=== PATIENT | female | born 2000 | race Caucasian/White ===

== ENCOUNTER 2025-05-14 18:24 | Emergency (ER) | payer OTHER, SELFPAY ==
--- OUTSIDE RECORDS SUMMARY | 2025-05-08 07:02 | XMS_ITS | Encounter Summary ---
Author Organization [facility] Address [address] [place] [address] Care Team Providers Care Registrar [employer] Name Role Phone Unavailable Primary Care Provider Unavailabl e Reason for Visit * Auth/Cert (Routine) Specialty Diagnoses / Procedures Referred By Contcecilia t Referred To Contact Obstetrics Codie Cali MD [address] [place] [phone] Phone: tel: fax: [facility] Labor and Delivery [address] [place] [address] Phone: tel: fax: Referral ID Status Reason Start Date Expiration Date Visits Re quested Visits Authorized [id number] 1 1 Encounter Details Date Type Department Care Team (Latest Contact Info) Description 05/08/2025 7:02 AM DIVISION SERGEANT - 05/10/2025 12:16 PM DIVISION SERGEANT Hospital Encounter [facility] [address] [place] [phone] Lulu Denton MD [address] [place] [address] [place] [phone] Codie Cali MD [address] [place] [phone] Breech Discharge Disposition: Home or Self Care Social History Tobacco Use Types Packs/Day Years Used Date Smoking Tobacco: Never Smokeless Tobacco: Never Alcohol Use Standard Drinks/Week Comments Not Currently 0 (1 standard drink = 0.6 oz pur e alcohol) Food Insecurity Answer Date Recorded Do you find you are eating l ess than you should because you can t pay for food? No 05/08/2025 Transportation Needs Answer Date Record ed Have you gone without health care because you didn t have a way to get there? Or worry about transportation for future doctor visits, apple picking supervisor medication, etc.? No 2024 Housing Stability Answer Date Recorded Do you worry you won t have a steady place to sleep or struggle to pay rent or mortgage? No 05/08/2025 Utility Needs Answer Date Recorded Do you have difficulty payin g for utility costs (electric, water or gas bills)? No 05/08/2025 Medication Needs Answer Date Recorded Have you skipped taking medi cation due to cost or worry you can t afford new medications? No 05/08/2025 Feeling Safe Answer Date Recorded Are you in a relationship wi th someone who hurts you emotionally and/or physically? No 04/22/2025 Food Insecurity Answer Date Recorded Patient needs follow up regardin 04/22/2025 Transportation Needs Answer Date Record ed Patient needs follow up regardin 04/22/2025 Utility Needs Answer Date Recorded Patient needs follow up regardin 04/22/2025 Comments No Sex and Gender Information Value Date Recorded Sex Assigned at Not on file Legal Sex Female 10:22 AM CDT Gender Identity Not on file Sexual Orientation Not on file documented as of this encounter Last Filed Vital Signs Vital Sign Reading Time Taken Comments Blood Pressure 131/78 05/10/2025 9:00 AM DIVISION SERGEANT Pulse 79 05/10/2025 9:00 AM DIVISION SERGEANT Temperature 36.6 C (97.9 F) 05/10/2025 9:00 AM DIVISION SERGEANT Respiratory Rate 16 05/10/2025 9:00 AM DIVISION SERGEANT Oxygen Saturation 98% 05/10/2025 9:00 AM DIVISION SERGEANT Inhaled Oxygen Concentration - - Weight 139.5 kg (307 lb 9.6 oz) 05/09/2025 4:15 AM DIVISION SERGEANT Height 182.9 cm (6') 05/08/2025 1:14 PM DIVISION SERGEANT Body Mass Index 41.72 05/08/2025 1:14 PM DIVISION SERGEANT documented in this encounter Functional Status * Morrison-Suicide Severity Rating Scale (Past Month) Question Answer Date of Assessment Author 1. Have you wished you were or wished you could go to sleep and not wake up? No 05/10/2025 8:25 AM DIVISION SERGEANT Delmis Aguilera R N 2. Have you actually had any thoughts of killing yourself? No 05/10/2025 8:25 AM Shahbaz Meyer RN 6. Have you ever done anythi ng, started to do anything, or prepared to do anything to end your life? No 05/10/2025 8:25 AM Delmis Meyer R N Is this encounter related to suicidal behavior/attempt? No 05/10/2025 4:06 AM Gaurav Hanks GN Reported By Patient 05/10/2025 4:06 AM Aristides Hanks GN * Chest Pain Assessment Question Answer Date of Assessment Author Description: Quality soreness 05/10/2025 8:55 AM Delmis Huynh RN Location: Orientation Bilateral:;lower 05/10/2025 8:55 AM Dlemis Meyer RN Location incision 05/10/2025 8:55 AM Delmis Meyer RN Pain Rating: Number 0-10 (rest) 3 05/10/2025 8:55 AM Delmis Meyer R N Response to Interventions content/relaxe d;verb alized relief 05/10/2025 8:55 AM Delmis Meyer RN * Micheal Risk Assessment Question Answer Date of Assessment Author Sensory Perception (response to environment) 4 05/10/2025 8:25 AM Delmis Meyer R N Moisture (degree skin expose d to moisture) 4 05/10/2025 8:25 AM Delmis Meyer R N Activity (ability to walk) 3 05/10/2025 8:2 5 AM Delmis Meyer RN Mobility (amount/control of body movement) 4 05/10/2025 8:25 AM Delmis Meyer R N Nutrition (quality of food intake) 4 2024 8:25 AM DIVISION SERGEANT Rohm, Delmis N, RN Friction and Shear 3 05/10/2025 8:25 AM Delmis Meeyr RN Micheal Score 22 05/10/2025 8:25 AM Delmis Meyer RN * Coping Question Answer Date of Assessment Author Involvement in Care: Significant Other at bedside;attentive to patient 05/10/2025 8:25 AM Delmis Meyer RN Observed Emotional State no concerns;calm 05/10/2025 4 :06 AM DIVISION SERGEANT Aristides Lao GN * Nipples Question Answer Date of Assessment Author Nipples (WDL) WDL except 05/10/2025 8:25 AM Delmis Meyer RN Nipples tender 05/10/2025 8:25 AM Delmis Meyer RN * Breasts Question Answer Date of Assessment Author Breasts (WDL) WDL 05/10/2025 8:25 AM Delmis Meyer RN * Perineum Question Answer Date of Assessment Author Perineum (WD) Not assessed 05/10/2025 8:25 AM Delmis Crabtree RN * Episiotomy Laceration Question Answer Date of Assessment Author Episiotomy Laceration (WDL) Not applicable 05/10/2025 8:25 AM Delmis Meyer RN * Uterus Question Answer Date of Assessment Author Uterus (WDL) WDL 05/10/2025 8:25 AM Delmis Meyer RN * Activity Question Answer Date of Assessment Author Present Activity in bed 05/10/2025 8:25 AM DIVISION SERGEANT Delmis Valentino RN * Modified Oziel Score Question Answer Date of Assessment Author Activity 2 05/08/2025 10:10 AM Maritza Trevino RN Respiration 2 05/08/2025 10:10 AM Maritza Trevino RN Circulation 2 05/08/2025 10:10 AM Maritza Trevino RN Consciousness 2 05/08/2025 10:10 AM Maritza Umanzor RN O2 Saturation 2 05/08/2025 10:10 AM Maritza Umanzor RN Dressing 2 05/08/2025 10:10 AM Mairtza Trevino RN Pain 2 05/08/2025 10:10 AM Maritza Trevino RN Ambulation 2 05/08/2025 10:10 AM Maritza Trevino RN Fasting/Feeding 2 05/08/2025 10:10 AM Maritza Pierre RN Urine Output 2 05/08/2025 10:10 AM Maritza Trevino RN Score 20 05/08/2025 10:10 AM Maritza Trevino RN * HEENT Assessments Question Answer Date of Assessment Author Ear ([facility]) [facility] 05/09/2025 9:17 PM DIVISION SERGEANT Aristides Lao GN Eye ([facility]) WD 05/09/2025 9:17 PM DIVISION SERGEANT Aristides Lao GN Vision Change: Left vision change denied 05/10/2025 8: 25 AM Delmis Meyer RN Vision Change: Right vision change denied 05/10/2025 8 :25 AM Delmis Meyer RN Head/Face ([facility]) [facility] 05/08/2025 9:09 PM DIVISION SERGEANT Aristides Francois GN Mouth ([facility]) [facility] 05/09/2025 9:17 PM DIVISION SERGEANT Aristides Lao GN * Safety Question Answer Date of Assessment Author Armband, In Place/Activated Identification;Securit y;Blood bank ID band 05/10/2025 8:25 AM Delmis Meyer RN Safety Checks Safety check completed 8:25 AM Delmis Meyer RN Activity Assist Needed Screening Independent 05/10/2025 8:25 AM Delmis Meyer RN Assistive Devices Screening None 05/10/2025 8:25 AM Delmis Meyer RN Nurse's Review of Fall Risk qShift Agree w/fall risk 05/10/2025 8:25 AM Delmis Meyer RN Add'l Individualized High Fall Risk Interventions None needed 05/10/2025 8:25 AM Delmis Meyer RN * Peripheral Neurovascular Question Answer Date of Assessment Author Peripheral Neurovascular ([facility]) [facility] except 05/08/2025 7:15 AM Maritza Trevino RN * Genitourinary Question Answer Date of Assessment Author Genitourinary ([facility]) [facility] 05/08/2025 12:10 PM Maritza Briggs RN * Skin Question Answer Date of Assessment Author Color/Characteristics pink 05/10/2025 8:25 AM Delmis Meyer RN Temperature warm 05/10/2025 8:25 AM Delmis Meyer RN Positioning independent 05/10/2025 8:25 AM Delmis Meyer RN Integrity other (comment) 05/10/2025 8:25 AM Delmis Mcnamara RN Skin (WDL) WDL except 05/10/2025 8:25 AM Delmis Meyer RN * Skin Interventions Question Answer Date of Assessment Author Hygiene Care perineal area cleans ed;other (see comments) 05/10/2025 8:25 AM Delmis Meyer RN * Pain Assessment Question Answer Date of Assessment Author Description: Frequency intermittent 8:55 AM Delmis Meyer RN Pain Management Interventions single medication modality 05/10/2025 8:25 AM Delmis Meyer RN Pain Assessment Pain Assessment/Numb er Scale (0-10) 05/10/2025 8:55 AM Delmis Meyer RN * Diabetes Risk Score (Usual Care) Answer Date of Assessment Author 19.95 05/10/2025 11:41 AM DIVISION SERGEANT QBatch, User * Diabetes Risk Score (DPP Lifestyle Modification) Answer Date of Assessment Author 8.38 05/10/2025 11:41 AM DIVISION SERGEANT QBatch, User * Diabetes Risk Score (Metformin) Answer Date of Assessment Author 17.3 05/10/2025 11:41 AM DIVISION SERGEANT QBatch, User * SIRS Score Answer Date of Assessment Author 0 05/10/2025 12:21 PM DIVISION SERGEANT QBatch, User * Void Output Question Answer Date of Assessment Author Urine Color light red 05/09/2025 2:30 AM DIVISION SERGEANT Aristides Lao GN Urine Characteristics clear 05/09/2025 2:30 AM DIVISION SERGEANT Aristides Lao GN Incontinence Containment Product Urine collection device 05/09/2025 2:30 AM Aristides Hanks GN Unmeasured Void Moderate amount urine 05/10/2025 9:00 AM DIVISION SERGEANT Pulber Marcy, BLOOD TESTER FOWL * Activity & Exercise Question Answer Date of Assessment Author Intake (%) 100% 05/09/2025 12:00 PM Delmis Meyer RN Food/Meal Outside meal/brought from home 05/09/2025 12:00 PM Delmis Meyer RN * Hygiene & Comfort Question Answer Date of Assessment Author Comfort BP;O 05/08/2025 12:00 PM Maritza Trevino RN * Antiembolism Devices Question Answer Date of Assessment Author Sequential Compression Device (SCDs) Removed/off 05/09/2025 3:45 PM Delmis Meyer R N Antiembolism Stocking Order to discontinue 05/10/2025 4:06 AM Aristides Hanks GN * Musculoskeletal Question Answer Date of Assessment Author Musculoskeletal (WDL) WDL 05/10/2025 8:25 AM Delmis Meyer RN * Pre-eclampsia Signs and Symptoms Question Answer Date of Assessment Author Preeclampsia Signs and Symptoms Swelling 8:25 AM Delmis Meyer RN * Edema Question Answer Date of Assessment Author Edema 1+ 05/10/2025 8:25 AM Delmis Meyer RN * Patient's Plans Question Answer Date of Assessment Author Plan for Pain Management Other (comment) 05/08/2025 7: 52 AM Maritza Trevino RN * RETIRED Cardiovascular Question Answer Date of Assessment Author Cardiac (WDL) WD 05/08/2025 10:10 AM Maritza Umanzor RN * Respiratory Question Answer Date of Assessment Author Respiratory (WDL) WD 05/10/2025 8:25 AM Delmis Meyer RN * Peripheral Neurovascular Question Answer Date of Assessment Author Capillary Refill equal to/less than 3 secs 05/10/2025 8:25 AM Delmis Meyer RN Calf Tenderness calf tenderness not present 05/10/2025 8:25 AM Delmis Meyer RN Peripheral Neurovascular (WD) WD except 05/10/2025 8:25 AM Delmis Meyer RN * Deep Tendon Reflexes Question Answer Date of Assessment Author Clonus None 05/10/2025 8:25 AM Delmis Meyer RN * Cognitive/Perceptual/Neuro Question Answer Date of Assessment Author Orientation oriented to;person;place;time;situation 05/10/2025 4:06 AM Aristides Hanks GN * Gastrointestinal Question Answer Date of Assessment Author Last Bowel Movement (mm/dd/yyyy) [id number] 05/10/2025 8:25 AM Delmis Meyer R N Bowel Sounds: All Quadrants hypoactive 05/09/2025 7: 50 AM Delmis Meyer RN Signs/Symptoms passing flatus 05/10/2025 8:25 AM Delmis Calderon RN Gastrointestinal ([facility]) WD 05/10/2025 8:25 AM Delmis Meyer RN * Genitourinary Question Answer Date of Assessment Author Voiding Characteristics urinary device present 05/08/2025 9:09 PM Aristides Hanks GN Genitourinary ([facility]) WD 05/10/2025 8:25 AM CS T Delmis Aguilera RN * Cardiovascular Question Answer Date of Assessment Author Cardiac ([facility]) WD 05/10/2025 8:25 AM Delmis Meyer RN * Lochia 1-3 Days Question Answer Date of Assessment Author Lochia 1-3 Days ([facility]) WD 05/10/2025 8:25 AM Delmis Meyer RN Odor similar to menstrual flow 05/10/2025 8:25 AM Delmis Meyer RN Amount scant (less than 2.5 cm on pad/hr) 05/10/2025 8:25 AM Delmis Meyer RN * Suicide Risk and Interventions Answer Date of Assessment Author No Risk 05/10/2025 8:25 AM Jenny Meyer RN * Suspected Infection Answer Date of Assessment Author 0 05/10/2025 12:21 PM DIVISION SERGEANT QBatch, User * Organ Dysfunction Score Answer Date of Assessment Author 0 05/10/2025 12:21 PM DIVISION SERGEANT QBatch, User * Sepsis Score Answer Date of Assessment Author 0 05/10/2025 12:21 PM DIVISION SERGEANT QBatch, User * Severe Sepsis Score Answer Date of Assessment Author 0 05/10/2025 12:21 PM DIVISION SERGEANT QBatch, User * Septic Shock Score Answer Date of Assessment Author 0 05/10/2025 12:21 PM DIVISION SERGEANT QBatch, User * Sepsis Review Score Answer Date of Assessment Author 0 05/10/2025 12:21 PM DIVISION SERGEANT QBatch, User * Septic Shock Criteria Answer Date of Assessment Author 0 05/10/2025 12:21 PM DIVISION SERGEANT QBatch, User * OB VTE Risk Assessment Question Answer Date of Assessment Author Have you been hospitalized m ore than 3 days in the last month? 0 05/08/2025 7:49 AM Maritza Trevino RN History of clotting/bleeding disorder? Patient denies 05/08/2025 7:49 AM Maritza Trevino RN OB VTE Score 1 05/08/2025 7:49 AM Maritza Trevino RN BMI (auto calculated) 41.76 05/08/2025 7:49 AM Maritza Trevino RN OB VTE Score Indicates Low Risk 05/08/2025 7:49 AM Maritza Trevino RN * Severe Pneumonia Score Answer Date of Assessment Author 3 05/10/2025 12:00 PM DIVISION SERGEANT QBatch, User * Two Person Skin Check Question Answer Date of Assessment Author Is Redness Present? No 05/08/2025 1:15 PM CS Janette Araujo RN Cyber Software Engineer 1 B Willy JOHNSON 05/08/2025 1:15 PM Janette Grady RN Cyber Software Engineer 2 Cynthia Airas RN 05/08/2025 1:15 PM Janette Ortega, RN * Petra Emanuel Fall Risk on Admission Question Answer Date of Assessment Author Last Known Fall 0 05/08/2025 7:53 AM Maritza Cunningham RN Mobility 0 05/08/2025 7:53 AM Maritza Trevino RN Medications 0 05/08/2025 7:53 AM Maritza Trevino RN Mental Status/LOC/Awareness 0 05/08/2025 7: 53 AM Maritza Trevino RN Toileting Needs 0 05/08/2025 7:53 AM Maritza Cunningham RN Volume/Electrolyte Status 0 05/08/2025 7:53 AM Maritza Trevino RN Communication/Sensory 0 05/08/2025 7:53 AM Maritza Trevino RN Behavior 0 05/08/2025 7:53 AM Maritza Trevino RN Fall Risk Score on Admission (read only) 1 05/08/2025 7:53 AM Maritza Trevino RN Patient's Fall Risk on Admis feliberto (read only) Low 05/08/2025 7:53 AM Maritza Trevino RN * Current Predicted Fall Risk Designation (read only) Answer Date of Assessment Author Low 05/10/2025 7:50 AM DIVISION SERGEANT Backgroun d, Cognitive Computing * PPH Risk Category Admission Question Answer Date of Assessment Author Prior or Prio r Uterine Incision No 05/08/2025 7:51 AM Maritza Trevino RN Number of Previous Births 1 05/08/2025 7:51 AM Maritza Trevino RN Multiple Births No 05/08/2025 7:51 AM Maritza Cunningham RN Known Bleeding Disorder or Coagulopathy No 1 07/09/2024 7:51 AM Maritza Trevino RN Known Intrauterine Demise No 7:51 AM Maritza Trevino RN Large Uterine Fibroids No 05/08/2025 7:51 AM Maritza Trevino RN Intraamniotic Infection No 05/08/2025 7:51 A M Maritza Trevino RN Polyhydramnios No 05/08/2025 7:51 AM Maritza Umanzor RN Suspected Pre-Eclampsia or H ELLP Syndrome No 05/08/2025 7:51 AM Maritza Trevino RN Active Bleeding More Than Bloody Show No 1 07/09/2024 7:51 AM Maritza Trevino RN Suspected Abruption No 05/08/2025 7:51 AM CS T Maritza Olivera RN Suspected Placenta Accreta or Percreta No 7:51 AM Maritza Trevino RN Placenta Previa or Low Lying Placenta No 7:51 AM Maritza Trevino RN Does patient have any history of PPH? No 7:51 AM Maritza Trevino RN * PPH Risk Category: Post Question Answer Date of Assessment Author Did the patient experience a uterine rupture? No 05/08/2025 10:10 AM Maritza Trevino RN Is the patient actively blee ding enough to soak >1 pad/hr or passing large clot (>= 6 cm)? No 05/08/2025 10:10 AM Maritza Trevino R N Did the patient have a retai francheska placenta or difficult placental abstraction? No 05/08/2025 10:10 AM Maritza Trevino RN Significant genital trauma? No 05/08/2025 10 :10 AM Maritza Trevino RN * Adult Acuity Scoring Question Answer Date of Assessment Author Current Predicted Fall Risk (auto calculated) 0.79 05/10/2025 7:50 AM DIVISION SERGEANT Yousif Cogni tive Computing Sofa Score(auto calculated) 4 05/10/2025 12 :02 PM DIVISION SERGEANT QBatch, User Readmission Risk Score 5 05/10/2025 12:31 P M Janette Leiva RN [id number] Score (Used for patients with atrial fibrillation) 1 05/10/2025 12:31 PM Patricia Leiva RN HAS-BLED Score (Used for patients with atrial fibrillation) 1 05/10/2025 12:31 PM Patricia Leiva RN * Score Answer Date of Assessment Author 10 05/08/2025 10:10 AM Araseli Trevino RN * Care Question Answer Date of Assessment Author Patellar Reflex: Left +1 05/08/2025 7:44 AM Maritza Trevino RN Patellar Reflex: Right +1 05/08/2025 7:44 AM Maritza Trevino RN * Micheal Risk Assessment Question Answer Date of Assessment Author Activity (ability to walk) 3 05/10/2025 8:2 5 AM Delmis Meyer RN Mobility (amount/control of body movement) 4 05/10/2025 8:25 AM Delmis Meyer R N * Activity Question Answer Date of Assessment Author Present Activity in bed 05/10/2025 8:25 AM Delmis Calderon RN * Modified Oziel Score Question Answer Date of Assessment Author Activity 2 05/08/2025 10:10 AM Maritza Trevino RN Respiration 2 05/08/2025 10:10 AM Maritza Trevino RN Circulation 2 05/08/2025 10:10 AM Maritza Trevino RN Consciousness 2 05/08/2025 10:10 AM Maritza Umanzor RN O2 Saturation 2 05/08/2025 10:10 AM Maritza Umanzor RN Dressing 2 05/08/2025 10:10 AM Maritza Trevino RN Pain 2 05/08/2025 10:10 AM Maritza Trevino RN Ambulation 2 05/08/2025 10:10 AM Maritza Trevino RN Fasting/Feeding 2 05/08/2025 10:10 AM Maritza Pierre RN Urine Output 2 05/08/2025 10:10 AM Maritza Trevino RN Score 20 05/08/2025 10:10 AM Maritza Trevino RN * Safety Question Answer Date of Assessment Author [place], In Place/Activated Identification;Securit y;Blood bank ID band 05/10/2025 8:25 AM eDlmis Meyer RN Safety Checks Safety check completed 8:25 AM Delmis Meyer RN Activity Assist Needed Screening Independent 05/10/2025 8:25 AM Delmis Meyer RN Assistive Devices Screening None 05/10/2025 8:25 AM Delmis Meyer RN Nurse's Review of Fall Risk qShift Agree w/fall risk 05/10/2025 8:25 AM Delmis Meyer RN Add'l Individualized High Fall Risk Interventions None needed 05/10/2025 8:25 AM Delmis Meyer RN * Skin Question Answer Date of Assessment Author Positioning independent 05/10/2025 8:25 AM Delmis Meyer RN * Skin Interventions Question Answer Date of Assessment Author Hygiene Care perineal area cleans ed;other (see comments) 05/10/2025 8:25 AM Delmis Meyer RN * Activity & Exercise Question Answer Date of Assessment Author Intake (%) 100% 05/09/2025 12:00 PM Delmis Meyer RN Food/Meal Outside meal/brought from home 05/09/2025 12:00 PM Delmis Meyer RN * Hygiene & Comfort Question Answer Date of Assessment Author Comfort BP;O 05/08/2025 12:00 PM Maritza Trevino RN * Antiembolism Devices Question Answer Date of Assessment Author Sequential Compression Device (SCDs) Removed/off 05/09/2025 3:45 PM DIVISION SERGEANT Delmis Aguilera R N Antiembolism Stocking Order to discontinue 05/10/2025 4:06 AM Aristides Hanks GN * Musculoskeletal Question Answer Date of Assessment Author Musculoskeletal (WDL) WDL 05/10/2025 8:25 AM Delmis Meyer RN * Cognitive/Perceptual/Neuro Question Answer Date of Assessment Author Orientation oriented to;person;place;time;situation 05/10/2025 4:06 AM Aristides Hanks GN * Petra Emanuel Fall Risk on Admission Question Answer Date of Assessment Author Last Known Fall 0 05/08/2025 7:53 AM Maritza Cunningham RN Mobility 0 05/08/2025 7:53 AM Maritza Trevino RN Medications 0 05/08/2025 7:53 AM Maritza Trevino RN Mental Status/LOC/Awareness 0 05/08/2025 7: 53 AM Maritza Trevino RN Toileting Needs 0 05/08/2025 7:53 AM Maritza Cunningham RN Volume/Electrolyte Status 0 05/08/2025 7:53 AM Maritza Trevino RN Communication/Sensory 0 05/08/2025 7:53 AM Maritza Trevino RN Behavior 0 05/08/2025 7:53 AM Maritza Trevino RN Fall Risk Score on Admission (read only) 1 05/08/2025 7:53 AM Maritza Trevino RN Patient's Fall Risk on Admis feliberto (read only) Low 05/08/2025 7:53 AM Maritza Trevino RN * Current Predicted Fall Risk Designation (read only) Answer Date of Assessment Author Low 05/10/2025 7:50 AM DIVISION SERGEANT Backgroun d, Cognitive Computing * Adult Acuity Scoring Question Answer Date of Assessment Author Current Predicted Fall Risk (auto calculated) 0.79 05/10/2025 7:50 AM DIVISION SERGEANT Background, Cogni tive Computing documented as of this encounter Mental Status * Morrison-Suicide Severity Rating Scale (Past Month) Question Answer Entry Date Author 1. Have you wished you were or wished you could go to sleep and not wake up? No 05/10/2025 8:25 AM Delmis Meyer R N 2. Have you actually had any thoughts of killing yourself? No 05/10/2025 8:25 AM Shahbaz Meyer RN 6. Have you ever done anythi ng, started to do anything, or prepared to do anything to end your life? No 05/10/2025 8:25 AM Delmis Meyer R N Is this encounter related to suicidal behavior/attempt? No 05/10/2025 4:06 AM Gaurav Hanks GN Reported By Patient 05/10/2025 4:06 AM Aristides Hanks GN * Coping Question Answer Entry Date Author Observed Emotional State no concerns;calm 05/10/2025 4 :06 AM Aristides Hanks GN * Safety Question Answer Entry Date Author Bri, In Place/Activated Identification;Securit y;Blood bank ID band 05/10/2025 8:25 AM Delmis Meyer RN * Peripheral Neurovascular Question Answer Entry Date Author Peripheral Neurovascular (WDL) WDL except 05/08/2025 7:15 AM Maritza Trevino RN * Deep Tendon Reflexes Question Answer Entry Date Author Clonus None 05/10/2025 8:25 AM Delmis Meyer RN * Cognitive/Perceptual/Neuro Question Answer Entry Date Author Cognitive/Perceptual/Neur o (WDL) WDL 05/10/2025 8:25 AM Delmis Meyer RN Orientation oriented to;person;place;time;s ituation 05/10/2025 4:06 AM Aristides Hanks GN * Spiritual and Cultural Question Answer Entry Date Author Are there any spiritual or c ultural concerns with this ? NI 05/10/2025 8:25 AM Shahbaz Meyer RN * Total Answer Entry Date Author 0 05/10/2025 8:25 AM Jenny Meyer RN * Suicide Risk and Interventions Answer Entry Date Author No Risk 05/10/2025 8:25 AM Jenny Meyer RN * SEAN Response Question Answer Entry Date Author SEAN Response Activated No 05/10/2025 4:06 A M DIVISION SERGEANT Aristides Lao, GN * Violence Assessment Tool Risk Indicators Question Answer Entry Date Author Violence Assessment Tool Total Score 0 05/10/2025 4:06 AM DIVISION SERGEANT Aristides Lao GN Assessment Type Reassessment 05/10/2025 4:06 AM DIVISION SERGEANT Aristides Francois N, GN History of Violence 0 05/10/2025 4:06 AM CS Aristides Carpenter N, GN Confused 0 05/10/2025 4:06 AM DIVISION SERGEANT Aristides Lao N, GN Irritable 0 05/10/2025 4:06 AM DIVISION SERGEANT Niecy Laoy N, GN Boisterous 0 05/10/2025 4:06 AM DIVISION SERGEANT Aristides Lao N, GN Verbal Threats 0 05/10/2025 4:06 AM DIVISION SERGEANT Bryan toAristides, GN Physical Threats 0 05/10/2025 4:06 AM DIVISION SERGEANT Aristides Alexander, GN Attacking Objects 0 05/10/2025 4:06 AM DIVISION SERGEANT Niecy Laoy N, GN Agitated/Impulsive 0 05/10/2025 4:06 AM DIVISION SERGEANT Niecy Laoy N, GN Paranoid/Suspicious 0 05/10/2025 4:06 AM CS Aristides Carpenter, GN Substance Intoxication/Withdrawal 0 05/10/2025 4:06 AM DIVISION SERGEANT Niecy Laoy N, GN Socially Inappropriate/Disruptive Behavior 0 05/10/2025 4:06 AM DIVISION SERGEANT Aristides Lao GN Body Language 0 05/10/2025 4:06 AM DIVISION SERGEANT Aristides Howell N, GN * Violence Risk Question Answer Entry Date Author Are you concerned about the patient's violence risk? No 05/10/2025 4:06 AM DIVISION SERGEANT Niecy Lao y N GN * [place] Depression Scale Concern Calculation Answer Entry Date Author 2 05/08/2025 3:50 PM DIVISION SERGEANT Jenny Aguilera N, RN * Violence Assessment Tool Total Score Answer Entry Date Author 0 05/10/2025 4:06 AM DIVISION SERGEANT Melissa Lao GN * [place] Depression Scale: In the Past 7 Days Question Answer Entry Date Author I have been able to laugh an d see the funny side of things. 0 05/08/2025 3:50 PM DIVISION SERGEANT Dario Aguilera i, RN I have looked forward with e njoyment to things. 0 05/08/2025 3:50 PM DIVISION SERGEANT Delmis Aguilera, R N I have blamed myself unneces sarily when things went wrong. 1 05/08/2025 3:50 PM DIVISION SERGEANT Delmis Aguilera RN I have been anxious or worri ed for no good reason. 1 05/08/2025 3:50 PM DIVISION SERGEANT Delmis Aguilera, R N I have felt scared or panick y for no good reason. 1 05/08/2025 3:50 PM DIVISION SERGEANT Delmis Aguilera, Jayla N Things have been getting on top of me. 1 05/08/2025 3:50 PM DIVISION SERGEANT Delmis Aguilera, R N I have been so unhappy that I have had difficulty sleeping. 0 05/08/2025 3:50 PM DIVISION SERGEANT Delmsi Aguilera RN I have felt sad or miserable. 1 05/08/2025 3:50 PM DIVISION SERGEANT Delmis Aguilera RN I have been so unhappy that I have been crying. 1 05/08/2025 3:50 PM DIVISION SERGEANT Delmis Aguilera, R N The thought of harming mysel f has occurred to me. 0 05/08/2025 3:50 PM DIVISION SERGEANT Delmis Aguilera, R N [place] Depressi on Scale Total 6 05/08/2025 3:50 PM DIVISION SERGEANT Delmis Aguilera, R N * Care Question Answer Entry Date Author Patellar Reflex: Left +1 05/08/2025 7:44 AM Maritza Trevino RN Patellar Reflex: Right +1 05/08/2025 7:44 AM Maritza Trevino RN documented in this encounter Discharge Instructions * Discharge Instructions* Delmis Aguilera RN - 05/10/2025 10:20 AM DIVISION SERGEANT Discharge Instructions for Patients RHOGAM: Candidate for Rhogam? No EMOTIONS: It is not unusual to experience a letdown or have depressed feelings even though you are extremely happy and relieved after childbirth. If you or your family have concerns about your emotions notify your physician. Contact 911 if you have thoughts of harming yourself or your baby. HYPERTENSION/PRECLAMPSIA: If not treated , hypertension may cause seizures Symptoms of hypertension/pre-eclampsia include Headache which is unrelieved by a dose of Tylenol or Ibuprofen Visual changes such as blurry or double vision or seeing spots/flashing lights Upper abdominal pain Chest pain or shortness of breath Blood Pressure equal to or greater than 140 systolic (top number) OR equal to or greater than 90 diastolic (bottom number) If you have any of these symptoms, call your doctor???s office for instructions. ACTIVITY: Rest frequently while baby is napping. Increase your activity each day as tolerated. It may take 6 to 8 weeks to return to pre- activity levels. Avoid straining; no lifting greater than 10 lbs for 1-2 weeks. Be cautious when going up and down stairs. You may shower. No douching, tampons or intercourse until you return for your check up. No driving for 2 weeks from date of discharge. Do not drive while taking narcotic pain medications. SECTION: Remove the Mepilex dressing from your incision on day 7 to 10 ( 05/18/25 per Isabell HICKEY ) unless directed otherwise by your provider. After you shower, pat the section incision dry with a clean towel. Look at the -section incision daily; notify your physician if there is an increase in redness or drainage. Do not sit in tub of water until given permission by your physician. For ease of movement, after a , hold a pillow firmly against the incision or wear your binder when changing position or wear your abdominal binder. Keep hands off the incision to help prevent infection. Good hand hygiene helps prevent the spread of infectious disease. DIET: Eat a balanced diet, do not try to lose weight by cutting calories immediately after delivery. Drink 6-8 glasses of fluid daily. Continue your vitamins, especially if you are . : Refer to [facility] outpatient department, your OB/assistant therapy aide/criminal court judge's office for questions about . FORMULA FEEDING: Avoid breast stimulation, such as direct shower spray to chest Do not pump your breasts as this may cause milk production and possible engorgement. Wear a good support bra day & night until the fullness goes away. If breasts are painful and engorged, using cold compresses for 15 - 20 minutes at a time to the breasts and/or under the arms may provide relief. ABDOMINAL CRAMPS: Many women experience after- pains, caused by the uterus shrinking down to its pre- size. These cramps may increase when . Discuss pain medication with your doctor. VAGINAL DISCHARGE: The first week the vaginal drainage will be red - red brown in color. If you experience bleeding that saturates one maxi-pad in an hour, or you pass golf ball size clots or larger, notify your physician. After the first few days vaginal drainage will decrease and become watery and turn brown/pinkish brown. By 3-4 weeks the discharge will turn yellowish-white. Do not douche or use tampons. HEMORRHOIDS: Hemorrhoids may appear during or at delivery. They will slowly disappear. Use sitz baths and/or topical medication for relief of discomfort. To avoid constipation drink of plenty fluids andeat foods high in fiber daily. May continue to take stool softeners as directed by your physician. EPIDURAL/SPINAL ANESTHESIA: You may be sore or bruised where your epidural or spinal was placed. Notify your physician if you experience headache that worsens when you sit or stand, numbness or weakness of your legs or if you have difficulty emptying your bladder. SEXUAL INTERCOURSE: You may resume intercourse after approximately 6 weeks. Talk with your physician about control as it is possible to become again before your period returns even if you are . CALL THE DOCTOR IF YOU EXPERIENCE: Persistent Headache unrelieved by medication Visual changes such as blurry vision, spots or flashing lights Upper abdominal pain, chest pain or shortness of breath If you have been instructed to take your blood pressure at home, call and report Blood Pressure readings equal to or greater than 140 systolic (top number) OR equal to or greater than 90 diastolic (bottom number) A temperature above 100.4 F. Increased redness, drainage or pain from the Section incision New pain or pain not controlled by prescribed medication Heavy vaginal bleeding or are passing golf ball size clots Light headedness Chest pain or shortness of breath Swelling, redness, and/or tenderness in legs Difficulty urinating or increased frequency or burning with urination Notify your physician if you have persistent breast swelling, with tenderness accompanied by redness Ask your doctor before taking any medications that he/she did not prescribe for you. Acetaminophen (APAP, Tylenol) is found in many combination pain medications. Acetaminophen can be harmful to your liver. Do not exceed 3000mg/day. SMOKING CESSATION: If you smoke/vape you are advised to quit. Ask your doctor for advice if you need assistance to stop smoking. [facility] has a stop smoking program that you might find helpful; call [phone]. Second-hand smoke is not healthy for you or the baby so do not allow smoking in your house or car. Education: [x] POST magnet given [x] Instructed patient to add the AIM Pre-eclampsia symptoms QR code to their phone [x] Received Your Guide to and Care Discharging RN : Delmis Aguilera RN SION SERGEANT * Attachments The following attachments cannot be sent through Care Everywhere. * Section: Post op (Lao) * After Your : The First 12 Weeks: Video (Lao) documented in this encounter Medications at Time of Discharge oxyCODONE (ROXICODONE) 5 mg tabletIndications :S/P section Take 1 Tablet (5 mg) by mouth every 4 hours as needed for Pain. Max Daily Amount: 30 mg 20 Tablet 05/10/2025 11:59 AM DIVISION SERGEANT 05/10/2025 05/14/2025 ibuprofen (MOTRIN) 800 mg tablet Take 1 Tablet (800 mg) by mouth every 8 hours as needed for Pain, Mild. 30 Tablet 1 05/10/2025 VIT-IRON FUM-FOLIC AC ORAL Take by mouth daily. documented as of this encounter Progress Notes * Amber Lee MD - 05/09/2025 8:07 AM CST Section Postoperative Progress Note Subjective: Day 1: s/p Delivery The patient feels well. Pain is well controlled with current medications. The patient is ambulatingwell. The patient is currently . The patient is tolerating a normal diet. Flatus has been passed. Lochia is normal. Objective: BP 110/65 Pulse 73 Temp 97.6 ??F (36.4 ??C) (Temporal) Resp 18 Ht 6' (1.829 m) Wt (!) 139.5 kg (307 lb 9.6 oz) SpO2 97% Yes BMI 41.72 kg/m?? General: alert, in no distress Breast Exam deferred at this time Bowel Sounds: active Uterine Fundus: normal size, well involuted, firm, non-tender Incision: healing well, no significant drainage, no dehiscence, no significant erythema DVT Evaluation: No evidence of DVT seen on physical exam. Lab Results Component Value Date ABOGROUP O 05/08/2025 Lab Results Component Value Date WBC 10.5 05/09/2025 HGB 10.9 (L) 05/09/2025 HCT 32.8 (L) 05/09/2025 PLT 163 05/09/2025 MCV 89.9 05/09/2025 Lab Results Component Value Date RUBELLAIGG Immune 09/23/2024 Assessment: Status post section. Doing well postoperatively. Active Problems: Obesity (BMI 35.0-39.9 without comorbidity) Breech Plan: Continue current postoperative care. Discharge home moday; D/C instructions discussed. F/U in 6 weeks. Oral pain meds Amber Lee MD SION SERGEANT * Delmis Aguilera RN - 05/08/2025 12:31 PM CST [facility] C SECTION REPORT-MOTHER Bri Emanuel 25 y.o. 05/08/2025 1:15 PM Provider: Luiza Martinez Cnm Delivery Provider: LULU DENTON /Para: Gestational Age: 39w6d Date of Delivery: 05/08/2025 Time of Delivery: 9:35 AM Type of Delivery: , Low Transverse Principal Indication: Malpresentation Secondary Indication: Primary or Repeat : primary Labor Complications: Anesthesia: Spinal *For Additional Medication given by Anesthesia go to Procedure tab in the MAR Duramorph given: yes Terbutaline given during labor: no Diagnosis of Chorioamnionitis: no Post Delivery Antibiotics: no Maternal labs: Lab Results Component Value Date/Time ABOGROUP O 05/08/2025 08:16 AM RHTYPE Positive 05/08/2025 08:16 AM RUBELLAIGG Immune 09/23/2024 12:00 AM HIV1X2 nonreactive 09/23/2024 12:00 AM Lab Results Component Value Date SYPHABTOT Non-reactive 05/08/2025 Lab Results Component Value Date/Time HEPBSAG negative 09/23/2024 12:00 AM Drug Screen: No results found for: AMPHETAMINEQ , BARBITQLUR , BENZDIAQLUR , CANNABQLUR , OPIATEQUA , COCAINEQUAL , PHENCYCLID Current Labs: Lab Results Component Value Date WBC 10.2 05/08/2025 HGB 13.2 05/08/2025 HCT 39.5 05/08/2025 PLT 170 05/08/2025 MCV 88.8 05/08/2025 Medical History: No past medical history on file. Patient Active Problem List Diagnosis Code Obesity (BMI 35.0-39.9 without comorbidity) E66.9 Breech presentation O32.1XX0 care, subsequent in third trimester Z34.83 Breech O32.1XX0 Social History: Social History Tobacco Use Smoking Status Never Smokeless Tobacco Never Social History Substance and Sexual Activity Drug Use Never Social History Substance and Sexual Activity Alcohol Use Not Currently Social Concerns: No Hotline Call Made: No Hotline Note Applied: N/A IV:Yes EBL: No blood loss documented. QBL: QBL: Quantitative Blood Loss (mL) CALCULATED, READ ONLY: 86 mL (05/08/25 1250) Running Total QBL: Running Total QBL (mL) CALCULATED, READ ONLY: 877.8 (05/08/25 1250) Vitals: BP 126/65 Temp 97 ??F (36.1 ??C) (Tympanic) Resp 12 Ht 6' 0.01 (1.829 m) Wt (!) 139.7 kg (308 lb) SpO2 98% Unknown BMI 41.76 kg/m?? Uterus Uterus (WDL): WDL (05/08/25 1250) Fundal Height: 1 finger breadth below umbilicus (05/08/25 1250) Uterus Position: midline (05/08/25 1250) Uterus Consistency: firm w/o massage (05/08/25 1250) Lochia 1-3 Days Lochia 1-3 Days (WDL): WDL except (05/08/25 1250) Color: rubra (05/08/25 1250) Amount: clots present;moderate (less than 15 cm on pad/hr) (05/08/25 1250) Void: Romo catheter dependent to gravity Plan to Breastmilk feed? (Asked prior to first feed): Yes (05/08/25 0752) Data Validate disassociated Yes Any Validated Severe range pressures during this admission: no Mother Facility worksheet complete Yes Additional Information: Increased bleeding with clots near end of recovery, pads weighed 421.8. Dr Denton notified, IM methergine given as ordered RN Giving Report: Maritza Olivera RN RN Recieving Report: Delmis JOHNSON (Note: date, time, and some lab results defaults from Nursing documentation; if incomplete when note opened, this information will not be available.) SION SERGEANT SION SERGEANT * Harris Linares RN - 04/22/2025 8:07 AM CST Pt here for external cephalic version. Unsuccessful. Pt tolerated well. NST reactive and reviewed by Dr. Cali. Pt denies UC. Discharge teaching and fkc sheet provided. Verbalized understanding. Amb off unit. No s/s of distress noted. Pt denied w/c escort. SION SERGEANT documented in this encounter H&P Notes * Lulu Denton MD - 05/08/2025 8:49 AM CST OB History and Physical Bri Emanuel [id number] 05/08/2025 8:50 AM Primary OB Provider: [facility] HPI: Bri Emanuel is a 25 y.o. female at 39w6d weeks gestation who is being admitted for , for malpresentation - breech. The patient denies contractions. She denies vaginal bleeding. She denies rupture of membranes. movement is present. Partner Matt is at bedside. OB History: OB History Para Term AB Living 2 1 1 0 0 1 SAB IAB Ectopic Multiple Live Births 0 0 0 0 0 # Outcome Date GA Lbr Timbo/2nd Weight Sex Type Anes PTL Lv 2 Current 1 Term Vag-Spont EPI Current Medications: Medications Prior to Admission Medication Sig Dispense Refill Last Dose/Taking VIT-IRON FUM-FOLIC AC ORAL Take by mouth daily. 05/07/2025 Morning Allergies: No Known Allergies History: Past Medical/Surgical/Social History as well as allergies & medications are reviewed in the electronic record. Please see elecronic record for details. Review of Systems: General: negative for unexpected weight change, fever, chills Psychological: negative for anxiety and depressive symptoms Breast: negative for breast lumps or pain Respiratory: negative for cough, shortness of breath, wheezing Cardiovascular: negative for chest pain or dyspnea on exertion Gastrointestinal: negative for reflux, abdominal pain, change in bowel habits, or black or bloody stool Genitourinary: negative for dysuria, trouble voiding or hematuria Obstetrical: no uterine tenderness Musculoskeletal : negative for back pain, neck pain, joint pain or swelling Neurological: negative for TIA or stroke symptoms Dermatological: negative for skin rashes or unusual skin lesions Physical Exam: BP 112/61 (Patient Position (BP): Sitting) Temp 97.1 ??F (36.2 ??C) (Tympanic) Resp 18 Ht 6' 0.01 (1.829 m) Wt (!) 139.7 kg (308 lb) SpO2 98% No BMI 41.76 kg/m?? General appearance: alert, in no distress Lungs: clear to auscultation bilaterally, normal respiratory effort Heart: normal rate, regular rhythm, normal S1, S2, no murmurs, rubs, clicks or gallops Abdomen: soft, gravid, no masses, no fundal tenderness Extremities: extremities normal, atraumatic, no cyanosis or edema, intact distal pulses, moves all extremities equally, no edema, redness or tenderness in the calves or thighs, normal strength, normal tone EFW: 8 pounds, 0 ounces Presentation: breech- head to maternal left upper quadrant. Cervix: not examined Membrane rupture: None Assessment: Baseline: 140 bpm Variability: moderate Accelerations: present Decelerations: Absent [place]: infrequent Interpretation: Category 1 Lab Review: No results found for: [facility] ABO GROUP Date Value Ref Range Status 05/08/2025 O Final ABSTRACTED RUBELLA IGG Date Value Ref Range Status 09/23/2024 Immune Final No results found for: [id number] Problem List: Active Problems: * No active hospital problems. * [id number] weeks gestation. Patient Active Problem List Diagnosis Code Obesity (BMI 35.0-39.9 without comorbidity) E66.9 Breech presentation O32.1XX0 care, subsequent in third trimester Z34.83 Breech O32.1XX0 Plan: Breech presentation confirmed by US today. Patient desires to proceed with a Primary section. R/B/A's of a section was d/w the patient which included but is not limited to the risks ofanesthesia, bleeding, infection, damage to any surrounding organs, possible embolic phenomena etc. Lulu Denton MD 05/08/2025 8:50 AM SION SERGEANT documented in this encounter Procedure Notes * Harris Linares RN - 04/22/2025 8:04 AM CSTProcedure(s): NONSTRESS TEST Antepartum Heart Rate Tracing Bri Barcenas Adelfo : 2000 DOS: 04/22/25 Indication: External version attempt Gestational Age: 37w4d Interpreting physician: Dr. Codie Cali Total EFM Time: Greater than 20 minutes NEHA RN at bedside, patient evaluated Harris Linares, ELIZABETH Physician Interpretation: Non-Stress Test Gestational Age: 37w4d Baseline: Variability: Accelerations: Decelerations: TOCO: Interpretation: Recommendation(s): Comments: SION SERGEANT documented in this encounter OR Notes * Operative Report - Lulu Denton MD - 05/08/2025 9:56 AM CST Operative Report: Section Bri Emanuel [id number] 05/08/2025 9:57 AM Pre-operative Diagnosis: 1. 39w6d IUP 2. malpresentation - Breech Post -operative Diagnosis: same as pre-operative diagnosis Indications: see pre-op diagnosis above, H&P, and most recent progress note(s) Procedure: primary Low Transverse Section Surgeon: Lulu Denton MD Anesthesia: Spinal/Anesthesiologist: Kimberly Polk MD [employer]ANCIAL INSTITUTION VICE PRESIDENT: Mar Bautista CRNA Operative Findings: Viable female delivered without complication. Gestational Age: 39w6d Date of Delivery: 05/08/2025 Time of Delivery: 9:35 AM [place] Sex: Female Delivery Type: Refer to Delivery Summary. Delayed Cord Clamping: Yes (Refer to Delivery Summary) [place] Weight: 3160 g (6 lb 15.5 oz) 1 Minute: 9 5 Minutes: 9 Maternal Findings: The uterine outline, tubes and ovaries appeared normal. Blood Loss: QBL: Quantitative Blood Loss (mL) CALCULATED, READ ONLY: 370 mL (05/08/25 0954) Running Total QBL: Running Total QBL (mL) CALCULATED, READ ONLY: 370 (05/08/25 0954) Drains: Romo catheter Specimens: Cord blood sample was obtained. The placenta is not sent to pathology. No results found for: [facility] Complications: None Disposition: to postop care on labor and delivery in stable condition Delivery Summary: Review the Delivery Report for details. Procedure Details: The patient is counseled on the proposed procedure and gives informed consent. The site of surgery was properly noted. The patient was taken to the Operating Room, identified as Bri Emanuel and the procedure verified as Delivery. A Time Out was held and the above information confirmed. The patient received antibiotic prophylaxis in the form of Ancef prior tothe skin incision. After informed consent, placement of Romo, SCDs, and appropriate anesthesia as listed above, the patient was prepped and draped in usual fashion. A Pfannenstiel incision was made and carried down through the subcutaneous tissue to the fascia. Fascial incision was made and extended transversely. The fascia was from the underlying rectus tissue superiorly and inferiorly. The rectus muscles were and the peritoneum was identified and entered. The peritoneal incision was extended longitudinally with careful visualization of the bladder. A low transverse uterine incision was made. The baby was delivered in a cami breech presentation through the hysterotomy using usual [place] maneuvers. The cord was clamped and cut 30 seconds after . The baby was then handed off to the awaiting NICU team. Samples for cord blood were obtained for evaluation. Cord ph samples were not collected. The placenta was removed intact and appeared normal. The uterine outline, tubes and ovaries appeared normal. The uterine incision was closed with running unlocked sutures of 0 Vicryl in 2 layer(s). The abdomen is cleared of clots and debris. The uterine incision was reexamined and hemostasis was observed. The fascia was then reapproximated with running sutures of 0 Vicryl. The adipose tissue was irrigated and hemostasis was confirmed. The subcutaneous tissue was approximated with 3-0 gut. The skin was approximated with 4-0 Biosyn subcuticular and Mepilex dressing is applied. Instrument, sponge, and needle counts were correct times two per nursing. The patient tolerated theprocedure well and is prepared for transfer to recovery in stable condition. Lulu Denton MD 9:57 AM 05/08/2025 SION SERGEANT documented in this encounter Miscellaneous Notes * Care Plan - Delmis Aguilera RN - 05/10/2025 12:22 PM CST Discharge instructions reviewed with patient with written copy provided. Patient verbalized understanding and all questions answered. Patient was escorted out via wheelchair by hospital staff to private car at 1216. Shift Summary Pain at the incision site decreased after pain medication was given, and patient verbalized relief. Wound assessment showed intact, dry dressing on the lower abdomen, and skin was generally within defined limits except for minimal edema. Discharge teaching was completed and patient expressed understanding, with readiness for discharge confirmed. Gastrointestinal function was supported with activity, fluid, and fiber intake, and passing flatus was noted. Overall, patient remained comfortable and engaged in self-care, with no acute concerns during the shift. Verbalizes/displays acceptable comfort level or baseline comfort level: Pain at the incision site decreased from 4 to 3 after administration of a single pain medication, and patient verbalized reliefand appeared content/relaxed. Infection Risk/Actual: Infection prevention, control, or resolution by discharge: No fever was present and the wound dressing on the lower abdomen remained intact and dry throughout the shift. Identify discharge needs upon admission and through discharge: Discharge teaching was completed andpatient verbalized understanding; patient is ready for discharge as soon as possible. Maintain skin integrity and/or promote wound healing by discharge: Skin and wound assessments were within defined limits except for minimal pedal and pretibial edema, and the lower abdominal wound dressing remained intact and dry. Achieve optimal gastrointestinal function by discharge or maintain baseline function: Passing flatus was noted and bowel function was addressed with activity, fluid, and fiber intake promoted. SION SERGEANT * Care Plan - Aristides Lao GN - 05/10/2025 5:27 AM CST Shift Summary Pain rating decreased after medication administration, with lower abdominal soreness improving during the shift. No falls or injuries occurred, and safety checks were completed at regular intervals. CS incision dressing remained dry and intact, and minimal edema persisted without change. Lochia and perineum assessments were consistently within defined limits, with no complications documented. Overall, comfort improved and no preventable complications or injuries were documented during the shift. Verbalizes/displays acceptable comfort level or baseline comfort level: Lower abdominal soreness was present but pain rating decreased from 3 to 2 after single medication modality intervention duringthe shift. Safety/Fall: Absence of fall, injury, harm during hospitalization: No falls, injuries, or harm occurred; safety checks were consistently completed and fall risk was reviewed and agreed upon throughout the shift. Maintain skin integrity and/or promote wound healing by discharge: CS incision dressing remained dry and intact with no drainage, and minimal pedal and pretibial edema persisted without change duringthe shift. Remain free of preventable injury/complications and achieve optimal health throughout , process and period: Lochia and perineum assessments remained within defined limits, and no complications were documented during the shift. SION SERGEANT * Care Plan - Delmis Aguilera RN - 05/09/2025 4:30 PM CST Shift Summary Acetaminophen and enoxaparin were administered in the morning, with pain relief noted after acetaminophen. Pain remained mild to moderate and intermittent, with comfort maintained after interventions. Lower abdominal wound dressing stayed dry and intact, and wound status was documented as WDL. Edema in the lower extremities remained mild and unchanged, and no calf tenderness was present. Overall, comfort was maintained, wound integrity preserved, and no preventable complications or injuries occurred during the shift. Verbalizes/displays acceptable comfort level or baseline comfort level: Pain in the bilateral lowerarea remained mild to moderate throughout the shift, with intermittent soreness and pain ratings fluctuating between 2 and 3; acetaminophen was administered and verbalized relief was noted after inter vention. Infection Risk/Actual: Infection prevention, control, or resolution by discharge: Temperature remained stable and within normal limits, and the lower abdominal wound dressing stayed dry and intact throughout the shift. Maintain skin integrity and/or promote wound healing by discharge: Lower abdominal wound dressing remained dry and intact, and wound documentation indicated WDL status at both assessments. Remain free of preventable injury/complications and achieve optimal health throughout , process and period: No calf tenderness was present, edema remained mild and unchanged, and safety checks were completed with no fall risk interventions needed. Achieve optimal peripheral neurovascular function by discharge or maintain baseline function: Peripheral neurovascular assessments were WDL except for mild pedal and pretibial edema, which did not worsen during the shift; capillary refill times remained equal to or less than 3 seconds. SION SERGEANT * Note - Amber Ferraro LPN - 05/09/2025 4:29 PM CST This note was copied from a baby's chart. Assessment Referral: [] Self [] Physician [x] Inpatient [] Other SUBJECTIVE- Mother states this is her second baby and she desires to provide breastmilk. Mother states is going good. She states has been receiving supplements. Mother says infant is feeding frequently, no difficulties waking. States nipples are tender with initial latch; denies redness, cracking, or bleeding. Reports breasts feel more full. Mother with health hx significant for headed towards PCOS and delivery. Mother aware ofthe potential risk factor for 'delayed lactogenesis' and/or 'low milk supply' due to her health hx,although staff cannot predict 'if or to what extent' supply may be impacted. Mother denies having any home medications, other than a PNV. Mother denies use of marijuana or illicit street drugs. Mother reports having a personal breast pump for home use. Mother aware of the use, care, and assembly of this pump. Assessed mother for proper flange sizing and found 18 mm to be most appropriate atthis time. OBJECTIVE/ASSESSMENT- Infant with -4% weight loss. Upon entering room, observed to mother's right breast in cradle hold. Mother latched in cross cradle hold. After a couple of attempts, with wide gape and flanged lips, demonstrates sustained and coordinated suckling. Mother denies pain with latch. See assessment flow sheet. Encouraged mother to continue to feed frequently, recommending every 2-3 hours, following infant feeding cues and waking as needed. See feeding plan below. Education completed on normal lactogenesis and feeding patterns/behaviors. Mother verbalized understanding. Discussed breast/nipple care. Discussed engorgement relief interventions and breastmilk storage guidelines, referencing the 'Post and [place] Care'. Mother given a [employer] for , milk storage guidelines information, and Community Resources reference sheet. Educated mother to CDC's recommendations regarding breast pump cleaning and sterilization. Verbal support given and all mother's questions answered. FEEDING PLAN- Mother states understanding of plan: -Instruct to breast feed no less than q2-3h, following infant feeding cues and waking as necessary. -Encouraged mother to pump breasts for 10-20 minutes after any feeding that does not wake for feeding, does not feed well at breast, and/or receives a supplement. And to pump PRN throughout engorgement, to ensure that both breasts soften following each feeding. -Encouraged mother to add in a few extra pumping sessions per day based on her health history. -Offer any EBM obtained to PRN. Supplement further, if medically necessary. -Cleanse pump accessory pieces in warm, soapy water after each use. Recommend sanitizing of pump pieces per CDC recommendations. -To monitor for appropriate wet and dirty diapers. -F/U with criminal court judge, as instructed. -Call my zone phone today with any further questions/ needs (contact number written on dry/erase board in mother's room). -Mother given the [facility] reference sheet, the '[employer] Nutrients for ', and she states that she will call the [facility] with any needs, followingher discharge to home. Infant: Jam Emanuel born 05/08/2027 9:35 AM weighed , 39w6d gestational age at was . her current weight is: Last documented weight: Weight: 3039 g (6 lb 11.2 oz) (05/09/25 0406) and is a change of -4% since . Attending provider: Phill Moss * Patient Active Problem List Diagnosis Code Term delivered by section, current hospitalization Z38.01 vitamin K deficiency P53 Refusal of treatment by parents ( erythromycin eye oint and vit K) Z53.8 Breech presentation O32.1XX0 Mother Maternal Medical History: No past medical history on file. Patient Active Problem List Diagnosis Code Obesity (BMI 35.0-39.9 without comorbidity) E66.9 Breech presentation O32.1XX0 care, subsequent in third trimester Z34.83 Breech O32.1XX0 Maternal Social History: Social History Tobacco Use Smoking Status Never Smokeless Tobacco Never Social History Substance and Sexual Activity Drug Use Never Social History Substance and Sexual Activity Alcohol Use Not Currently Feeding Information: Feeding Method: (05/09/25 1550) Labs: No results found for: BILIDIRECT , BILIINDIRECT , BILITOTAL , BILINEO No results found for: GLUCPOC , [id number] , FLUABPOC , FLUAPOC , FLUBPOC , HCGURPOC , STREPTAPOC , RAPIDSTREP , RHEUMFACTOR 'S ASSESSMENT: Sucking: sustained, coordinated Tongue: CHASIDY Jaundice: see lab values Blood Sugars Obtained: see lab values Urine Output: see /Peds I/O Flowsheet 7-10% weight loss: no Sleepy/refusing to Breast Feed: no Pacifier Use: yes and Instructed on AAP recommendations to discourage pacifier use for the first 2-4 weeks, until is well established. Twins: no Supplement Device: Bottle Supplement Order: parent preference MOTHER'S ASSESSMENT: Breast Surgery: none Description of Incision/ Scar: none Breast/Chest Trauma: none Nipples: everted Assistance: education and support provided, latch-on verified, infant suck/swallowverified, encouraged milk expression/pumping Mother's Care and Comfort: Nipple Care: Lanolin per mother PRN Breast Pump Flange Size: 18 mm Total time spent with patient: 21 minutes Amber Ferraro LPN, IBCLC Registered [employer] Operator SION SERGEANT * Care Plan - Aristides Lao LUCRECIA Lu - 05/09/2025 4:41 AM CST Bri is progressing as expected. Vital signs, fundus, and lochia within normal limits. Patient was able to void after the removal of the romo. Pain controlled with home medications. Patient has been up all night due to wanting to cluster feed and being fussy. All questions answered to patients satisfaction. Shift Summary Romo catheter was removed after 500 mL output, and patient transitioned to independent voiding with initial light red urine that later cleared. Acetaminophen was given for increased lower abdominal pain, and pain remained mild to moderate throughout the shift. support and maternal care interventions were provided, including counselingand encouragement of maternal rest and nutrition. No falls, injuries, or preventable complications were documented, and safety checks were completed with no alarms present. Patient remained stable with no abnormal findings for CS incision or perineum, and wound dressing remained dry and intact throughout the shift. Infection Risk/Actual: Infection prevention, control, or resolution by discharge: No abnormal findings were documented for the CS incision or perineum, and dressing remained dry and intact throughoutthe shift; no changes in temperature or other infection-related observations were noted. Safety/Fall: Absence of fall, injury, harm during hospitalization: No falls or injuries occurred, and safety checks were completed with no alarms present; patient remained independent with activity and no confusion or agitation was observed. Remain free of preventable injury/complications and achieve optimal health throughout , process and period: Romo catheter was removed and patient transitioned to independent voiding with light red urine and mucous threads initially, which later cleared; support and maternal care interventions were provided, and no preventable complications were documented. SION SERGEANT * Care Plan - Delmis Aguilera RN - 05/08/2025 5:48 PM CST Shift Summary Pain in the abdomen region decreased after multiple medication interventions, with patient verbalizing relief and comfort. Prophylactic antibiotics and wound care were provided, with no abnormal findings in wound or urine assessments and temperature remaining low-normal. No falls or injuries occurred, and safety checks were completed throughout the shift with fall riskreassessed and no additional interventions needed. Skin integrity was maintained with dry, intact dressings and minimal, unchanged pedal and pretibialedema. Maternal and well-being were monitored, care provided, and vital signs and labs remained within acceptable ranges for most of the shift. Infection Risk/Actual: Infection prevention, control, or resolution by discharge: No abnormal findings in wound assessments or urine characteristics, and ceFAZolin was administered as a prophylactic antibiotic; temperature remained within a low-normal range and no signs of UTI were identified. Safety/Fall: Absence of fall, injury, harm during hospitalization: No falls occurred and safety checks were completed throughout the shift; fall risk was reassessed and agreed upon, with no additional interventions needed. Remain free of preventable injury/complications and achieve optimal health throughout , process and period: Maternal and well-being were monitored, hydration and nutrition promoted, and interventions such as breast care and perineal hygiene were provided; vital signs and lab results remained within acceptable ranges for the majority of the shift. SION SERGEANT documented in this encounter Plan of Treatment Upcoming Encounters Date Type Department Care Team (Late st Contact Info) Description 05/18/2025 1:20 PM DIVISION SERGEANT Office Visit [facility] [address] [place] [address] Siena Nair, M [address] [place] [address] 05/25/2025 5:00 PM DIVISION SERGEANT Telephone Check Up [facility] [address] [place] [address] Katy Richey GROCERY CLERK CHECKING-CNM [address] [place] [id number] 06/18/2025 3:20 PM DIVISION SERGEANT Office Visit [facility] [address] [place] [address] Luiza Martinez, CNM [address] [place] [address] documented as of this encounter Procedures Procedure Name Priority Date/Time Associated Diagnosis Comments CBC WITH DIFFERENTIAL Routine 05/09/2025 5:44 AM DIVISION SERGEANT CA DELIVERY ONLY 05/08/2025 9:00 AM DIVISION SERGEANT HOSP, Primary, Breech, EDC 05/09/25, VERIFICATION BLOOD GROUP Stat 05/08/2025 8:16 AM DIVISION SERGEANT EXTRA TUBE (GREEN) Routine 05/08/2025 8: 02 AM DIVISION SERGEANT EXTRA TUBE Routine 05/08/2025 8:02 AM DIVISION SERGEANT BASIC METABOLIC PANEL Routine 05/08/2025 8:02 AM DIVISION SERGEANT SYPHILIS SEROLOGY W/REFLEX Routine 05/08/2025 7:58 AM DIVISION SERGEANT CBC WITHOUT DIFFERENTIAL Routine 05/08/2025 7:58 AM DIVISION SERGEANT TYPE AND SCREEN Routine 05/08/2025 7:58 AM DIVISION SERGEANT EXTRA TUBE Routine 05/08/2025 7:18 AM DIVISION SERGEANT EXTRA TUBE (URINE CONTAINER) Routine 05/08/2025 7:18 AM DIVISION SERGEANT EXTRA TUBE (URINE CONTAINER) Routine 05/08/2025 7:18 AM DIVISION SERGEANT documented in this encounter Results * (ABNORMAL) CBC WITH DIFFERENTIAL (05/09/2025 5:44 AM DIVISION SERGEANT) [facility] WBC 10.5 4.5 - 11.0 K/uL 05/09/2025 6:17 AM [facility] RBC 3.65(L) 4.20 - 5.40 M/uL 05/09/2025 6:17 AM [facility] HEMOGLOBIN 10.9(L) 12.0 - 16.0 g/dL 05/09/2025 6:17 AM [facility] HEMATOCRIT 32.8(L) 36.0 - 46.0 % 05/09/2025 6:17 AM [facility] MCV 89.9 84.0 - 103.0 fL 05/09/2025 6:17 AM [facility] MCH 29.9 27.0 - 34.0 pg 05/09/2025 6:17 AM [facility] MCHC 33.2 30.0 - 35.0 g/dL 05/09/2025 6:17 AM [facility] PLATELETS 163 140 - 440 K/uL 05/09/2025 6:17 AM [facility] MPV 11.3 8.9 - 12.8 fL 05/09/2025 6:17 AM [facility] RDW 13.3 11.0 - 14.5 % 05/09/2025 6:17 AM [facility] RDW-STDEV 43.7 37.0 - 54.0 fL 05/09/2025 6:17 AM [facility] NEUTROPHILS 77(H) 42 - 75 % 05/09/2025 6:17 AM [facility] LYMPHOCYTES 13(L) 24 - 44 % 05/09/2025 6:17 AM [facility] MONOCYTES 8 2 - 10 % 05/09/2025 6:17 AM [facility] EOSINOPHILS 1 0 - 7 % 05/09/2025 6:17 AM [facility] BASOPHILS 1 0 - 1 % 05/09/2025 6:17 AM [facility] IMMATURE GRANULOCYTES 1 0 - 2 % 05/09/2025 6:17 AM [facility] NEUTROPHIL ABSOLUTE 8.06(H) 2.00 - 8.00 K/uL 05/09/2025 6:17 AM [facility] LYMPHOCYTE ABSOLUTE 1.38 1.20 - 4.00 K/uL 05/09/2025 6:17 AM [facility] MONOCYTE ABSOLUTE 0.88(H) 0.10 - 0.60 K/uL 05/09/2025 6:17 AM [facility] EOSINOPHIL ABSOLUTE 0.09 0.00 - 0.70 K/uL 05/09/2025 6:17 AM [facility] BASOPHILS ABSOLUTE 0.05 0.00 - 0.20 K/uL 05/09/2025 6:17 AM [facility] IMMATURE GRANULOCYTES ABSOLUTE 0.05 0.00 - 0.10 K/uL 05/09/2025 6:17 AM [facility] SMEAR REVIEWED: NA - Not Applicable 05/09/2025 6:17 AM [facility] Blood Venipuncture / Unknown 05/09/2025 5:44 AM DIVISION SERGEANT 05/09/2025 6:10 AM [facility] us Lulu Denton MD HEMATOLOGY ORDERABLES Final R esult [facility] CLIA # [id number] [address] [place] [id number] * VERIFICATION BLOOD GROUP (05/08/2025 8:16 AM DIVISION SERGEANT) ABO GROUP O 05/08/2025 8:36 AM [facility] RH (D) TYPE Positive 05/08/2025 8:36 AM [facility] Blood Venipuncture / Unknown 05/08/2025 8:16 AM DIVISION SERGEANT 05/08/2025 8:19 AM DIVISION SERGEANT Lulu Denton MD BLOOD BANK ORDERABLES Final R esult [facility] CLIA#[id number] [address] [place] [address], [place] [phone] * (ABNORMAL) BASIC METABOLIC PANEL (05/08/2025 8:02 AM DIVISION SERGEANT) SODIUM 140 136 - 145 mmol/L 05/08/2025 2:07 PM [facility] POTASSIUM 3.8 3.5 - 5.1 mmol/L 05/08/2025 2:07 PM [facility] CHLORIDE 105 98 - 107 mmol/L 05/08/2025 2:07 PM [facility] CO2 17(L) 22 - 29 mmol/L 05/08/2025 2:07 PM [facility] CALCIUM 9.0 8.6 - 10.0 mg/dL 05/08/2025 2:07 PM [facility] BUN 7 6 - 20 mg/dL 05/08/2025 2:07 PM [facility] CREATININE 0.55 0.51 - 0.95 mg/dL 05/08/2025 2:07 PM [facility] GLUCOSE 92 74 - 99 mg/dL 05/08/2025 2:07 PM [facility] GFR >60 >=60 mL/min/1.7 3 sq meter 05/08/2025 2:07 PM [facility] Comment:eGFR calculated with 2020 CKD-EPI equation. Vegetarian diet, extremely high or low muscle mass, and may affect results. Cystatin C with Glomerular Filtration Rate is a suitable alternative for these patients. ANION GAP 18 9 - 20 mmol/L 05/08/2025 2:07 PM [facility] Blood Venipuncture / Unknown 05/08/2025 8:02 AM DIVISION SERGEANT 05/08/2025 8:07 AM DIVISION SERGEANT us Codie Cali MD CHEMISTRY ORDERABLES Fi nal Result Performing Organization Address [facility]/ZIP Co de Phone Number [facility] CLIA # [id number] [address] [place] [address] * EXTRA TUBE (GREEN) (05/08/2025 8:02 AM DIVISION SERGEANT) Blood Venipuncture / Unknown 05/08/2025 8:02 AM DIVISION SERGEANT 05/08/2025 8:07 AM DIVISION SERGEANT us Lulu Denton MD CHEMISTRY ORDERABLES Final Re sult Performing Organization Address [facility] Co de Phone Number [facility] CLIA # [id number] [address] [place] [address] * SYPHILIS SEROLOGY W/REFLEX (05/08/2025 7:58 AM DIVISION SERGEANT) Pathologist [facility] SYPHILIS ANTIBODY TOTAL Non-reacti ve Non-react paras 05/08/2025 10:06 AM DIVISION SERGEANT [facility] Blood BLOOD SPECIMEN / Unknown Venipuncture / Unknown 05/08/2025 7:58 AM DIVISION SERGEANT 05/08/2025 8:07 AM DIVISION SERGEANT us Lulu Denton MD CHEMISTRY ORDERABLES Final Re sult Performing Organization Address [facility]/ZIP Co de Phone Number [facility] CLIA # [id number] [id number] [place] [address] * CBC WITHOUT DIFFERENTIAL (05/08/2025 7:58 AM DIVISION SERGEANT) Pathologist [facility] WBC 10.2 4.5 - 11.0 K/uL 05/08/2025 8:12 AM DIVISION SERGEANT [facility] RBC 4.45 4.20 - 5.40 M/uL 05/08/2025 8:12 AM [facility] HEMOGLOBIN 13.2 12.0 - 16.0 g/dL 05/08/2025 8:12 AM [facility] HEMATOCRIT 39.5 36.0 - 46.0 % 05/08/2025 8:12 AM [facility] MCV 88.8 84.0 - 103.0 fL 05/08/2025 8:12 AM [facility] MCH 29.7 27.0 - 34.0 pg 05/08/2025 8:12 AM [facility] MCHC 33.4 30.0 - 35.0 g/dL 05/08/2025 8:12 AM [facility] PLATELETS 170 140 - 440 K/uL 05/08/2025 8:12 AM [facility] MPV 11.2 8.9 - 12.8 fL 05/08/2025 8:12 AM [facility] RDW 13.2 11.0 - 14.5 % 05/08/2025 8:12 AM [facility] RDW-STDEV 42.9 37.0 - 54.0 fL 05/08/2025 8:12 AM [facility] Blood Venipuncture / Unknown 05/08/2025 7:58 AM DIVISION SERGEANT 05/08/2025 8:07 AM [facility] us Lulu Denton MD HEMATOLOGY ORDERABLES Final R esult [facility] CLIA # [id number] [address] [place] [address] [place] [address] * TYPE AND SCREEN (05/08/2025 7:58 AM DIVISION SERGEANT) ABO GROUP O 05/08/2025 8:53 AM [facility] RH (D) TYPE Positive 05/08/2025 8:53 AM [facility] ANTIBODY SCREEN Negative 05/08/2025 8:53 AM DIVISION SERGEANT [facility] [place] [facility] Blood Venipuncture / Unknown 05/08/2025 7:58 AM DIVISION SERGEANT 05/08/2025 8:07 AM DIVISION SERGEANT Lulu Denton MD BLOOD BANK ORDERABLES Edited Result - Final Performing Organization Address [facility] Co de Phone Number [facility] [employer] [facility] CLIA#[id number] [address] [place] [address], * EXTRA TUBE (URINE CONTAINER) (05/08/2025 7:18 AM DIVISION SERGEANT) Urine URINE SPECIMEN OBTAINED BY CLEAN CATCH PROCEDURE / Unknown Collection / Unknown 05/08/2025 7:18 AM DIVISION SERGEANT 05/08/2025 7:29 AM DIVISION SERGEANT Lulu Denton MD URINE ORDERABLES Final Result Performing Organization Address [facility] de Phone Number [facility] CLIA # [id number] [address] [place] [address] * EXTRA TUBE (URINE CONTAINER) (05/08/2025 7:18 AM DIVISION SERGEANT) Urine URINE SPECIMEN OBTAINED BY CLEAN CATCH PROCEDURE / Unknown Collection / Unknown 05/08/2025 7:18 AM DIVISION SERGEANT 05/08/2025 7:29 AM DIVISION SERGEANT Lulu Denton MD URINE ORDERABLES Final Result Performing Organization Address [facility] de Phone Number [facility] [employer] [facility] CLIA # [id number] [address] [place] [address] documented in this encounter Visit Diagnoses Diagnosis S/P section- Primary Other postprocedural status Breech presentation, single or unspecified fetus S/P section Other postprocedural status Breech Breech presentation without mention of version, unspecified as to episode of care Obesity (BMI 35.0-39.9 without comorbidity) Obesity, unspecified documented in this encounter Administered Medications Inactive Administered Medications - up to 3 most recent administrations Medication Order MAR Action Action Date Dose Rate Site acetaminophen (TYLENOL) tablet 1,000 mg 1,000 mg, Oral, EVERY 6 HOURS, First dose (after last modification) on Sun05/08/25 at 1545, Until Discontinued, Routine, Post-op - Floor Given 05/08/2025 3:45 PM DIVISION SERGEANT 1,000 mg acetaminophen (TYLENOL) tablet 1,000 mg 1,000 mg, Oral, EVERY 8 HOURS, First dose (after last modification) on [facility] 05/09/25 at 0500, Until Discontinued, Routine, Post-op - Floor Given 05/10/2025 8:28 AM DIVISION SERGEANT 1,000 mg Given 05/10/2025 1:49 AM DIVISION SERGEANT 1,000 mg Given 05/09/2025 4:57 PM DIVISION SERGEANT 1,000 mg carboprost tromethamine (HEMABATE) 250 mcg/mL injection 1 mL 1 mL (250 mcg), IM, EVERY 15 MINUTES PRN, 8 doses, Starting on Sun05/08/25 at 0715, Until Sun05/10/25 at 1431, Other (See Comment), for excessive bleeding in the period as needed after consultation with resident or attending physician - Maximum of 8 doses, Routine, Post-op - Floor dextrose 5 % in water 250 mL flush bag 25 mL 25 mL, IV, SEE ADMIN INSTRUCTIONS, Starting on Sun05/08/25 at 1350, Until Sun05/10/25 at 1431, Routine, Post-op - Floor enoxaparin (LOVENOX) injection 40 mg 40 mg, subCUT, EVERY 24 HOURS, First dose on [facility] 05/09/25 at 0900, Until Discontinued, Routine, Indication: Prophylaxis of VTE (trauma) Given 05/09/2025 9:12 AM DIVISION SERGEANT 40 mg Abdomen, Right Upper Quadrant ibuprofen (MOTRIN) tablet 600 mg 600 mg, Oral, EVERY 6 HOURS, First dose on Sun05/08/25 at 2200, Until Discontinued, Routine, Post-op - Floor Given 05/10/2025 6:02 AM DIVISION SERGEANT 600 mg Given 05/09/2025 11:09 PM DIVISION SERGEANT 600 mg Given 05/09/2025 4:57 PM DIVISION SERGEANT 600 mg lactated ringers infusion IV, at 125 mL/hr, PRE-PROCEDURE CONTINUOUS, Starting on Sun05/08/25 at 0730, Until 05/08/25 at 1305, Routine, Pre-op Continue from Pre-Op 05/08/2025 8:47 AM DIVISION SERGEANT 1 25 mL/hr New Bag 05/08/2025 8:04 AM DIVISION SERGEANT 125 mL/hr magnesium HYDROXIDE (MILK OF MAGNESIA) oral suspension 30 mL 30 mL, Oral, NIGHTLY PRN, Starting on Sun05/08/25 at 1350, Until 05/10/25 at 1431, Constipation, Routine, Post-op - Floor methylergonovine maleate (METHERGINE) 0.2 mg/mL (1 mL) injection 0.2 mg 0.2 mg, IM, EVERY 2 HOURS PRN, 2 doses, Starting on Sun05/08/25 at 0715, Until 05/10/25 at 1431, Other (See Comment), for excessive bleeding in the period as needed after consultation with resident or attending physician - Maximum of 2 doses, Routine, Post-op - Floor Given 05/08/2025 12:18 PM [facility] 0.2 mg Thigh, Left miSOPROStol (CYTOTEC) tablet 800 mcg 800 mcg, Oral, ONE TIME PRN, 1 dose, Starting on Sun05/08/25 at 0715, Until 05/10/25 at 1431, Other (See Comment), excessive bleeding in the period, Routine, Post-op - Floor miSOPROStol (CYTOTEC) tablet 800 mcg 800 mcg, Sublingual, ONE TIME PRN, 1 dose, Starting on Sun05/08/25 at 0715, Until 05/10/25 at 1431, Other (See Comment), excessive bleeding in the period, Routine, Post-op - Floor miSOPROStol (CYTOTEC) tablet 800 mcg 800 mcg, Rectal, ONE TIME PRN, 1 dose, Starting on Sun05/08/25 at 0715, Until 05/10/25 at 1431, Other (See Comment), excessive bleeding in the period, Routine, Post-op - Floor modified lanolin (LANOLIN HFA) 100 % topical cream Topical, SEE ADMIN INSTRUCTIONS, Starting on Sun05/08/25 at 1350, Until 05/10/25 at 1431, Routine, Post-op - Floor naloxone (NARCAN) 0.4 mg/mL injection 0.1-0.4 mg 0.1-0.4 mg, IV, SEE ADMIN INSTRUCTIONS, Starting on Sun05/08/25 at 1533, Until 05/10/25 at 1431, Routine, Post-op - Floor naloxone (NARCAN) 0.4 mg/mL injection 0.1-0.4 mg 0.1-0.4 mg, IV, SEE ADMIN INSTRUCTIONS, Starting on Sun05/08/25 at 1350, Until 05/10/25 at 1431, Routine, Post-op - Floor naloxone (NARCAN) 0.4 mg/mL injection 0.1-0.4 mg 0.1-0.4 mg, IV, SEE ADMIN INSTRUCTIONS, Starting on Sun05/08/25 at 0956, Until 05/10/25 at 1431, Routine ondansetron (ZOFRAN ODT) tablet 4 mg 4 mg, Oral, EVERY 6 HOURS PRN, Starting on 05/09/25 at 1350, Until 05/10/25 at 1431, Nausea/Emesis, Routine, Post-op - Floor ondansetron (ZOFRAN) 4 mg/2 mL injection 4 mg 4 mg, IV, EVERY 6 HOURS PRN, Starting on 05/09/25 at 1350, Until 05/10/25 at 1431, Nausea/Emesis, Routine, Post-op - Floor oxytocin (PITOCIN) 10 unit/mL injection 10 Units 10 Units, IM, ONE TIME PRN, 1 dose, Starting on Sun05/08/25 at 1350, Until 05/10/25 at 1431, Other (See Comment), excessive bleeding in the period if IV route not available, Routine, Post-op - Floor oxytocin (PITOCIN) 30 units in 0.9% sodium chloride 500 mL infusion 3.6-18 Units/hr (60-300 mL/hr), IV, SEE ADMIN INSTRUCTIONS, Starting on Sun05/08/25 at 0713, Until 05/10/25 at 1431, Initial infusion rate/duration? 18 units/hr = 300 mL/hr for 1 hour, Subsequent infusion rate/duration? 3.6 units/hr = 60 mL/hr for 3 hours then stop Rate Verify 05/08/2025 12:57 PM [facility] 3.6 Units/hr 60 mL/hr New Bag 05/08/2025 12:29 PM [facility] 3.6 Units/hr 60 mL/hr Rate Change 05/08/2025 10:48 AM [facility] [employer] 3.6 Units/hr 60 mL/hr oxytocin (PITOCIN) 30 units in 0.9% sodium chloride 500 mL infusion 3.6-18 Units/hr (60-300 mL/hr), IV, SEE ADMIN INSTRUCTIONS, Starting on Sun05/08/25 at 1350, Until 05/10/25 at 1431, Post-op - Floor, Initial infusion rate/duration? 18 units/hr = 300 mL/hr for 1 hour, Subsequent infusion rate/duration? 3.6 units/hr = 60 mL/hr for 3 hours then stop oxytocin (PITOCIN) BOLUS from infusion 3 Units 3 Units, IV, ONE TIME PRN, 1 dose, Starting on Sun05/08/25 at 0713, Until 05/10/25 at 1431, Other (See Comment), see admin instructions, Routine oxytocin (PITOCIN) BOLUS from infusion 3 Units 3 Units, IV, SEE ADMIN INSTRUCTIONS, 1 dose, Starting on Sun05/08/25 at 1350, Until 05/10/25 at 1431, Routine, Post-op - Floor oxytocin (PITOCIN) BOLUS from infusion 3 Units 3 Units, IV, ONE TIME PRN, 1 dose, Starting on Sun05/08/25 at 1350, Until 05/10/25 at 1431, Other (See Comment), see admin instructions, Routine, Post-op - Floor vit-iron fumarate-fa () 28 mg iron- 800 mcg per tablet 1 Tablet 1 Tablet, Oral, DAILY, First dose on Sun05/08/25 at 1400, Until Discontinued, Routine, Post-op - Floor prochlorperazine maleate (COMPAZINE) tablet 10 mg 10 mg, Oral, EVERY 6 HOURS PRN, Starting on Sun05/09/25 at 1350, Until 05/10/25 at 1431, Nausea/Emesis, Routine, Post-op - Floor sennosides-docusate sodium (SENNA-S) 8.6-50 mg per tablet 1 Tablet 1 Tablet, Oral, DAILY AT BEDTIME, First dose on Sun05/08/25 at 2100, Until Discontinued, Routine, Post-op - Floor simethicone chewable tablet 80 mg 80 mg, Oral, EVERY 6 HOURS PRN, Starting on Sun05/08/25 at 1350, Until 05/10/25 at 1431, Gas, Routine, Post-op - Floor sodium chloride 0.9 % flush bag 25 mL 25 mL, IV, SEE ADMIN INSTRUCTIONS, Starting on Sun05/08/25 at 1350, Until 05/10/25 at 1431, Routine, Post-op - Floor sodium chloride flush injection 10 mL 10 mL, IV, EVERY 12 HOURS (BID), First dose on Sun05/08/25 at 1400, Until Discontinued, Routine, Post-op - Floor Given 05/08/2025 9:00 PM [facility] 10 mL sodium chloride flush injection 10 mL 10 mL, IV, SEE ADMIN INSTRUCTIONS, Starting on Sun05/08/25 at 1350, Until 05/10/25 at 1431, Routine, Post-op - Floor tranexamic acid (CYKLOKAPRON) 1,000 mg in sodium chloride (iso-osmotic) 100 mL IVPB 1,000 mg, IV, ONE TIME PRN, 1 dose, Starting on Sun05/08/25 at 0715, Until 05/10/25 at 1431, Other (See Comment), for excessive bleeding in the period after consultation with resident or attending physician, Routine, Post-op - Floor documented in this encounter Active and Recently Administered Medications Times are shown in [facility]. Scheduled Medication Order 05/08/2025 05/09/2025 05/10/2025 acetaminophen (TYLENOL) tablet 1,000 mg (CANCELED) 1,000 mg, Oral, EVERY 6 HOURS, First dose (after last modification) on Sun05/08/25 at 1545, Until Discontinued, Routine, Post-op - Floor 1545 (Given - Provider: Delmis Aguilera RN) acetaminophen (TYLENOL) tablet 1,000 mg 1,000 mg, Oral, EVERY 8 HOURS, First dose (after last modification) on Sun05/09/25 at 0500, Until Discontinued, Routine, Post-op - Floor 2356 (Given - Provider: LUCRECIA Lucia) 0912 (Given - Provider: Delmis Aguilera, ELIZABETH)1657 (Given - Provider: Delmis Aguilera RN)2100 (Not Given - Provider: LUCRECIA Lucia - Reason: Other - See Comment - Comment: can not have until 0100) 0149 (Given - Provider: LUCRECIA Lucia)0828 (Given - Provider: Delmis Aguilera RN)1000 (Canceled Entry - Provider: Delmis Aguilera RN) ceFAZolin (ANCEF,KEFZOL) 3,000 mg in sodium chloride 0.9 % 115 mL IVPB (COMPLETED) 3,000 mg, IV, PRE-PROCEDURE ONCE, 1 dose, Starting on Sun05/08/25 at 0715, Until Sun05/08/25 at 0927, Routine, Pre-op, Antibiotic Indication: Surgical prophylaxis 09 (New Bag - Provider: Mar Bautista CRNA)0927 (Stopped - Provider: Mar Bautista CRNA) dextrose 5 % in water 250 mL flush bag 25 mL 25 mL, IV, SEE ADMIN INSTRUCTIONS, Starting on Sun05/08/25 at 1350, Until Sun05/10/25 at 1431, Routine, Post-op - Floor enoxaparin (LOVENOX) injection 40 mg 40 mg, subCUT, EVERY 24 HOURS, First dose on Sun05/09/25 at 0900, Until Discontinued, Routine, Indication: Prophylaxis of VTE (trauma) 0912 (Given - Provider: Delmis Aguilera RN) 0900 (Refused - Provider: Delmis Aguilera RN) ibuprofen (MOTRIN) tablet 600 mg 600 mg, Oral, EVERY 6 HOURS, First dose on Sun05/08/25 at 2200, Until Discontinued, Routine, Post-op - Floor 1545 (Given - Provider: Delmis Aguilera RN)2137 (Given - Provider: LUCRECIA Lucia) 0402 (Given - Provider: LUCRECIA Lucia)1116 (Given - Provider: Delmis Aguilera RN)1657 (Given - Provider: Delmis Aguilera RN)2309 (Given - Provider: LUCRECIA Lucia) 0602 (Given - Provider: LUCRECIA Lucia)1000 (Due - Provider: Carter Campoverde, PHARMACIST) modified lanolin (LANOLIN HFA) 100 % topical cream Topical, SEE ADMIN INSTRUCTIONS, Starting on Sun05/08/25 at 1350, Until 05/10/25 at 1431, Routine, Post-op - Floor naloxone (NARCAN) 0.4 mg/mL injection 0.1-0.4 mg 0.1-0.4 mg, IV, SEE ADMIN INSTRUCTIONS, Starting on Sun05/08/25 at 1533, Until 05/10/25 at 1431, Routine, Post-op - Floor naloxone (NARCAN) 0.4 mg/mL injection 0.1-0.4 mg 0.1-0.4 mg, IV, SEE ADMIN INSTRUCTIONS, Starting on Sun05/08/25 at 1350, Until 05/10/25 at 1431, Routine, Post-op - Floor naloxone (NARCAN) 0.4 mg/mL injection 0.1-0.4 mg 0.1-0.4 mg, IV, SEE ADMIN INSTRUCTIONS, Starting on Sun05/08/25 at 0956, Until 05/10/25 at 1431, Routine oxytocin (PITOCIN) 30 units in 0.9% sodium chloride 500 mL infusion(Linked Group 1) 3.6-18 Units/hr (60-300 mL/hr), IV, SEE ADMIN INSTRUCTIONS, Starting on Sun05/08/25 at 0713, Until 05/10/25 at 1431, Initial infusion rate/duration? 18 units/hr = 300 mL/hr for 1 hour, Subsequent infusion rate/duration? 3.6 units/hr = 60 mL/hr for 3 hours then stop 0940 (New Bag - Provider: Mar Bautista CRNA)1017 ([place] - Provider: Maritza Olivera RN)1048 (Rate Change - Provider: Maritza Olivera, RN)1229 (New Bag - Provider: Maritza Olivera, RN)1257 (Rate Verify - Provider: Maritza Olivera RN) oxytocin (PITOCIN) 30 units in 0.9% sodium chloride 500 mL infusion(Linked Group 2) 3.6-18 Units/hr (60-300 mL/hr), IV, SEE ADMIN INSTRUCTIONS, Starting on Sun05/08/25 at 1350, Until 05/10/25 at 1431, Post-op - Floor, Initial infusion rate/duration? 18 units/hr = 300 mL/hr for 1 hour, Subsequent infusion rate/duration? 3.6 units/hr = 60 mL/hr for 3 hours then stop oxytocin (PITOCIN) BOLUS from infusion 3 Units (COMPLETED)(Linked Group 1) 3 Units, IV, SEE ADMIN INSTRUCTIONS, 1 dose, Starting on Sun05/08/25 at 0713, Until Sun05/08/25 at 0936, Routine 0936 (New Bag - Provider: Mar Bautista CRNA) oxytocin (PITOCIN) BOLUS from infusion 3 Units(Linked Group 2) 3 Units, IV, SEE ADMIN INSTRUCTIONS, 1 dose, Starting on Sun05/08/25 at 1350, Until 05/10/25 at 1431, Routine, Post-op - Floor vit-iron fumarate-fa () 28 mg iron- 800 mcg per tablet 1 Tablet 1 Tablet, Oral, DAILY, First dose on Sun05/08/25 at 1400, Until Discontinued, Routine, Post-op - Floor 1400 (Due) 0900 (Refused - Provider: Delmis Aguilera RN - Comment: Wants to take her own she brought) 0900 (Refused - Provider: Delmis Aguilera RN) sennosides-docusate sodium (SENNA-S) 8.6-50 mg per tablet 1 Tablet 1 Tablet, Oral, DAILY AT BEDTIME, First dose on Sun05/08/25 at 2100, Until Discontinued, Routine, Post-op - Floor 2100 (Refused - Provider: LUCRECIA Lucia) 2100 (Refused - Provider: LUCRECIA Lucia) sodium chloride 0.9 % flush bag 25 mL 25 mL, IV, SEE ADMIN INSTRUCTIONS, Starting on Sun05/08/25 at 1350, Until 05/10/25 at 1431, Routine, Post-op - Floor sodium chloride flush injection 10 mL 10 mL, IV, EVERY 12 HOURS (BID), First dose on Sun05/08/25 at 1400, Until Discontinued, Routine, Post-op - Floor 1400 (Due)2100 (Given - Provider: LUCRECIA Lucia - Comment: flushed) 0900 (Canceled Entry - Provider: Delmis Aguilera RN - Comment: IP removed)2100 (Not Given - Provider: LUCRECIA Lucia - Reason: Route not available) 0900 (Canceled Entry - Provider: Delmis Aguilera RN - Comment: No IP) sodium chloride flush injection 10 mL 10 mL, IV, SEE ADMIN INSTRUCTIONS, Starting on Sun05/08/25 at 1350, Until Sun05/10/25 at 1431, Routine, Post-op - Floor Continuous Medication Order 05/08/2025 05/09/2025 05/10/2025 lactated ringers infusion (CANCELED) IV, at 125 mL/hr, PRE-PROCEDURE CONTINUOUS, Starting on Sun05/08/25 at 0730, Until Sun05/08/25 at 1305, Routine, Pre-op 0804 (New Bag - Provider: Maritza Olivera RN)0847 (Continue from Pre-Op - Provider: Mar Bautista CRNA)0934 (Fluid Volume - Provider: Mar Bautista CRNA)1014 (Fluid Volume - Provider: Mar Bautista CRNA)1015 (Stopped - Provider: Maritza Olivera RN) PRN Medication Order 05/08/2025 05/09/2025 05/10/2025 carboprost tromethamine (HEMABATE) 250 mcg/mL injection 1 mL 1 mL (250 mcg), IM, EVERY 15 MINUTES PRN, 8 doses, Starting on Sun05/08/25 at 0715, Until Sun05/10/25 at 1431, Other (See Comment), for excessive bleeding in the period as needed after consultation with resident or attending physician - Maximum of 8 doses, Routine, Post-op - Floor magnesium HYDROXIDE (MILK OF MAGNESIA) oral suspension 30 mL 30 mL, Oral, NIGHTLY PRN, Starting on Sun05/08/25 at 1350, Until 05/10/25 at 1431, Constipation, Routine, Post-op - Floor methylergonovine maleate (METHERGINE) 0.2 mg/mL (1 mL) injection 0.2 mg 0.2 mg, IM, EVERY 2 HOURS PRN, 2 doses, Starting on Sun05/08/25 at 0715, Until 05/10/25 at 1431, Other (See Comment), for excessive bleeding in the period as needed after consultation with resident or attending physician - Maximum of 2 doses, Routine, Post-op - Floor 1218 (Given - Provider: Maritza Hill, RN)1434 (Due) miSOPROStol (CYTOTEC) tablet 800 mcg(Linked Group 3) 800 mcg, Oral, ONE TIME PRN, 1 dose, Starting on Sun05/08/25 at 0715, Until 05/10/25 at 1431, Other (See Comment), excessive bleeding in the period, Routine, Post-op - Floor miSOPROStol (CYTOTEC) tablet 800 mcg(Linked Group 3) 800 mcg, Sublingual, ONE TIME PRN, 1 dose, Starting on Sun05/08/25 at 0715, Until 05/10/25 at 1431, Other (See Comment), excessive bleeding in the period, Routine, Post-op - Floor miSOPROStol (CYTOTEC) tablet 800 mcg(Linked Group 3) 800 mcg, Rectal, ONE TIME PRN, 1 dose, Starting on Sun05/08/25 at 0715, Until 05/10/25 at 1431, Other (See Comment), excessive bleeding in the period, Routine, Post-op - Floor ondansetron (ZOFRAN ODT) tablet 4 mg 4 mg, Oral, EVERY 6 HOURS PRN, Starting on 05/09/25 at 1350, Until 05/10/25 at 1431, Nausea/Emesis, Routine, Post-op - Floor ondansetron (ZOFRAN) 4 mg/2 mL injection 4 mg 4 mg, IV, EVERY 6 HOURS PRN, Starting on 05/09/25 at 1350, Until 05/10/25 at 1431, Nausea/Emesis, Routine, Post-op - Floor oxytocin (PITOCIN) 10 unit/mL injection 10 Units 10 Units, IM, ONE TIME PRN, 1 dose, Starting on Sun05/08/25 at 1350, Until 05/10/25 at 1431, Other (See Comment), excessive bleeding in the period if IV route not available, Routine, Post-op - Floor oxytocin (PITOCIN) BOLUS from infusion 3 Units(Linked Group 1) 3 Units, IV, ONE TIME PRN, 1 dose, Starting on Sun05/08/25 at 0713, Until 05/10/25 at 1431, Other (See Comment), see admin instructions, Routine oxytocin (PITOCIN) BOLUS from infusion 3 Units(Linked Group 2) 3 Units, IV, ONE TIME PRN, 1 dose, Starting on Sun05/08/25 at 1350, Until 05/10/25 at 1431, Other (See Comment), see admin instructions, Routine, Post-op - Floor prochlorperazine maleate (COMPAZINE) tablet 10 mg 10 mg, Oral, EVERY 6 HOURS PRN, Starting on 05/09/25 at 1350, Until 05/10/25 at 1431, Nausea/Emesis, Routine, Post-op - Floor simethicone chewable tablet 80 mg 80 mg, Oral, EVERY 6 HOURS PRN, Starting on Sun05/08/25 at 1350, Until 05/10/25 at 1431, Gas, Routine, Post-op - Floor tranexamic acid (CYKLOKAPRON) 1,000 mg in sodium chloride (iso-osmotic) 100 mL IVPB 1,000 mg, IV, ONE TIME PRN, 1 dose, Starting on Sun05/08/25 at 0715, Until 05/10/25 at 1431, Other (See Comment), for excessive bleeding in the period after consultation with resident or attending physician, Routine, Post-op - Floor Linked Groups Order Group 1: oxytocin (PITOCIN) 30 units in 0.9% sodium chloride 500 mL infusionJump to med 3.6-18 Units/hr (60-300 mL/hr), IV, SEE ADMIN INSTRUCTIONS, Starting on Sun05/08/25 at 0713, Until 05/10/25 at 1431, Initial infusion rate/duration? 18 units/hr = 300 mL/hr for 1 hour, Subsequent infusion rate/duration? 3.6 units/hr = 60 mL/hr for 3 hours then stop And oxytocin (PITOCIN) BOLUS from infusion 3 Units (COMPLETED)Jump to med 3 Units, IV, SEE ADMIN INSTRUCTIONS, 1 dose, Starting on Sun05/08/25 at 0713, Until Sun05/08/25 at 0936, Routine And oxytocin (PITOCIN) BOLUS from infusion 3 UnitsJump to med 3 Units, IV, ONE TIME PRN, 1 dose, Starting on Sun05/08/25 at 0713, Until 05/10/25 at 1431, Other (See Comment), see admin instructions, Routine And Parameters for Discontinuing Oxytocin (Pitocin) Before 4 Hours (CANCELED) Routine, ONE TIME, On Sun05/08/25 at 0715, For 1 occurrence, Oxytocin (PITOCIN) 30 units infusion may be discontinued PRIOR to 4 hours if: patient has received a minimum of 21 units of oxytocin AND bleeding is currently stable (adequate tone, no active or abnormal blood loss (less than 500 mL for vaginal ), updated hemorrhage risk: low, and vital signs within normal limits) Group 2: oxytocin (PITOCIN) 30 units in 0.9% sodium chloride 500 mL infusionJump to med 3.6-18 Units/hr (60-300 mL/hr), IV, SEE ADMIN INSTRUCTIONS, Starting on Sun05/08/25 at 1350, Until Sun05/10/25 at 1431, Post-op - Floor, Initial infusion rate/duration? 18 units/hr = 300 mL/hr for 1 hour, Subsequent infusion rate/duration? 3.6 units/hr = 60 mL/hr for 3 hours then stop And oxytocin (PITOCIN) BOLUS from infusion 3 UnitsJump to med 3 Units, IV, SEE ADMIN INSTRUCTIONS, 1 dose, Starting on Sun05/08/25 at 1350, Until Sun05/10/25 at 1431, Routine, Post-op - Floor And oxytocin (PITOCIN) BOLUS from infusion 3 UnitsJump to med 3 Units, IV, ONE TIME PRN, 1 dose, Starting on Sun05/08/25 at 1350, Until Sun05/10/25 at 1431, Other (See Comment), see admin instructions, Routine, Post-op - Floor Group 3: miSOPROStol (CYTOTEC) tablet 800 mcgJump to med 800 mcg, Oral, ONE TIME PRN, 1 dose, Starting on Sun05/08/25 at 0715, Until Sun05/10/25 at 1431, Other (See Comment), excessive bleeding in the period, Routine, Post-op - Floor Or miSOPROStol (CYTOTEC) tablet 800 mcgJump to med 800 mcg, Sublingual, ONE TIME PRN, 1 dose, Starting on Sun05/08/25 at 0715, Until Sun05/10/25 at 1431, Other (See Comment), excessive bleeding in the period, Routine, Post-op - Floor Or miSOPROStol (CYTOTEC) tablet 800 mcgJump to med 800 mcg, Rectal, ONE TIME PRN, 1 dose, Starting on 05/08/25 at 0715, Until 05/10/25 at 1431, Other (See Comment), excessive bleeding in the period, Routine, Post-op - Floor documented in this encounter
--- OUTSIDE RECORDS SUMMARY | 2025-05-08 08:47 | XMS_ITS | Encounter Summary ---
Author Organization [facility] Address [address] [place] [address] Care Team Providers Care Ground Crewman Aircraft Support Name Role Phone Unavailable Primary Care Provider Unavailabl e Reason for Visit * Auth/Cert (Routine) Specialty Diagnoses / Procedures Referred By Aidan t Referred To Contact Obstetrics Codie Cali MD [address] [address] Phone: tel: fax: [facility] Labor and Delivery [address] [place] [address] Phone: tel: fax: Referral ID Status Reason Start Date Expiration Date Visits Re quested Visits Authorized [id number] 1 1 Encounter Details Date Type Department Care Team (Late st Contact Info) Description 05/08/2025 8:47 AM GENERAL FORECASTER Anesthesia Event [facility] Labor and Delivery [address] [place] [address] Kimberly Polk MD [address] [place] [address] Anesthesia Record Procedure Summary Procedure Name Responsible Anesthesiologist Anesthesia Start Time Anesthesia Stop Time SECTION (Abdomen) Kimberly oPlk MD 05/08/25 0847 05/08/25 1014 Events Date Time Event Comment 05/08/2025 0847 AN Equip Check Anesthesia eq uipment and materials checked in accordance with local policy. 0847 An Start 0907 In Room This event disp lays the In Room time documented in the Surgical Log. Deleting this event will not remove it from the log but will remove it from the Grid and Graph timeline. 0911 An Start Data 0912 Pre-Induction Immediate pre- induction anesthetic assessment performed. Vital signs as noted on graphic. 0913 An Induction 0915 Anesthesia Ready 0930 Procedure Start This event d isplays the Procedure Start time documented in the Surgical Log. Deleting this event will not remove it from the log but will remove it from the Grid and Graph timeline. 0934 0934 Uterine Incision This event displays the Uterine Incision time documented in the Surgical Log. Deleting this event will not remove it from the log but will remove it from the Grid and Graph timeline. 0958 Procedure Stop This event di splays the Procedure Stop time documented in the Surgical Log. Deleting this event will not remove it from the log but will remove it from the Grid and Graph timeline. 0959 an stop data 1007 Out of Room This event disp lays the Out of Room time documented in the Surgical Log. Deleting this event will not remove it from the log but will remove it from the Grid and Graph timeline. 1014 An Stop 1014 Hand-off to Receiving Clinic zach Meds Name Total oxytocin (PITOCIN) 30 units in 0.9% sodi um chloride 500 mL infusion 10.2 Units oxytocin (PITOCIN) BOLUS from infusion 3 Units 3 Units ceFAZolin (ANCEF,KEFZOL) 3,000 mg in sod ium chloride 0.9 % 115 mL IVPB 3,000 mg phenylephrine 1 mg/10 mL (100 mcg/mL) sy ringe 200 mcg ondansetron (ZOFRAN) 4 mg/2 mL injection 4 mg ketorolac (TORADOL) 30 mg/mL injection 10 mg fentaNYL (SUBLIMAZE) PF 50 mcg/mL injection 15 mcg morphine PF (DURAMORPH) 1 mg/mL injection 0.1 mg lactated ringers infusion 1,300 mL * Agents Name O2 * Blood No blood administrations on file. Lines, Drains, and Airways Type Details Placement Removal Peripheral IV Orientation: Anterio r, Distal, Left, Upper; Location: Arm; Device: Angiocath; Gauge: 18 gauge; Needle Length: 1.25 in length; Insertion Attempts: 3; Patient Tolerance: tolerated well; Removal Indication: no longer indicated, removed per policy; Removal Interventions: catheter intact, direct pressure, pressure dressing 05/08/25 0756 by Maritza Olivera RN 05/09/25 0750 by Delmis Aguilera RN Indwelling Urethral Catheter 05/08/25; 09; No; Indwelling double lumen catheter; latex; 16 Fr; inserted; 1; 05/08/25; 212905/08/25 09 by Maritza Olivera RN 05/08/252129 by Aristides Lao GN documented in this encounter Social History Tobacco Use Types Packs/Day Years [...] worry about transportation for future doctor visits, roll picker medication, etc.? No 2024 Housing Stability Answer [...] on file documented as of this encounter OR Notes * Anesthesia Postprocedure Evaluation - Kimberly Polk MD - 05/08/2025 10:48 AM CST Post Anesthesia Evaluation Vitals: Vitals Value Taken Time BP 121/54 05/08/25 10:30 Temp 35.9 ??C 05/08/25 10:40 Resp 12 05/08/25 10:40 SpO2 97 % 05/08/25 10:30 Pulse Heart Rate 81 bpm 05/08/25 10:30 Pain Rating: Anesthesia Post Evaluation Stable cardiovascular and respiratory status. Appropriate mental status. Adequate hydration. Normothermic. No notable events documented. Kimberly Polk MD RAL FORECASTER * Anesthesia Handoff - Mar Bautista CRNA - 05/08/2025 10:13 AM GENERAL FORECASTER Post-Anesthetic transfer of care report elements to appropriate post-anesthesia recovery environment completed in accordance with procedure. Pt back to room, VSS, Pt resting, Report to RN I completed my handoff to the receiving nurse during which we: 1. Identified the patient 2. Identified the responsible provider 3. Reviewed the pertinent medical history 4. Discussed the surgical course 5. Reviewed intra-op anesthesia management and issues during anesthesia 6. Set expectations for post-procedure period 7. Orders as necessary and appropriate for continuation of care are present in Epic. 8. Allowed opportunity for questions and acknowledgement of understanding. Vital Signs: Vitals Value Taken Time BP 109/69 05/08/25 10:10 Temp Resp SpO2 95 % 05/08/25 10:09 Pulse Heart Rate 75 bpm 05/08/25 10:10 Vitals shown include unfiled device data. 10:13 AM Mar Bautista CRNA RAL FORECASTER * Anesthesia Procedure Notes - Kimberly Polk MD - 05/08/2025 9:35 AM GENERAL FORECASTER Associated Order(s): Spinal Block Spinal Block Patient location during procedure: OR Start time: 05/08/2025 9:10 AM End time: 05/08/2025 9:13 AM Reason for block: at surgeon's request and primary anesthetic Staffing Authorized by: Kimberly Polk MD Performed by: Kimberly Polk MD Preanesthetic Checklist Completed: patient identified, IV checked, site marked, risks and benefits discussed, surgical consent, monitors and equipment checked, pre-op evaluation and timeout performed Spinal Hand hygiene performed prior to procedure Patient was prepped and draped in usual sterile fashion Time out performed Mask worn Patient position: Sitting Prep: ChloraPrep Local Anesthetic: Lidocaine 1% without epinephrine Patient monitoring: Continuous pulse oximetry, Heart rate and Non-invasive blood pressure Approach: Midline Location: L3-4 Injection Technique: Single-shot [place] Identification: palpation technique Number of Attempts: 1 Spinal Needle Needle type: Pencil-tip Needle gauge: 25 GCSF visualized Assessment No paresthesia Events: easy and well tolerated Outcome: A full evaluation is pending Additional Notes Risks and benefits for spinal anesthesia discussed with the patient and questions answered. Monitors placed. Chloraprep and drape. 3mL 1% lidocaine infiltrated at L3-4. Introducer and 25g gris spinal needle used. Positive CSF before and after IT dose equal to 2 mL 0.75% bupivacaine with dextrose and 100 mcg Duramorph and 15 mcg Fentanyl. Patient tolerated the procedure well. No complications noted. Immediately following SAB, patient placed in ANY position. RAL FORECASTER * Anesthesia Preprocedure Evaluation - Kimberly Polk MD - 05/08/2025 8:27 AM CST Relevant Problems No relevant active problems Anesthesia Evaluation diamond mounter Evaluation Anesthesia Plan ASA Final: 3 Spinal Bri Emanuel is a 25 y.o. female Date: 05/08/2025 Interview: Holding Preoperative Diagnosis HOSP, Primary, Breech, EDC 05/09/25, Scheduled Procedure SECTION NPO: >8 hours (solid food) and >2 hours (clear liquids) No Known Allergies No past medical history on file. Past Surgical History: Procedure Laterality Date HX WISDOM TEETH EXTRACTION Bilateral 2019 No current facility-administered medications on file prior to encounter. Current Outpatient Medications on File Prior to Encounter Medication Sig Dispense Refill VIT-IRON FUM-FOLIC AC ORAL Take by mouth daily. Physical Exam: Airway Class: II (soft palate, uvula, fauces visible) Dentition: fair Pulmonary: clear to auscultation Cardiac: regular rate and rhythm Neuro: alert Pertinent lab: Results for orders placed or performed during the hospital encounter of 05/08/25 (from the past 24 hours) CBC WITHOUT DIFFERENTIAL Result Value Ref Range WBC 10.2 4.5 - 11.0 K/uL RBC 4.45 4.20 - 5.40 M/uL HEMOGLOBIN 13.2 12.0 - 16.0 g/dL HEMATOCRIT 39.5 36.0 - 46.0 % MCV 88.8 84.0 - 103.0 fL MCH 29.7 27.0 - 34.0 pg MCHC 33.4 30.0 - 35.0 g/dL PLATELETS 170 140 - 440 K/uL MPV 11.2 8.9 - 12.8 fL RDW 13.2 11.0 - 14.5 % RDW-STDEV 42.9 37.0 - 54.0 fL Pertinent lab: Lab Results Component Value Date/Time WBC 10.2 05/08/2025 07:58 AM HGB 13.2 05/08/2025 07:58 AM HCT 39.5 05/08/2025 07:58 AM PLT 170 05/08/2025 07:58 AM MCV 88.8 05/08/2025 07:58 AM No results found for: NA , K , CL , CO2 , CA , BUN , CREAT , GLUCOSE , TOTALPROTEIN , ALBUMIN , BILITOTAL , ALKPHOS , AST , ALT , ANIONGAP , BCRATIO Receiving beta-prasanth therapy? No Received dose within last 24 hours? No The risks and benefits of the proposed anesthetic have been discussed. The patient has agreed to Spinal. Anesthesia guideline orders initiated. Special considerations: BMI 42. Kimberly Polk MD RAL FORECASTER documented in this encounter Plan of Treatment Upcoming Encounters Date Type Department Care Team (Late st Contact Info) Description 05/18/2025 1:20 PM GENERAL FORECASTER Office Visit [facility] [place] [phone] [place] [address] Siena Nair CNM [address] [place] [id number] 05/25/2025 5:00 PM GENERAL FORECASTER Telephone Check Up [facility] [place] [phone] [facility] [address] [place] [address] Laura Rich APRN-[facility] [address] [facility] [address] [place] [address] 06/18/2025 3:20 PM GENERAL FORECASTER Office Visit [facility] [place] [phone] [facility] [address] [place] [address] MichelleLuiza [facility] [address] [facility] [address] [place] [address] documented as of this encounter Procedures Procedure Name Priority Date/Time Associated Diagnosis Comments TX ANESTHESIA BLOCK PB PLACEHOLDER CHARGE Routine 05/08/2025 9:35 AM GENERAL FORECASTER documented in this encounter Results * TX ANESTHESIA BLOCK PB PLACEHOLDER CHARGE (05/08/2025 9:35 AM GENERAL FORECASTER) Narrative Kimberly Polk MD - 05/08/2025 9:35 AM GENERAL FORECASTER Kimberly Polk MD 05/08/2025 9:35 AM Spinal Block Patient location during procedure: OR Start time: 05/08/2025 9:10 AM End time: 05/08/2025 9:13 AM Reason for block: at surgeon's request and primary anesthetic Staffing Authorized by: Kimberly Polk MD Performed by: Kimberly Polk MD Preanesthetic Checklist Completed: patient identified, IV checked, site marked, risks and benefits discussed, surgical consent, monitors and equipment checked, pre-op evaluation and timeout performed Spinal Hand hygiene performed prior to procedure Patient was prepped and draped in usual sterile fashion Time out performed Mask worn Patient position: Sitting Prep: ChloraPrep Local Anesthetic: Lidocaine 1% without epinephrine Patient monitoring: Continuous pulse oximetry, Heart rate and Non-invasive blood pressure Approach: Midline Location: L3-4 Injection Technique: Single-shot [place] Identification: palpation technique Number of Attempts: 1 Spinal Needle Needle type: Pencil-tip Needle gauge: 25 GCSF visualized Assessment No paresthesia Events: easy and well tolerated Outcome: A full evaluation is pending Additional Notes Risks and benefits for spinal anesthesia discussed with the patient and questions answered. Monitors placed. Chloraprep and drape. 3mL 1% lidocaine infiltrated at L3-4. Introducer and 25g gris spinal needle used. Positive CSF before and after IT dose equal to 2 mL 0.75% bupivacaine with dextrose and 100 mcg Duramorph and 15 mcg Fentanyl. Patient tolerated the procedure well. No complications noted. Immediately following SAB, patient placed in ANY position. Kimberly Polk MD PROCEDURE/MINOR SURGICAL ORDE BERNICE Final Result documented in this encounter Visit Diagnoses Not on filedocumented in this encounter Administered Medications Inactive Administered Medications - up to 3 most recent administrations Medication Order MAR Action Action Date Dose Rate Site ceFAZolin (ANCEF,KEFZOL) 3,000 mg in sodium chloride 0.9 % 115 mL IVPB 3,000 mg, IV, PRE-PROCEDURE ONCE, 1 dose, Starting on Sun05/08/25 at 0715, Until Sun05/08/25 at 0927, Routine, Pre-op, Antibiotic Indication: Surgical prophylaxis New Bag 05/08/2025 9:22 AM GENERAL FORECASTER 3,000 mg fentaNYL (PF) (SUBLIMAZE) 50 mcg/mL injection IntraTHEcal, INTRA-PROCEDURE PRN, Starting on Sun05/08/25 at 0913, Until Sun05/08/25 at 1014, Routine, Anesthesia Intra-op Given 05/08/2025 9:13 AM GENERAL FORECASTER 15 mcg ketorolac (TORADOL) injection IV, INTRA-PROCEDURE PRN, Starting on Sun05/08/25 at 0953, Until Sun05/08/25 at 1014, Routine, Anesthesia Intra-op Given 05/08/2025 9:53 AM GENERAL FORECASTER 10 mg lactated ringers infusion IV, at 125 mL/hr, PRE-PROCEDURE CONTINUOUS, Starting on Sun05/08/25 at 0730, Until Sun05/08/25 at 1305, Routine, Pre-op Continue from Pre-Op 05/08/2025 8:47 AM GENERAL FORECASTER 125 mL/hr New Bag 05/08/2025 8:04 AM GENERAL FORECASTER 125 mL/hr morphine PF (ASTRAMORPH,DURAMORPH) 1 mg/mL injection IntraTHEcal, INTRA-PROCEDURE PRN, Starting on Sun05/08/25 at 0913, Until Sun05/08/25 at 1014, Routine, Anesthesia Intra-op Given 05/08/2025 9:13 AM GENERAL FORECASTER 0.1 mg ondansetron (ZOFRAN) 4 mg/2 mL injection IV, INTRA-PROCEDURE PRN, Starting on Sun05/08/25 at 0937, Until Sun05/08/25 at 1014, Routine, Anesthesia Intra-op Given 05/08/2025 9:37 AM GENERAL FORECASTER 4 mg oxytocin (PITOCIN) 30 units in 0.9% sodium chloride 500 mL infusion 3.6-18 Units/hr (60-300 mL/hr), IV, SEE ADMIN INSTRUCTIONS, Starting on Sun05/08/25 at 0713, Until Sun05/10/25 at 1431, Initial infusion rate/duration? 18 units/hr = 300 mL/hr for 1 hour, Subsequent infusion rate/duration? 3.6 units/hr = 60 mL/hr for 3 hours then stop Rate Verify 05/08/2025 12:57 PM GENERAL FORECASTER 3.6 Units/hr 60 mL/hr New Bag 05/08/2025 12:29 PM GENERAL FORECASTER 3.6 Units/hr 60 mL/hr Rate Change 05/08/2025 10:48 AM GENERAL FORECASTER 3.6 Units/hr 60 mL/hr oxytocin (PITOCIN) BOLUS from infusion 3 Units 3 Units, IV, SEE ADMIN INSTRUCTIONS, 1 dose, Starting on Sun05/08/25 at 0713, Until Sun05/08/25 at 0936, Routine New Bag 05/08/2025 9:36 AM GENERAL FORECASTER 3 Units phenylephrine syringe IV, INTRA-PROCEDURE PRN, Starting on Sun05/08/25 at 0923, Until Sun05/08/25 at 1014, Routine, Anesthesia Intra-op Given 05/08/2025 9:33 AM GENERAL FORECASTER 100 mcg Given 05/08/2025 9:23 AM GENERAL FORECASTER 100 mcg documented in this encounter
--- OUTSIDE RECORDS SUMMARY | 2025-05-08 09:00 | XMS_ITS | Encounter Summary ---
Author Organization [facility] Address [address] [place] [address] Care Team Providers Care [employer] Wafers Marker Name Role Phone Unavailable Primary Care Provider Unavailabl e Reason for Visit * Auth/Cert (Routine) Specialty Diagnoses / Procedures Referred By Aidan t Referred To Contact Obstetrics Codie Cali MD [address] [place] [phone] Phone: tel: fax: [facility] Labor and Delivery [address] [place] [address] Phone: tel: fax: Referral ID Status Reason Start Date Expiration Date Visits Re quested Visits Authorized [id number] 1 1 Encounter Details Date Type Department Care Team (Late st Contact Info) Description 05/08/2025 9:00 AM SWITCH MAKER - 05/08/2025 10:37 AM SWITCH MAKER Surgery [facility] Labor and Delivery [address] [place] [phone] Lulu Denton MD [address] [place] [phone] SECTION Surgery Details Date/Time Status Location OR Service Patient Class Case Class Case Type Trauma Case? 05/08/2025 9:00 AM Posted [facility] DELIVERY LD OR A Obstetrics Surgery Admit Elective No Panel 1 Procedure LRB Anes Op Region Wound Class Comments SECTION N/A Spinal Abdomen Clean Contami nated-II Surgeon Surgeon Role Service Panel Lulu Denton MD Primary Obstetrics 1 documented in this encounter Social History Tobacco [...] worry about transportation for future doctor visits, oyster picker medication, etc.? No 2024 Housing Stability [...] Sign Reading Time Taken Comments Blood Pressure 121/54 05/08/2025 10:30 AM SWITCH MAKER Pulse - - Temperature 35.8 C (96.4 F) 05/08/2025 10:10 AM SWITCH MAKER Respiratory Rate 12 05/08/2025 10:10 AM SWITCH MAKER Oxygen Saturation 98% 05/08/2025 10:35 AM SWITCH MAKER Inhaled Oxygen Concentration - - Weight 139.7 kg (308 lb) 05/08/2025 7:22 AM SWITCH MAKER Height 182.9 cm (6' 0.01 ) 05/08/2025 7:22 AM CS T Body Mass Index 41.72 05/08/2025 1:14 PM SWITCH MAKER documented in this encounter Functional Status * [place]-Suicide Severity Rating Scale (Past Month) Question Answer Date of Assessment Author 1. Have you wished you were or wished you could go to sleep and not wake up? No 05/10/2025 8:25 AM SWITCH MAKER Delmis Aguilera R N 2. Have you actually had any thoughts of killing yourself? No 05/10/2025 8:25 AM SWITCH MAKER Shahbaz Aguilera RN 6. Have you ever done anythi ng, started to do anything, or prepared to do anything to end your life? No 05/10/2025 8:25 AM Delmis Meyer R N Is this encounter related to suicidal behavior/attempt? No 05/10/2025 4:06 AM Gaurav Hanks GN Reported By Patient 05/10/2025 4:06 AM SWITCH MAKER Aristides Lao GN * Chest Pain Assessment Question Answer Date of Assessment Author Description: Quality soreness 05/10/2025 8:55 AM Delmis Huynh RN Location: Orientation Bilateral:;lower 05/10/2025 8:55 AM Delmis Meyer RN Location incision 05/10/2025 8:55 AM Delmis Meyer RN Pain Rating: Number 0-10 (rest) 3 05/10/2025 8:55 AM Delmis Meyer R N Response to Interventions content/relaxe d;verb alized relief 05/10/2025 8:55 AM Dlemis Meyer RN * Micheal Risk Assessment Question [...] of food intake) 4 2024 8:25 AM Dlemis Meyer RN Friction and Shear 3 05/10/2025 8:25 AM Delmis Meyer RN Micheal Score 22 05/10/2025 8:25 AM Delmis Meyer RN * Coping Question Answer Date of Assessment Author Involvement in Care: Significant Other at bedside;attentive to patient 05/10/2025 8:25 AM Delmis Meyer RN Observed Emotional State no concerns;calm 05/10/2025 4 :06 AM SWITCH MAKER Aristides Lao GN * Nipples Question Answer Date of Assessment Author Nipples (WDL) WDL except 05/10/2025 8:25 AM Delmis Meyer RN Nipples tender 05/10/2025 8:25 AM Delmis Meyer RN * Breasts Question Answer Date of Assessment Author Breasts (WDL) WDL 05/10/2025 8:25 AM Delmis Meyer RN * Perineum Question Answer Date of Assessment Author Perineum (WDL) Not assessed 05/10/2025 8:25 AM Delmis Crabtree [...] Question Answer Date of Assessment Author Ear (WDL) WDL 05/09/2025 9:17 PM SWITCH MAKER Aristides Lao GN Eye (WD) WDL 05/09/2025 9:17 PM SWITCH MAKER Aristides Lao GN Vision Change: Left vision change denied 05/10/2025 8: 25 AM Delmis Meyer RN Vision Change: Right vision change denied 05/10/2025 8 :25 AM Delmis Meyer RN Head/Face (WD) WD 05/08/2025 9:09 PM SWITCH MAKER Aristides Francois GN Mouth (WD) WD 05/09/2025 9:17 PM SWITCH MAKER Aristides Lao GN * Safety Question Answer [...] Answer Date of Assessment Author Peripheral Neurovascular (WDL) WDL except 05/08/2025 7:15 AM Maritza Trevino RN * Genitourinary Question Answer Date of Assessment Author Genitourinary (WDL) WDL 05/08/2025 12:10 PM Maritza Briggs RN * [...] of Assessment Author 19.95 05/10/2025 11:41 AM SWITCH MAKER QBatch, User * Diabetes Risk Score (DPP Lifestyle Modification) Answer Date of Assessment Author 8.38 05/10/2025 11:41 AM SWITCH MAKER QBatch, User * Diabetes Risk Score (Metformin) Answer Date of Assessment Author 17.3 05/10/2025 11:41 AM SWITCH MAKER QBatch, User * SIRS Score Answer Date of Assessment Author 0 05/10/2025 12:21 PM SWITCH MAKER QBatch, User * Void Output Question Answer Date of Assessment Author Urine Color light red 05/09/2025 2:30 AM Aristides Hanks GN Urine Characteristics clear 05/09/2025 2:30 AM Aristides Hanks GN Incontinence Containment Product Urine collection device 05/09/2025 2:30 AM Aristides Hanks GN Unmeasured Void Moderate amount urine 05/10/2025 9:00 AM SWITCH MAKER Pulber, Marcy, ORDER PROCESSING MANAGER * Activity & Exercise Question Answer Date [...] Compression Device (SCDs) Removed/off 05/09/2025 3:45 PM SWITCH MAKER Delmis Aguilera, R N Antiembolism Stocking Order to discontinue 05/10/2025 4:06 AM SWITCH MAKER Aristides Lao GN * Musculoskeletal Question Answer Date of [...] Plan for Pain Management Other (comment) 05/08/2025 7 :52 AM Maritza Trevino RN * RETIRED Cardiovascular Question Answer Date of Assessment Author Cardiac (WDL) WD 05/08/2025 10:10 AM Maritza Umanzor RN * Respiratory Question Answer Date of Assessment Author Respiratory (WDL) WDL 05/10/2025 8:25 AM Delmis Meyer RN * Peripheral Neurovascular Question Answer Date of Assessment Author Capillary Refill equal to/less than 3 secs 05/10/2025 8:25 AM Delmis Meyer RN Calf Tenderness calf tenderness not present 05/10/2025 8:25 AM Delmis Meyer RN Peripheral Neurovascular (WDL) WD except 05/10/2025 8:25 AM Delmis Meyer RN * Deep Tendon Reflexes Question Answer Date of Assessment Author Clonus None 05/10/2025 8:25 AM Delmis Meyer RN * Cognitive/Perceptual/Neuro Question Answer Date of Assessment Author Orientation oriented to;person;place;time;situation 05/10/2025 4:06 AM Aristides Hanks GN * Gastrointestinal Question Answer Date of Assessment Author Last Bowel Movement (mm/dd/yyyy) [address]4618 05/10/2025 8:25 AM Delmis Meyer R N Bowel Sounds: All Quadrants hypoactive 05/09/2025 7: 50 AM Delmis Meyer RN Signs/Symptoms passing flatus 05/10/2025 8:25 AM Delmis Calderon RN Gastrointestinal (WDL) WDL 05/10/2025 8:25 AM Delmis Meyer RN * Genitourinary Question Answer Date of Assessment Author Voiding Characteristics urinary device present 05/08/2025 9:09 PM Aristides Hanks GN Genitourinary (WD) WDL 05/10/2025 8:25 AM CS T Delmis Aguilera RN * Cardiovascular Question Answer Date of Assessment Author Cardiac (WDL) WDL 05/10/2025 8:25 AM Delmis Meyer RN * Lochia 1-3 Days Question Answer Date of Assessment Author Lochia 1-3 Days (WD) WDL 05/10/2025 8:25 AM Delmis Meyer RN Odor similar to menstrual flow 05/10/2025 8:25 AM Delmis Meyer RN Amount scant (less than 2.5 cm on pad/hr) 05/10/2025 8:25 AM Delmis Meyer RN * Suicide Risk and Interventions Answer Date of Assessment Author No Risk 05/10/2025 8:25 AM Jenny Meyer RN * Suspected Infection Answer Date of Assessment Author 0 05/10/2025 12:21 PM SWITCH MAKER QBatch, User * Organ Dysfunction Score Answer Date of Assessment Author 0 05/10/2025 12:21 PM SWITCH MAKER QBatch, User * Sepsis Score Answer Date of Assessment Author 0 05/10/2025 12:21 PM SWITCH MAKER QBatch, User * Severe Sepsis Score Answer Date of Assessment Author 0 05/10/2025 12:21 PM SWITCH MAKER QBatch, User * Septic Shock Score Answer Date of Assessment Author 0 05/10/2025 12:21 PM SWITCH MAKER QBatch, User * Sepsis Review Score Answer Date of Assessment Author 0 05/10/2025 12:21 PM SWITCH MAKER QBatch, User * Septic Shock Criteria Answer Date of Assessment Author 0 05/10/2025 12:21 PM SWITCH MAKER QBatch, User * OB VTE Risk Assessment Question Answer Date of Assessment Author Have you been hospitalized m ore than 3 days in the last month? 0 05/08/2025 7:49 AM Maritza Trevino RN History of clotting/bleeding disorder? Patient denies 05/08/2025 7:49 AM Maritza Trevino RN OB VTE Score 1 05/08/2025 7:49 AM Maritza Trevino RN BMI (auto calculated) 41.76 05/08/2025 7:49 AM Maritza Trevion RN OB VTE Score Indicates Low Risk 05/08/2025 7:49 AM Maritza Trevino RN * Severe Pneumonia Score Answer Date of Assessment Author 3 05/10/2025 12:00 PM SWITCH MAKER QBatch, User * Two Person Skin Check Question Answer Date of Assessment Author Is Redness Present? No 05/08/2025 1:15 PM CS Janette Araujo RN Security Operations Center Analyst 1 B Willy JOHNSON 05/08/2025 1:15 PM Janette Grady RN Security Operations Center Analyst 2 Cynthia Arias RN 05/08/2025 1:15 PM SWITCH MAKER Janette Dove, RN * Petra Emanuel Fall Risk on Admission Question Answer Date of Assessment Author Last Known Fall 0 05/08/2025 7:53 AM Maritza Cunningham RN Mobility 0 05/08/2025 7:53 AM Maritza Trevino RN Medications 0 05/08/2025 7:53 AM Maritza Trevino RN Mental Status/LOC/Awareness 0 05/08/2025 7: 53 AM Maritza Trevino RN Toileting Needs 0 05/08/2025 7:53 AM Maritza uCnningham RN Volume/Electrolyte Status 0 05/08/2025 7:53 AM [...] of Assessment Author Low 05/10/2025 7:50 AM SWITCH MAKER Backgroun d, Cognitive Computing * PPH Risk Category Admission Question Answer Date of Assessment Author Prior or Prio r Uterine Incision No 05/08/2025 7:51 AM Maritza Trevino RN Number of Previous Births 1 05/08/2025 7:51 AM Maritza Trevino RN Multiple Births No 05/08/2025 7:51 AM SWITCH MAKER Maritza Ferrer RN Known Bleeding Disorder or Coagulopathy No [...] Risk (auto calculated) 0.79 05/10/2025 7:50 AM SWITCH MAKER Background, Cogni tive Computing Sofa Score(auto calculated) 4 05/10/2025 12 :02 PM SWITCH MAKER QBatch, User Readmission Risk Score 5 05/10/2025 12:31 P M Janette Leiva RN [id number] Score (Used for patients with atrial fibrillation) [...] of body movement) 4 05/10/2025 8:25 AM SWITCH MAKER Delmis Aguilera R N * Activity Question Answer Date [...] Checks Safety check completed 8:25 AM Delmis Meeyr RN Activity Assist Needed Screening Independent 05/10/2025 [...] Compression Device (SCDs) Removed/off 05/09/2025 3:45 PM SWITCH MAKER Delmis Aguilera R N Antiembolism Stocking Order to discontinue 05/10/2025 4:06 AM SWITCH MAKER Aristides Lao GN * Musculoskeletal Question Answer Date of [...] of Assessment Author Low 05/10/2025 7:50 AM SWITCH MAKER Backgroun d, Cognitive Computing * Adult Acuity Scoring Question Answer Date of Assessment Author Current Predicted Fall Risk (auto calculated) 0.79 05/10/2025 7:50 AM SWITCH MAKER Background, Cogni tive Computing documented as of this encounter Mental Status * [place]-Suicide Severity Rating Scale (Past Month) Question Answer [...] Question Answer Entry Date Author Peripheral Neurovascular ([facility]) WD except 05/08/2025 7:15 AM Maritza Trevino RN [...] Date Author No Risk 05/10/2025 8:25 AM SWITCH MAKER Jenny Aguilera, RN * SEAN Response Question Answer Entry Date Author SEAN Response Activated No 05/10/2025 4:06 A M SWITCH MAKER Aristides Lao GN * Violence Assessment Tool Risk Indicators Question Answer Entry Date Author Violence Assessment Tool Total Score 0 05/10/2025 4:06 AM SWITCH MAKER Aristides Lao N, GN Assessment Type Reassessment 05/10/2025 4:06 AM SWITCH MAKER Aristides Francois N, GN History of Violence 0 05/10/2025 4:06 AM CS Aristides Carpenter N, GN Confused 0 05/10/2025 4:06 AM SWITCH MAKER Niecy Laoy N, GN Irritable 0 05/10/2025 4:06 AM SWITCH MAKER Niecy Laoy N, GN Boisterous 0 05/10/2025 4:06 AM SWITCH MAKER Niecy Laoy N, GN Verbal Threats 0 05/10/2025 4:06 AM SWITCH MAKER Aristides Roque N, GN Physical Threats 0 05/10/2025 4:06 AM SWITCH MAKER Aristides Alexander N, GN Attacking Objects 0 05/10/2025 4:06 AM SWITCH MAKER Niecy Laoy N, GN Agitated/Impulsive 0 05/10/2025 4:06 AM SWITCH MAKER Niecy Laoy N, GN Paranoid/Suspicious 0 05/10/2025 4:06 AM CS Niecy Carpentery N, GN Substance Intoxication/Withdrawal 0 05/10/2025 4:06 AM SWITCH MAKER Niecy Laoy N, GN Socially Inappropriate/Disruptive Behavior 0 05/10/2025 4:06 AM SWITCH MAKER Niecy Laoy N, GN Body Language 0 05/10/2025 4:06 AM SWITCH MAKER Melissa Howellbrey N, GN * Violence Risk Question Answer Entry Date Author Are you concerned about the patient's violence risk? No 05/10/2025 4:06 AM SWITCH MAKER Niecy Lao y N, GN * [place] Depression Scale Concern Calculation Answer Entry Date Author 2 05/08/2025 3:50 PM SWITCH MAKER Jenny Aguilera, RN * Violence Assessment Tool Total Score Answer Entry Date Author 0 05/10/2025 4:06 AM SWITCH MAKER Melissa Lao GN * [place] Depression Scale: In the Past 7 Days Question Answer Entry Date Author I have been able to laugh an d see the funny side of things. 0 05/08/2025 3:50 PM SWITCH MAKER Dario Aguilera i, RN I have looked forward with e njoyment to things. 0 05/08/2025 3:50 PM SWITCH MAKER Delmis Aguilera, R N I have blamed myself unneces sarily when things went wrong. 1 05/08/2025 3:50 PM SWITCH MAKER Delmis Aguilera RN I have been anxious or worri ed for no good reason. 1 05/08/2025 3:50 PM SWITCH MAKER Delmis Aguilera, Jayla Lu I have felt scared or panick y for no good reason. 1 05/08/2025 3:50 PM SWITCH MAKER Delmis Aguilera, Jayla N Things have been getting on top of me. 1 05/08/2025 3:50 PM SWITCH MAKER Delmis Aguilera, R N I have been so unhappy that I have had difficulty sleeping. 0 05/08/2025 3:50 PM SWITCH MAKER Delmis Aguilera RN I have felt sad or miserable. 1 05/08/2025 3:50 PM SWITCH MAKER Delmis Aguilera RN I have been so unhappy that I have been crying. 1 05/08/2025 3:50 PM SWITCH MAKER Delmis Aguilera, R N The thought of harming mysel f has occurred to me. 0 05/08/2025 3:50 PM SWITCH MAKER Delmis Aguilera, R N [place] Depressi on Scale Total 6 05/08/2025 3:50 PM SWITCH MAKER Delmis Aguilera, R N * Care Question Answer Entry Date Author Patellar Reflex: Left +1 05/08/2025 7:44 AM SWITCH MAKER Maritza Olivera RN Patellar Reflex: Right +1 05/08/2025 7:44 AM SWITCH MAKER Maritza Olivera RN documented in this encounter Discharge Instructions * Discharge Instructions* Delmis Aguilera RN - 05/10/2025 10:20 AM SWITCH MAKER Discharge Instructions for Patients RHOGAM: Candidate for [...] if you are . : Refer to [facility] outpatient department, your OB/take off worker/electrophysiology technician's office for questions about . FORMULA FEEDING: [...] program that you might find helpful; call [phone]. Second-hand smoke is not healthy for you or the baby so do not allow smoking in your house or car. Education: [x] POST magnet given [x] Instructed patient to add the AIM Pre-eclampsia symptoms QR code to their phone [x] Received Your Guide to and [place] [facility] Discharging RN : Delmis Aguilera RN CH MAKER * Attachments The following attachments cannot be sent through Care Everywhere. * Section: Post op (Italian) * After Your : The First 12 Weeks: Video (Italian) documented in this encounter Medications at Time of Discharge oxyCODONE (ROXICODONE) 5 mg tabletIndications :S/P section Take 1 Tablet (5 mg) by mouth every 4 hours as needed for Pain. Max Daily Amount: 30 mg 20 Tablet 05/10/2025 11:59 AM SWITCH MAKER 05/10/2025 05/14/2025 ibuprofen (MOTRIN) 800 mg tablet [...] weeks. Oral pain meds Amber Lee MD CH MAKER * Delmis Aguilera RN - 05/08/2025 12:31 PM CST [facility] [place]-MOTHER Bri Emanuel 25 y.o. [...] opened, this information will not be available.) CH MAKER CH MAKER * Harris Linares RN - 04/22/2025 8:07 AM CST Pt here for external cephalic version. Unsuccessful. Pt tolerated well. NST reactive and reviewed by Dr. Cali. Pt denies UC. Discharge teaching and fkc sheet provided. Verbalized understanding. Amb off unit. No s/s of distress noted. Pt denied w/c escort. CH MAKER documented in this encounter H&P Notes * Lulu Denton MD - 05/08/2025 8:49 AM CST OB History and Physical Bri Emanuel [id number] 05/08/2025 8:50 AM Primary OB Provider: Hannah [...] bpm Variability: moderate Accelerations: present Decelerations: Absent Levan: infrequent Interpretation: Category 1 Lab Review: No results found for: [facility] ABO GROUP Date Value Ref Range Status 05/08/2025 O Final ABSTRACTED RUBELLA IGG Date Value Ref Range Status 09/23/2024 Immune Final No results found for: [id number] Problem List: Active Problems: * No active hospital problems. * [id number] weeks gestation. Patient Active Problem List Diagnosis [...] etc. Lulu Denton MD 05/08/2025 8:50 AM CH MAKER documented in this encounter Procedure Notes * Harris Linares RN - 04/22/2025 8:04 AM CSTProcedure(s): NONSTRESS TEST Antepartum Heart Rate Tracing Bri Barcenas Adelfo : 2000 DOS: 04/22/25 Indication: External version attempt Gestational Age: 37w4d Interpreting physician: Dr. Codie Cali Total EFM Time: Greater than 20 minutes NEHA RN at bedside, patient evaluated Harris Linares RN Physician Interpretation: Non-Stress Test Gestational Age: 37w4d Baseline: Variability: Accelerations: Decelerations: TOCO: Interpretation: Recommendation(s): Comments: CH MAKER documented in this encounter OR Notes * Operative Report - Lulu Denton MD - 05/08/2025 9:56 AM CST Operative Report: Section Bri Emanuel [id number] 05/08/2025 9:57 AM Pre-operative Diagnosis: 1. 39w6d IUP 2. malpresentation - Breech Post -operative Diagnosis: same as pre-operative diagnosis Indications: see pre-op diagnosis above, H&P, and most recent progress note(s) Procedure: primary Low Transverse Section Surgeon: Lulu Denton MD Anesthesia: Spinal/Anesthesiologist: Kimberly Polk MD CLAM SORTER: Mar Bautista CRNA Operative Findings: Viable female delivered without complication. Gestational Age: 39w6d Date of Delivery: 05/08/2025 Time of Delivery: 9:35 AM Sex: Female Delivery Type: Refer to Delivery Summary. Delayed Cord Clamping: Yes (Refer to Delivery Summary) Weight: 3160 g (6 lb 15.5 oz) [...] sent to pathology. No results found for: [facility] Complications: None Disposition: to postop care on [...] condition. Lulu Denton MD 9:57 AM 05/08/2025 CH MAKER documented in this encounter Miscellaneous Notes * [...] with activity, fluid, and fiber intake promoted. CH MAKER * Care Plan - Aristides Lao GN [...] no complications were documented during the shift. CH MAKER * Care Plan - Delmis Aguilera RN [...] equal to or less than 3 seconds. CH MAKER * Note - Amber Ferraro LPN - 05/09/2025 4:29 PM CST This note was copied from a baby's chart. Assessment Referral: [] Self [] Physician [x] Inpatient [] Other SUBJECTIVE- Mother states this is her second baby and she desires to provide breastmilk. Mother states is going good. She states has been receiving supplements. Mother says is feeding frequently, no difficulties waking. States [...] to be most appropriate atthis time. OBJECTIVE/ASSESSMENT- with -4% weight loss. Upon entering room, observed to mother's right breast in cradle hold. Mother latched in cross cradle hold. After a couple of attempts,infant with wide gape and flanged lips, demonstrates sustained and coordinated suckling. Mother denies pain with latch. See assessment flow sheet. Encouraged mother to continue to feed frequently, recommending every 2-3 hours, following feeding cues and waking as needed. See feeding plan below. Education completed on normal lactogenesis and feeding patterns/behaviors. Mother verbalized understanding. Discussed breast/nipple care. Discussed engorgement relief interventions and breastmilk storage guidelines, referencing the 'Post and Care'. Mother given a Nine Notable Nutrients [...] appropriate wet and dirty diapers. -F/U with electrophysiology technician, as instructed. -Call my zone phone today with any further questions/ needs (contact number written on dry/erase board in mother's room). -Mother given [facility] sheet, the 'Nine Notable Nutrients for ', and she states that she will call the [facility] with any needs, followingher discharge to home. : Jam Emanuel born 05/08/2027 9:35 AM weighed [...] BILINEO No results found for: GLUCPOC , [id number] , FLUABPOC , FLUAPOC , FLUBPOC , HCGURPOC , STREPTAPOC , RAPIDSTREP , RHEUMFACTOR INFANT'S ASSESSMENT: Sucking: sustained, coordinated Tongue: CHASIDY Jaundice: see lab values Blood Sugars Obtained: see lab values Urine Output: see Infant/Peds I/O Flowsheet 7-10% weight loss: no Sleepy/refusing to Breast Feed: no Pacifier Use: yes and Instructed on AAP recommendations to discourage pacifier use for the first 2-4 weeks, until is well established. Twins: no Supplement Device: Bottle Supplement Order: parent preference MOTHER'S ASSESSMENT: Breast Surgery: none Description of Incision/ Scar: none Breast/Chest Trauma: none Nipples: everted Assistance: education and support provided, latch-on verified, suck/swallowverified, encouraged milk expression/pumping Mother's Care and Comfort: Nipple Care: Lanolin per mother PRN Breast Pump Flange Size: 18 mm Total time spent with patient: 21 minutes Amber Ferraro LPN, IBCLC Registered Audio Visual Engineer CH MAKER * Care Plan - Aristides Lao GN - 05/09/2025 4:41 AM CST Bri is progressing as expected. Vital signs, fundus, and lochia within normal limits. Patient was able to void after the removal of the romo. Pain controlled with home medications. Patient has been up all night due to infant wanting to cluster feed and being fussy. [...] provided, and no preventable complications were documented. CH MAKER * Care Plan - Delmis Aguilera RN [...] ranges for the majority of the shift. CH MAKER documented in this encounter Plan of Treatment Upcoming Encounters Date Type Department Care Team (Late st Contact Info) Description 05/18/2025 1:20 PM SWITCH MAKER Office Visit [facility] [phone] [place] [address] Siena Nair, [facility] [address] [place] [phone] 05/25/2025 5:00 PM SWITCH MAKER Telephone Check Up [facility] [address] [place] [address] Laura Rich WILL-CNM [address] [place] [address] 06/18/2025 3:20 PM SWITCH MAKER Office Visit [facility] [address] [place] [address] MichelleLuiza, CNM [address] [place] [address] documented as of this encounter Procedures Procedure Name Priority Date/Time Associated Diagnosis Comments CBC WITH DIFFERENTIAL Routine 05/09/2025 5:44 AM SWITCH MAKER FL DELIVERY ONLY 05/08/2025 9:00 AM SWITCH MAKER HOSP, Primary, Breech, EDC 05/09/25, VERIFICATION BLOOD GROUP Stat 05/08/2025 8:16 AM SWITCH MAKER EXTRA TUBE (GREEN) Routine 05/08/2025 8: 02 AM SWITCH MAKER EXTRA TUBE Routine 05/08/2025 8:02 AM SWITCH MAKER BASIC METABOLIC PANEL Routine 05/08/2025 8:02 AM SWITCH MAKER SYPHILIS SEROLOGY W/REFLEX Routine 05/08/2025 7:58 AM SWITCH MAKER CBC WITHOUT DIFFERENTIAL Routine 05/08/2025 7:58 AM SWITCH MAKER TYPE AND SCREEN Routine 05/08/2025 7:58 AM SWITCH MAKER EXTRA TUBE Routine 05/08/2025 7:18 AM SWITCH MAKER EXTRA TUBE (URINE CONTAINER) Routine 05/08/2025 7:18 AM SWITCH MAKER EXTRA TUBE (URINE CONTAINER) Routine 05/08/2025 7:18 AM SWITCH MAKER documented in this encounter Results * (ABNORMAL) CBC WITH DIFFERENTIAL (05/09/2025 5:44 AM SWITCH MAKER) [facility] Signature WBC 10.5 4.5 - 11.0 K/uL 05/09/2025 6:17 AM [facility] RBC 3.65(L) 4.20 - 5.40 M/uL 05/09/2025 6:17 AM [facility] HEMOGLOBIN 10.9(L) 12.0 - 16.0 g/dL 05/09/2025 6:17 AM [facility] HEMATOCRIT 32.8(L) 36.0 - 46.0 % 05/09/2025 6:17 AM [facility] MCV 89.9 84.0 - 103.0 fL 05/09/2025 6:17 AM [facility] MCH 29.9 27.0 - 34.0 pg 05/09/2025 6:17 AM [facility] MCHC 33.2 30.0 - 35.0 g/dL 05/09/2025 6:17 AM [facility] PLATELETS 163 140 - 440 K/uL 05/09/2025 6:17 AM [facility] MPV 11.3 8.9 - 12.8 fL 05/09/2025 6:17 AM [facility] RDW 13.3 11.0 - 14.5 % 05/09/2025 6:17 AM [facility] RDW-STDEV 43.7 37.0 - 54.0 fL 05/09/2025 6:17 AM [facility] DCMobility [facility] NEUTROPHILS 77(H) 42 - 75 % 05/09/2025 6:17 AM [facility] LYMPHOCYTES 13(L) 24 - 44 % 05/09/2025 6:17 AM [facility] MONOCYTES 8 2 - 10 % 05/09/2025 6:17 AM [facility] DCMobility [facility] EOSINOPHILS 1 0 - 7 % 05/09/2025 6:17 AM [facility] BASOPHILS 1 0 - 1 % 05/09/2025 6:17 AM [facility] IMMATURE GRANULOCYTES 1 0 - 2 % 05/09/2025 6:17 AM [facility] NEUTROPHIL ABSOLUTE 8.06(H) 2.00 - 8.00 K/uL 05/09/2025 6:17 AM [facility] LYMPHOCYTE ABSOLUTE 1.38 1.20 - 4.00 K/uL 05/09/2025 6:17 AM [facility] MONOCYTE ABSOLUTE 0.88(H) 0.10 - 0.60 K/uL 05/09/2025 6:17 AM [facility] EOSINOPHIL ABSOLUTE 0.09 0.00 - 0.70 K/uL 05/09/2025 6:17 AM [facility] BASOPHILS ABSOLUTE 0.05 0.00 - 0.20 K/uL 05/09/2025 6:17 AM [facility] IMMATURE GRANULOCYTES ABSOLUTE 0.05 0.00 - 0.10 K/uL 05/09/2025 6:17 AM [facility] SMEAR REVIEWED: NA - Not Applicable 05/09/2025 6:17 AM [facility] Blood Venipuncture / Unknown 05/09/2025 5:44 AM SWITCH MAKER 05/09/2025 6:10 AM [facility] us Lulu Denton MD HEMATOLOGY ORDERABLES Final R esult [facility] CLIA # [id number] [address] [place] [id number] * VERIFICATION BLOOD GROUP (05/08/2025 8:16 AM [facility]) ABO GROUP O 05/08/2025 8:36 AM [facility] RH (D) TYPE Positive 05/08/2025 8:36 AM [facility] Blood Venipuncture / Unknown 05/08/2025 8:16 AM SWITCH MAKER 05/08/2025 8:19 AM SWITCH MAKER Lulu Denton MD BLOOD BANK ORDERABLES Final R esult [facility] CLIA#[id number] [address] [place] [id number], * (ABNORMAL) BASIC METABOLIC PANEL (05/08/2025 8:02 AM SWITCH MAKER) SODIUM 140 136 - 145 mmol/L 05/08/2025 2:07 PM [facility] POTASSIUM 3.8 3.5 - 5.1 mmol/L 05/08/2025 2:07 PM [facility] CHLORIDE 105 98 - 107 mmol/L 05/08/2025 2:07 PM [facility] CO2 17(L) 22 - 29 mmol/L 05/08/2025 2:07 PM [facility] CALCIUM 9.0 8.6 - 10.0 mg/dL 05/08/2025 2:07 PM [facility] BUN 7 6 - 20 mg/dL 05/08/2025 2:07 PM [facility] CREATININE 0.55 0.51 - 0.95 mg/dL 05/08/2025 2:07 PM [facility] GLUCOSE 92 74 - 99 mg/dL 05/08/2025 2:07 PM [facility] GFR >60 >=60 mL/min/1.7 3 sq meter 05/08/2025 2:07 PM [facility] Comment:eGFR calculated with 2020 CKD-EPI equation. Vegetarian diet, extremely high or low muscle mass, and may affect results. Cystatin C with Glomerular Filtration Rate is a suitable alternative for these patients. ANION GAP 18 9 - 20 mmol/L 05/08/2025 2:07 PM [facility] Blood Venipuncture / Unknown 05/08/2025 8:02 AM SWITCH MAKER 05/08/2025 8:07 AM SWITCH MAKER Codie Cali MD CHEMISTRY ORDERABLES Fi nal Result Performing Organization Address [facility]/ZIP Co de Phone Number [facility] CLIA # [id number] [address] [place] [address] * EXTRA TUBE (GREEN) (05/08/2025 8:02 AM SWITCH MAKER) Blood Venipuncture / Unknown 05/08/2025 8:02 AM SWITCH MAKER 05/08/2025 8:07 AM SWITCH MAKER Lulu Denton MD CHEMISTRY ORDERABLES Final Re sult Performing Organization Address [facility] de Phone Number [facility] CLIA # [id number] [address] [place] [address] * SYPHILIS SEROLOGY W/REFLEX (05/08/2025 7:58 AM SWITCH MAKER) Pathologist [facility] [place] SYPHILIS ANTIBODY TOTAL Non-reacti ve Non-react paras 05/08/2025 10:06 AM SWITCH MAKER [facility] Blood BLOOD SPECIMEN / Unknown Venipuncture / Unknown 05/08/2025 7:58 AM SWITCH MAKER 05/08/2025 8:07 AM SWITCH MAKER Lulu Denton MD CHEMISTRY ORDERABLES Final Re sult Performing Organization Address [facility] Co de Phone Number [facility] CLIA # [id number] [address] [place] [address] * CBC WITHOUT DIFFERENTIAL (05/08/2025 7:58 AM SWITCH MAKER) Pathologist [facility] WBC 10.2 4.5 - 11.0 K/uL 05/08/2025 8:12 AM [facility] RBC 4.45 4.20 - 5.40 M/uL 05/08/2025 8:12 AM [facility] HEMOGLOBIN 13.2 12.0 - 16.0 g/dL 05/08/2025 8:12 AM [facility] HEMATOCRIT 39.5 36.0 - 46.0 % 05/08/2025 8:12 AM [facility] MCV 88.8 84.0 - 103.0 fL 05/08/2025 8:12 AM [facility] MCH 29.7 27.0 - 34.0 pg 05/08/2025 8:12 AM [facility] MCHC 33.4 30.0 - 35.0 g/dL 05/08/2025 8:12 AM [facility] PLATELETS 170 140 - 440 K/uL 05/08/2025 8:12 AM [facility] MPV 11.2 8.9 - 12.8 fL 05/08/2025 8:12 AM [facility] RDW 13.2 11.0 - 14.5 % 05/08/2025 8:12 AM [facility] RDW-STDEV 42.9 37.0 - 54.0 fL 05/08/2025 8:12 AM [facility] Blood Venipuncture / Unknown 05/08/2025 7:58 AM SWITCH MAKER 05/08/2025 8:07 AM [facility] us Lulu Denton MD HEMATOLOGY ORDERABLES Final R esult [facility] CLIA # [id number] [address] [place] [address] [place] [address] * TYPE AND SCREEN (05/08/2025 7:58 AM SWITCH MAKER) ABO GROUP O 05/08/2025 8:53 AM [facility] RH (D) TYPE Positive 05/08/2025 8:53 AM SWITCH MAKER [facility] ANTIBODY SCREEN Negative 05/08/2025 8:53 AM SWITCH MAKER [facility] Blood Venipuncture / Unknown 05/08/2025 7:58 AM SWITCH MAKER 05/08/2025 8:07 AM SWITCH MAKER Lulu Denton MD BLOOD BANK ORDERABLES Edited Result - Final Performing Organization Address [facility]/ZIP Co de Phone Number [facility] [place] CLIA#[id number] [address] [place] [address], * EXTRA TUBE (URINE CONTAINER) (05/08/2025 7:18 AM SWITCH MAKER) Urine URINE SPECIMEN OBTAINED BY CLEAN CATCH PROCEDURE / Unknown Collection / Unknown 05/08/2025 7:18 AM SWITCH MAKER 05/08/2025 7:29 AM SWITCH MAKER Lulu Denton MD URINE ORDERABLES Final Result Performing Organization Address [facility] Co de Phone Number [facility] CLIA # [id number] [address] [facility] [place] [address] * EXTRA TUBE (URINE CONTAINER) (05/08/2025 7:18 AM SWITCH MAKER) Urine URINE SPECIMEN OBTAINED BY CLEAN CATCH PROCEDURE / Unknown Collection / Unknown 05/08/2025 7:18 AM SWITCH MAKER 05/08/2025 7:29 AM SWITCH MAKER Lulu Denton MD URINE ORDERABLES Final Result Performing Organization Address [facility] de Phone Number [facility] DCMobility [facility] CLIA # [id number] [address] [place] [address] documented in this encounter Visit Diagnoses Not on filedocumented in this encounter Administered Medications Inactive Administered Medications - up to 3 most recent administrations Medication Order MAR Action Action Date Dose Rate Site acetaminophen (TYLENOL) tablet 1,000 mg 1,000 mg, Oral, EVERY 8 HOURS, First dose (after last modification) on 05/09/25 at 0500, Until Discontinued, Routine, Post-op - Floor Given 05/10/2025 8:28 AM SWITCH MAKER 1,000 mg Given 05/10/2025 1:49 AM SWITCH MAKER 1,000 mg Given 05/09/2025 4:57 PM SWITCH MAKER 1,000 mg carboprost tromethamine (HEMABATE) 250 mcg/mL [...] 05/10/25 at 1431, Routine, Post-op - Floor enoxaparin (LOVENOX) injection 40 mg 40 mg, subCUT, EVERY 24 HOURS, First dose on 05/09/25 at 0900, Until Discontinued, Routine, Indication: Prophylaxis of VTE (trauma) Given 05/09/2025 9:12 AM SWITCH MAKER 40 mg Abdomen, Right Upper Quadrant ibuprofen (MOTRIN) tablet 600 mg 600 mg, Oral, EVERY 6 HOURS, First dose on Sun05/08/25 at 2200, Until Discontinued, Routine, Post-op - Floor Given 05/10/2025 6:02 AM SWITCH MAKER 600 mg Given 05/09/2025 11:09 PM SWITCH MAKER 600 mg Given 05/09/2025 4:57 PM SWITCH MAKER 600 mg magnesium HYDROXIDE (MILK OF MAGNESIA) oral suspension [...] Post-op - Floor Given 05/08/2025 12:18 PM SWITCH MAKER 0.2 mg Thigh, Left miSOPROStol (CYTOTEC) tablet [...] then stop Rate Verify 05/08/2025 12:57 PM SWITCH MAKER 3.6 Units/hr 60 mL/hr New Bag 05/08/2025 12:29 PM SWITCH MAKER 3.6 Units/hr 60 mL/hr Rate Change 05/08/2025 10:48 AM SWITCH MAKER 3.6 Units/hr 60 mL/hr oxytocin (PITOCIN) 30 [...] Post-op - Floor Given 05/08/2025 9:00 PM SWITCH MAKER 10 mL sodium chloride flush injection 10 [...] Recently Administered Medications Times are shown in SWITCH MAKER. Scheduled Medication Order 05/08/2025 05/09/2025 05/10/2025 acetaminophen (TYLENOL) tablet 1,000 mg (CANCELED) 1,000 mg, Oral, EVERY 6 HOURS, First dose (after last modification) on Sun05/08/25 at 1545, Until Discontinued, Routine, Post-op - Floor 1545 (Given - Provider: Delmis Aguilera RN) acetaminophen (TYLENOL) tablet 1,000 mg 1,000 mg, Oral, EVERY 8 HOURS, First dose (after last modification) on 05/09/25 at 0500, Until Discontinued, Routine, Post-op - Floor 2356 (Given - Provider: LUCRECIA Lucia) 0912 (Given - Provider: Delmis Aguilera RN)1657 (Given - Provider: Delmis Aguilera RN)2100 (Not [...] 0927, Routine, Pre-op, Antibiotic Indication: Surgical prophylaxis 0922 (New Bag - Provider: Mar Bautista CRNA)0927 (Stopped - Provider: Mar Bautista CRNA) dextrose 5 % in water 250 mL flush bag 25 mL 25 mL, IV, SEE ADMIN INSTRUCTIONS, Starting on Sun05/08/25 at 1350, Until 05/10/25 at 1431, Routine, Post-op - Floor enoxaparin (LOVENOX) injection 40 mg 40 mg, subCUT, EVERY 24 HOURS, First dose on 05/09/25 at 0900, Until Discontinued, Routine, Indication: [...] INSTRUCTIONS, Starting on Sun05/08/25 at 0956, Until Sun05/10/25 at 1431, Routine oxytocin (PITOCIN) 30 units [...] (New Bag - Provider: Mar Bautista CRNA)1017 ([place] - Provider: Maritza Olivera RN)1048 (Rate Change - Provider: Maritza Olivera RN)1229 (New Bag - Provider: Maritza Olivera, [...] Sun05/10/25 at 1431, Routine, Post-op - Floor vit-iron [...] Sun05/10/25 at 1431, Routine, Post-op - Floor sodium chloride flush injection 10 mL 10 mL, IV, EVERY 12 HOURS (BID), First dose on Sun05/08/25 at 1400, Until Discontinued, Routine, Post-op - Floor 1400 (Due)2100 (Given - Provider: LUCRECIA Lucia - Comment: flushed) 0900 (Canceled Entry - Provider: Delmis Aguilera RN - Comment: IP removed)2099 (Not Given - Provider: LUCERCIA Lucia - Reason: Route not available) 0900 [...] Mar Bautista CRNA)1015 (Stopped - Provider: Maritza Olivera, RN) PRN Medication Order 05/08/2025 05/09/2025 05/10/2025 [...] - Floor 1218 (Given - Provider: Maritza Olivera, RN)1434 (Due) miSOPROStol (CYTOTEC) tablet 800 mcg(Linked [...] PRN, 1 dose, Starting on 05/08/25 at 1350, Until 05/10/25 at 1431, Other (See Comment), see admin instructions, Routine, Post-op - Floor prochlorperazine maleate (COMPAZINE) tablet 10 mg 10 mg, Oral, EVERY 6 HOURS PRN, Starting on 05/09/25 at 1350, Until 05/10/25 at 1431, Nausea/Emesis, Routine, Post-op - Floor simethicone chewable tablet 80 mg 80 mg, Oral, EVERY 6 HOURS PRN, Starting on 05/08/25 at 1350, Until 05/10/25 at 1431, Gas, [...] dose, Starting on Sun05/08/25 at 0713, Until Sun05/10/25 at 1431, Other (See Comment), [...] 05/10/25 at 1431, Routine, Post-op - Floor And [...]
--- OUTSIDE RECORDS SUMMARY | 2025-05-14 18:30 | XMS_ITS | Encounter Summary ---
Author Organization [facility] Address [address] [place]: Epic Prelude ADT JADIEL [place] [phone] Care Team Providers Care Model Engine Mechanic Name Role Phone Unavailable Primary Care Provider Unavailabl e Encounter Details Date Type Department Care Team (Latest Contact Info) Description 05/08/2025 Travel Social History Tobacco Use Types Packs/Day Years [...] worry about transportation for future doctor visits, supervisor assembling medication, etc.? No 2024 Housing Stability Answer [...] on file documented as of this encounter Plan of Treatment Upcoming Encounters Date Type Department Care Team (Late st Contact Info) Description 05/18/2025 1:20 PM MACHINE BANDER AND CELLOPHANER HELPER Office Visit [facility] [phone] [place] [address] Siena Nair, [facility] [address] [place] [phone] 05/25/2025 5:00 PM MACHINE BANDER AND CELLOPHANER HELPER [facility] [address] [place] [address] Laura Rich APRN-[facility] [address] [place] [phone] 06/18/2025 3:20 PM MACHINE BANDER AND CELLOPHANER HELPER Office Visit [facility] [address] [place] [address] Luiza Martinez [facility] [address] [place] [phone] documented as of this encounter Visit Diagnoses Not on filedocumented in this encounter
[2025-05-14 18:31] VITALS: BP 121/79; PULSE 87; RESP 16; TEMP 36.8; O2SAT 99; BMI 40.9
--- OUTSIDE RECORDS SUMMARY | 2025-05-14 18:31 | XMS_ITS | Clinical Summary ---
Author Organization [facility] [place] Address [address] [address] Care Team Providers Care Supplier Manager Name Role Phone Unavailable Primary Care Provider Unavailabl e Allergies No known active allergies Medications VIT-IRON FUM-FOLIC AC ORAL Take by mouth daily. Active oxyCODONE (ROXICODONE) 5 mg tabletIndication s:S/P section Take 1 Tablet (5 mg) by mouth every 4 hours as needed for Pain. Max Daily Amount: 30 mg 20 Tablet 05/10/2025 11:59 AM GAS CONTROLLER 05/10/2025 Active ibuprofen (MOTRIN) 800 mg tablet Take 1 Tablet (800 mg) by mouth every 8 hours as needed for Pain, Mild. 30 Tablet 1 05/10/2025 Active Active Problems Problem Noted Date Diagnosed Date S/P section 05/10/2025 Breech 05/08/2025 care, subsequent in third [facility] 05/05/2025 Breech presentation 04/20/2025 Obesity (BMI 35.0-39.9 without comorbidity) 01/21 Encounters Date Type Department Care Team Description 05/14/2025 Mobile Encounter [facility] [address] [address] [place] [phone] Laura Rich APRN-CNM 05/12/2025 External Device Data STL ABSTRACTION Provider, Abstract 05/12/2025 External Device Data STL ABSTRACTION Provider, Abstract 05/12/2025 External Device Data STL ABSTRACTION Provider, Abstract 05/08/2025 9:00 AM GAS CONTROLLER - 05/08/2025 10:37 AM GAS CONTROLLER Surgery [facility] [address] [place] [address] Sami Denton MD SECTION 05/08/2025 8:47 AM GAS CONTROLLER Anesthesia Event [facility] [address] [place] [address] Kimberly Polk MD 05/08/2025 7:02 AM GAS CONTROLLER - 05/10/2025 12:16 PM GAS CONTROLLER Hospital Encounter [facility] [address] [place] [address] Sami Denton MD Johnson, Codie Trujillo MD Breech Discharge Disposition: Home or Self Care 05/08/2025 Travel 05/07/2025 Telephone [facility] [address] [place] [address] Sami Denton MD Appointment reminder (Spoke with Nicki and went over the info for her about her procedure, she did ask about Jewelery and toenail solomon islander and we told her That toenail solomon islander was ok and Jewelery needs to be removed) 05/05/2025 3:00 PM GAS CONTROLLER visit [facility] [address] [address] Luiza Vitale CNM 39 weeks gestation of (Primary Dx); Breech presentation, single or unspecified fetus; care, subsequent in third trimester 04/28/2025 3:20 PM GAS CONTROLLER visit [facility] [address] [address] Luiza Vitale CNM Breech presentation, single or unspecified fetus (Primary Dx); 38 weeks gestation of ; Influenza vaccination declined 04/22/2025 5:15 AM GAS CONTROLLER - 04/22/2025 7:40 AM GAS CONTROLLER Hospital Encounter [facility] [address] [place] [phone] Codie Cali MD Breech presentation Discharge Disposition: Home or Self Care 04/22/2025 Travel 04/20/2025 1:00 PM GAS CONTROLLER Ancillary Procedure [facility] [address], [address] [place] [phone] Luiza Vitale CNM Fraser II, Robert F, MD Morbid obesity with body mass index of 40.0-49.9 ([facility]); Maternal obesity syndrome in third trimester; Supervision of high risk in third trimester; Obesity during , antepartum, third trimester; Obesity with body mass index 30 or greater; Encounter for follow-up ultrasound of anatomy 04/20/2025 10:20 AM GAS CONTROLLER visit [facility] [address] [facility] [address] [place] [address] Siena Nair CNM 37 weeks gestation of (Primary Dx); Influenza vaccination declined; Breech presentation, single or unspecified fetus 04/15/2025 Orders Only [facility] [address] [facility] [address] [place] [address] Orin Pinedo Morbid obesity with body mass index of 40.0-49.9 ([facility]) (Primary Dx); Maternal obesity syndrome in third trimester; Supervision of high risk in third trimester 04/14/2025 4:40 PM GAS CONTROLLER visit [facility] [address] [place] [address] Luiza Vitale CNM 36 weeks gestation of (Primary Dx); care, subsequent , third trimester; Influenza vaccination declined 03/31/2025 1:00 PM GAS CONTROLLER visit [facility] [address] [place] [address] Laura Rich APRN-CNM 34 weeks gestation of (Primary Dx); Obesity (BMI 35.0-39.9 without comorbidity) 03/11/2025 External Device Data STL ABSTRACTION Provider, Abstract 03/03/2025 1:40 PM CDT visit [facility] [address] [place] [address] Eli Sanders CNM 30 weeks gestation of (Primary Dx); Obesity in , antepartum; Urinary incontinence, unspecified type 02/24/2025 External Device Data STL ABSTRACTION Provider, Abstract 02/24/2025 External Device Data STL ABSTRACTION Provider, Abstract 02/24/2025 External Device Data STL ABSTRACTION Provider, Abstract 02/17/2025 3:00 PM CDT Initial [facility] [address] [place] [address] Laura Rich APRN-CNM 28 weeks gestation of (Primary Dx); care, subsequent , third trimester; Obesity (BMI 35.0-39.9 without comorbidity) from Last 3 Months Family History Medical History Relation Name Comments Breast Cancer Maternal Grandmother Breast Cancer Paternal Grandmother Relation Name Status Comments Maternal Grandmother Paternal Grandmother Social History Tobacco Use Types Packs/Day Years Used Date Smoking Tobacco: Never Smokeless Tobacco: Never Tobacco Cessation:Counseling Given: No Alcohol Use Standard Drinks/Week Comments Not Currently [...] worry about transportation for future doctor visits, curing pickling packer medication, etc.? No 2024 Housing Stability Answer [...] on file Sexual Orientation Not on file Last Filed Vital Signs Vital Sign Reading Time Taken Comments Blood Pressure 131/78 05/10/2025 9:00 AM GAS CONTROLLER Pulse 79 05/10/2025 9:00 AM GAS CONTROLLER Temperature 36.6 C (97.9 F) 05/10/2025 9:00 AM GAS CONTROLLER Respiratory Rate 16 05/10/2025 9:00 AM GAS CONTROLLER Oxygen Saturation 98% 05/10/2025 9:00 AM GAS CONTROLLER Inhaled Oxygen Concentration - - Weight 139.5 kg (307 lb 9.6 oz) 05/09/2025 4:15 AM GAS CONTROLLER Height 182.9 cm (6') 05/08/2025 1:14 PM GAS CONTROLLER Body Mass Index 41.72 05/08/2025 1:14 PM GAS CONTROLLER Plan of Treatment Upcoming Encounters Date Type Department Care Team (Late st Contact Info) Description 05/18/2025 1:20 PM GAS CONTROLLER Office Visit [facility] [address] [place] [address] Siena Nair CN [address] [place] [phone] 05/25/2025 5:00 PM GAS CONTROLLER Telephone Check Up [facility] [address] [place] [address] Laura Rich APRN-CNM [address] [place] [address] 06/18/2025 3:20 PM GAS CONTROLLER Office Visit [facility] [address] [place] [address] Luiza Vitale, CNM [address] [place] [phone] Health Maintenance Due Date Last Done Comments DTAP/TDAP/TD VACCINES (1 - Tdap) 2017 HEPATITIS B VACCINES (1 of 3 - 19+ 3-dose series) 03/22 CERVICAL CANCER SCREENING 2019 HPV/Cotest (21-29) 2019 PAP SMEAR 2019 Preventative Visit- Commercial 05/21/2024 INFLUENZA VACCINE (#1) 2024 HPV VACCINES (No Doses Required) Completed Procedures Procedure Name Priority Date/Time Associated Diagnosis Comments CBC WITH DIFFERENTIAL Routine 05/09/2025 5:44 AM GAS CONTROLLER MT ANESTHESIA BLOCK PB PLACEHOLDER CHARGE Routine 05/08/2025 9:35 AM GAS CONTROLLER MT DELIVERY ONLY 05/08/2025 9:00 AM GAS CONTROLLER HOSP, Primary, Breech, EDC 05/09/25, VERIFICATION BLOOD GROUP Stat 05/08/2025 8:16 AM GAS CONTROLLER BASIC METABOLIC PANEL Routine 05/08/2025 8:02 AM GAS CONTROLLER EXTRA TUBE (GREEN) Routine 05/08/2025 8: 02 AM GAS CONTROLLER EXTRA TUBE Routine 05/08/2025 8:02 AM GAS CONTROLLER TYPE AND SCREEN Routine 05/08/2025 7:58 AM GAS CONTROLLER SYPHILIS SEROLOGY W/REFLEX Routine 05/08/2025 7:58 AM GAS CONTROLLER CBC WITHOUT DIFFERENTIAL Routine 05/08/2025 7:58 AM GAS CONTROLLER EXTRA TUBE (URINE CONTAINER) Routine 05/08/2025 7:18 AM GAS CONTROLLER EXTRA TUBE (URINE CONTAINER) Routine 05/08/2025 7:18 AM GAS CONTROLLER EXTRA TUBE Routine 05/08/2025 7:18 AM GAS CONTROLLER BLOOD BANK DRAW ONLY Routine 04/22/2025 5:56 AM GAS CONTROLLER CBC WITHOUT DIFFERENTIAL Routine 04/22/2025 5:56 AM GAS CONTROLLER EXTRA TUBE (URINE CONTAINER) Stat 04/22/2025 5:39 AM GAS CONTROLLER EXTRA TUBE (URINE CONTAINER) Stat 04/22/2025 5:39 AM GAS CONTROLLER EXTRA TUBE Stat 04/22/2025 5:39 AM GAS CONTROLLER US OB FU + NST Routine 04/20/2025 12:52 PM GAS CONTROLLER Supervision of high risk in third trimester Obesity during , antepartum, third trimester Obesity with body mass index 30 or greater Encounter for follow-up ultrasound of anatomy (BROTH-ENRICHED) GROUP B STREP DETECTION Routine 04/14/2025 5:05 PM GAS CONTROLLER 36 weeks gestation of care, subsequent , third trimester GLUCOSE TOLERANCE 1 HR GESTATIONAL Routine 03/03/2025 1:40 PM CDT care, subsequent , third trimester from Last 3 Months Results * (ABNORMAL) CBC WITH DIFFERENTIAL (05/09/2025 5:44 AM GAS CONTROLLER) WBC 10.5 4.5 - 11.0 K/uL 05/09/2025 6:17 AM GAS CONTROLLER [facility] RBC 3.65(L) 4.20 - 5.40 M/uL 05/09/2025 6:17 AM GAS CONTROLLER [facility] HEMOGLOBIN 10.9(L) 12.0 - 16.0 g/dL 05/09/2025 6:17 AM GAS CONTROLLER [facility] HEMATOCRIT 32.8(L) 36.0 - 46.0 % 05/09/2025 6:17 AM [facility] MCV 89.9 84.0 - 103.0 fL 05/09/2025 6:17 AM [facility] MCH 29.9 27.0 - 34.0 pg 05/09/2025 6:17 AM [facility] MCHC 33.2 30.0 - 35.0 g/dL 05/09/2025 6:17 AM [facility] PLATELETS 163 140 - 440 K/uL 05/09/2025 6:17 AM [facility] MPV 11.3 8.9 - 12.8 fL 05/09/2025 6:17 AM [facility] RDW 13.3 11.0 - 14.5 % 05/09/2025 6:17 AM [facility] RDW-STDEV 43.7 37.0 - 54.0 fL 05/09/2025 6:17 AM [facility] NEUTROPHILS 77(H) 42 - 75 % 05/09/2025 6:17 AM [facility] LYMPHOCYTES 13(L) 24 - 44 % 05/09/2025 6:17 AM [facility] MONOCYTES 8 2 - 10 % 05/09/2025 6:17 AM [facility] EOSINOPHILS 1 0 - 7 % 05/09/2025 6:17 AM [facility] BASOPHILS 1 0 - 1 % 05/09/2025 6:17 AM [facility] IMMATURE GRANULOCYTES 1 0 - 2 % 05/09/2025 6:17 AM [facility] NEUTROPHIL ABSOLUTE 8.06(H) 2.00 - 8.00 K/uL 05/09/2025 6:17 AM [facility] LYMPHOCYTE ABSOLUTE 1.38 1.20 - 4.00 K/uL 05/09/2025 6:17 AM [facility] MONOCYTE ABSOLUTE 0.88(H) 0.10 - 0.60 K/uL 05/09/2025 6:17 AM [facility] EOSINOPHIL ABSOLUTE 0.09 0.00 - 0.70 K/uL 05/09/2025 6:17 AM [facility] BASOPHILS ABSOLUTE 0.05 0.00 - 0.20 K/uL 05/09/2025 6:17 AM [facility] IMMATURE GRANULOCYTES ABSOLUTE 0.05 0.00 - 0.10 K/uL 05/09/2025 6:17 AM GAS CONTROLLER [facility] SMEAR REVIEWED: NA - Not Applicable 05/09/2025 6:17 AM GAS CONTROLLER [facility] Blood Venipuncture / Unknown 05/09/2025 5:44 AM GAS CONTROLLER 05/09/2025 6:10 AM GAS CONTROLLER us Sami Denton MD HEMATOLOGY ORDERABLES Final R esult [facility] CLIA # [id number] [address] [address] [place] [address] * MT ANESTHESIA BLOCK PB PLACEHOLDER CHARGE (05/08/2025 9:35 AM GAS CONTROLLER) Narrative Kimberly Polk MD - 05/08/2025 9:35 AM GAS CONTROLLER Kimberly Polk MD 05/08/2025 9:35 AM Spinal [...] Approach: Midline Location: L3-4 Injection Technique: Single-shot Storla Identification: palpation technique Number of Attempts: 1 [...] position. Kimberly Polk MD PROCEDURE/MINOR SURGICAL ORDE RABLES Final Result * VERIFICATION BLOOD GROUP (05/08/2025 8:16 AM GAS CONTROLLER) ABO GROUP O 05/08/2025 8:36 AM GAS CONTROLLER [facility] [place] RH (D) TYPE Positive 05/08/2025 8:36 AM GAS CONTROLLER [facility] [place] Blood Venipuncture / Unknown 05/08/2025 8:16 AM GAS CONTROLLER 05/08/2025 8:19 AM GAS CONTROLLER Sami Denton MD BLOOD BANK ORDERABLES Final R esult Performing Organization Address [facility] Co de Phone Number [facility] CLIA#[id number] [facility] [phone] * EXTRA TUBE (GREEN) (05/08/2025 8:02 AM GAS CONTROLLER) Blood Venipuncture / Unknown 05/08/2025 8:02 AM GAS CONTROLLER 05/08/2025 8:07 AM GAS CONTROLLER Sami Denton MD CHEMISTRY ORDERABLES Final Re sult Performing Organization Address [facility] de Phone Number [facility] CLIA # [id number] [address] [place] [address] * (ABNORMAL) BASIC METABOLIC PANEL (05/08/2025 8:02 AM GAS CONTROLLER) SODIUM 140 136 - 145 mmol/L 05/08/2025 2:07 PM GAS CONTROLLER [facility] POTASSIUM 3.8 3.5 - 5.1 mmol/L 05/08/2025 2:07 PM [facility] CHLORIDE 105 98 - 107 mmol/L 05/08/2025 2:07 PM [facility] CO2 17(L) 22 - 29 mmol/L 05/08/2025 2:07 PM [facility] CALCIUM 9.0 8.6 - 10.0 mg/dL 05/08/2025 2:07 PM [facility] BUN 7 6 - 20 mg/dL 05/08/2025 2:07 PM [facility] CREATININE 0.55 0.51 - 0.95 mg/dL 05/08/2025 2:07 PM [facility] GLUCOSE 92 74 - 99 mg/dL 05/08/2025 2:07 PM [facility] GFR >60 >=60 mL/min/1.7 3 sq meter 05/08/2025 2:07 PM [facility] Comment:eGFR calculated with 2020 CKD-EPI equation. Vegetarian diet, extremely high or low muscle mass, and may affect results. Cystatin C with Glomerular Filtration Rate is a suitable alternative for these patients. ANION GAP 18 9 - 20 mmol/L 05/08/2025 2:07 PM [facility] Blood Venipuncture / Unknown 05/08/2025 8:02 AM GAS CONTROLLER 05/08/2025 8:07 AM GAS CONTROLLER Codie Cali MD CHEMISTRY ORDERABLES Fi nal Result [facility] CLIA # [id number] [address] [place] [id number] * SYPHILIS SEROLOGY W/REFLEX (05/08/2025 7:58 AM GAS CONTROLLER) SYPHILIS ANTIBODY TOTAL Non-reacti ve Non-react paras 05/08/2025 10:06 AM [facility] Blood BLOOD SPECIMEN / Unknown Venipuncture / Unknown 05/08/2025 7:58 AM GAS CONTROLLER 05/08/2025 8:07 AM GAS CONTROLLER us Sami Denton MD CHEMISTRY ORDERABLES Final Re sult [facility] CLIA # [id number] [address] [place] [address] * CBC WITHOUT DIFFERENTIAL (05/08/2025 7:58 AM GAS CONTROLLER) Only the most recent of2 resultswithin the time period is included. WBC 10.2 4.5 - 11.0 K/uL 05/08/2025 8:12 AM [facility] RBC 4.45 4.20 - 5.40 M/uL 05/08/2025 8:12 AM [facility] HEMOGLOBIN 13.2 12.0 - 16.0 g/dL 05/08/2025 8:12 AM [facility] HEMATOCRIT 39.5 36.0 - 46.0 % 05/08/2025 8:12 AM [facility] MCV 88.8 84.0 - 103.0 fL 05/08/2025 8:12 AM [facility] MCH 29.7 27.0 - 34.0 pg 05/08/2025 8:12 AM [facility] MCHC 33.4 30.0 - 35.0 g/dL 05/08/2025 8:12 AM [facility] PLATELETS 170 140 - 440 K/uL 05/08/2025 8:12 AM [facility] MPV 11.2 8.9 - 12.8 fL 05/08/2025 8:12 AM [facility] RDW 13.2 11.0 - 14.5 % 05/08/2025 8:12 AM [facility] RDW-STDEV 42.9 37.0 - 54.0 fL 05/08/2025 8:12 AM [facility] Blood Venipuncture / Unknown 05/08/2025 7:58 AM GAS CONTROLLER 05/08/2025 8:07 AM GAS CONTROLLER Sami Denton MD HEMATOLOGY ORDERABLES Final R esult Performing Organization Address [facility] Co de Phone Number [facility]mos [facility] CLIA # [id number] [address] [facility] [place] [address] * TYPE AND SCREEN (05/08/2025 7:58 AM GAS CONTROLLER) ABO GROUP O 05/08/2025 8:53 AM GAS CONTROLLER [facility] [place] RH (D) TYPE Positive 05/08/2025 8:53 AM GAS CONTROLLER [facility] [place] ANTIBODY SCREEN Negative 05/08/2025 8:53 AM GAS CONTROLLER [facility] [place] Blood Venipuncture / Unknown 05/08/2025 7:58 AM GAS CONTROLLER 05/08/2025 8:07 AM GAS CONTROLLER Sami Denton MD BLOOD BANK ORDERABLES Edited Result - Final Performing Organization Address [facility] Co de Phone Number [facility] CLIA#[id number] [address] [place] [address], * EXTRA TUBE (URINE CONTAINER) (05/08/2025 7:18 AM GAS CONTROLLER) Only the most recent of4 resultswithin the time period is included. Urine URINE SPECIMEN OBTAINED BY CLEAN CATCH PROCEDURE / Unknown Collection / Unknown 05/08/2025 7:18 AM GAS CONTROLLER 05/08/2025 7:29 AM GAS CONTROLLER Sami Denton MD URINE ORDERABLES Final Result Performing Organization Address [facility] Co de Phone Number [facility]mos [facility] CLIA # [id number] [address] [facility] [place] [address] * BLOOD BANK DRAW ONLY (04/22/2025 5:56 AM GAS CONTROLLER) SPECIMEN HOLD, BLOOD Order Complete 04/22/2025 8:49 AM GAS CONTROLLER [facility] Blood Venipuncture / Unknown 04/22/2025 5:56 AM GAS CONTROLLER 04/22/2025 6:01 AM GAS CONTROLLER us Codie Cali MD BLOOD BANK ORDERABLES F inal Result [facility] CLIA#[id number] [address] [place] [address], * US OB FU + NST (04/20/2025 12:52 PM GAS CONTROLLER) Anatomical Region Laterality Modality Pelvis Ultrasound 04/20/2025 12:2 3 PM GAS CONTROLLER Narrative 04/20/2025 1:08 PM [facility] FOLLOW UP ----- Pat. Name: NICKI EMANUEL Study Date: 04/20/2025 12:23pm Pat. NO: [id number] Referring MD: LUIZA VITALE Site: [facility] Telephone Repairer: Selina Reis : 2000 Age: 25 ----- INDICATION ----- Supervision of high risk , unspecified, Supervision of high risk in third trimester [O09.93 (ICD-10-CM)] third trimester Obesity Complicating Obesity during , antepartum, third trimester [O99.213 (ICD-10-CM)]; Obesity with body mass index 30 or greater [E66.9 (ICD-10-CM)] Screening Follow-Up Encounter for follow-up ultrasound of anatomy [Z36.2 (ICD-10-CM)]- CM, NF, neck, upper lip, coronal face CODING ----- Diagnoses Z3A.37: Weeks of gestation Z36.2: Encounter for other screening follow-up O99.213: Obesity complicating O09.893: Supervision of other high risk pregnancies O09.93: Supervision of high risk , unspecified, third trimester Procedures 93799: Ultrasound, uterus, real time with image documentation, follow up, transabdominal approach per fetus 12971: NST/ monitoring HISTORY ----- OB History 2. Para 1 METHOD ----- EFM. Transabdominal ultrasound examination. View: Adequate visualization ----- Rus[place] . Number of fetuses: 1 DATING ----- Method of dating: based on stated FLAQUITA GA by prior assessment 37 w + 2 d FLAQUITA by prior assessment: 05/09/2025 Ultrasound examination on: 04/20/2025 GA by U/S based upon: AC, BPD, EFW, Femur, HC GA by U/S 37 w + 3 d FLAQUITA by U/S: 05/08/2025 Assigned: based on stated FLAQUITA, selected on 04/20/2025 Assigned GA 37 w + 2 d Assigned FLAQUITA: 05/09/2025 BIOMETRY ----- BPD 89.0 mm 36w 0d 31% Hadlock OFD 125.3 mm -/- >99% Rush HC 347.3 mm 40w 2d 89% Hadlock AC 328.1 mm 36w 5d 49% Hadlock Femur 71.4 mm 36w 4d 32% Hadlock HC / AC 1.06 78% Nicolaides Weight Calculation: EFW 3,085 g 37w 2d 50% Hadlock EFW (lb,oz) 6 lb 13 oz EFW by Hadlock ([id number]) Head / Face / Neck Biometry: Mold Maker Plastic Molds 5.0 mm CM 7.5 mm 47% Nicolaides Extremities / Bony Struc Biometry: FL / BPD 0.80 FL / HC 0.21 FL / AC 0.22 GENERAL EVALUATION ----- Cardiac activity present. FHR 143 bpm. movements: visualized. Presentation: breech Placenta: Placental site: posterior Amniotic fluid: MVP 7.7 cm ANATOMY ----- The following structures appear normal: Cisterna magna. Face. Nose. Lips. 4-chamber view. Stomach. Kidneys. Bladder. The following structures could not be adequately visualized: Neck. NON STRESS TEST ----- NST interpretation: reactive, Variability: moderate. Baseline FHR 125 bpm. Accelerations: Present. Decelerations: Not present IMPRESSION ----- Findings Comment Estimated weight is appropriate for gestational age Reassuring modified biophysical profile abnormalities are not identified morphology examination was performed at other facility. A limited morphology examination was performed today. GROWTH OVERVIEW ----- Exam date GA BPD (mm) HC (mm) AC (mm) FL (mm) HL (mm) EFW (g) 04/20/2025 37w 2d 89.0 31% 347.3 89% 328.1 49% 71.4 32% 3,085 50% Procedure Note Cassius Lester II, MD - 04/20/2025 [place] FOLLOW UP ----- Pat. Name:Ayan EMANUEL Date:04/20/2025 12:23pm Pat. NO: [id number] MD:LUIZA VITALE Site:Conception MFMTonographer:Selina Reis :2000Age:25 ----- INDICATION ----- Supervision of high risk , unspecified, Supervision of highrisk in third trimester [O09.93 (ICD-10-CM)] third trimester Obesity Complicating Obesity duringpregnancy, antepartum, third trimester [O99.213 (ICD-10-CM)]; Obesity with bodymass index 30 or greater [E66.9 (ICD-10-CM)] Screening Follow-Up Encounter forfollow-up ultrasound of anatomy [Z36.2 (ICD-10-CM)]- CM, NF, neck, upper lip,coronal face CODING ----- Diagnoses Z3A.37: Weeks of gestation Z36.2: Encounter for other screeningfollow-up O99.213: Obesity complicating O09.893: Supervision of other high riskpregnancies O09.93: Supervision of high risk ,unspecified, third trimester Procedures 17619: Ultrasound, uterus, real time withimage documentation, follow up, transabdominal approach per fetus 81482: NST/ monitoring HISTORY ----- OB History 2. Para 1 METHOD ----- EFM. Transabdominal ultrasound examination. View: Adequate visualization ----- Rus[place] . Number of fetuses: 1 DATING ----- Method of dating:based on stated FLAQUITA GA by prior [id number] w + 2 d FLAQUITA by prior assessment:05/09/2025 Ultrasound examination on:04/20/2025 GA by U/S based upon:AC, BPD, EFW, Femur, HC GA by U/S37 w + 3 d FLAQUITA by U/S:05/08/2025 Assigned:based on stated FLAQUITA, selected on 04/20/2025 Assigned GA37 w + 2 d Assigned FLAQUITA:05/09/2025 BIOMETRY ----- BPD 89.0 mm 36w 0d 31%Hadlock OFD 125.3 mm -/- >99%Rush HC 347.3 mm 40w 2d 89%Hadlock AC 328.1 mm 36w 5d 49%Hadlock Femur 71.4 mm 36w 4d 32%Hadlock HC / AC 1.06 78%Nicolaides Weight Calculation: EFW 3,085 g 37w 2d50% Hadlock EFW (lb,oz) 6 lb 13 oz EFW by Hadlock ([id number]) Head / Face / Neck Biometry: Mold Maker Plastic Molds 5.0 mm CM 7.5 mm 47%Nicolaides Extremities / Bony Struc Biometry: FL / BPD 0.80 FL / HC 0.21 FL / AC 0.22 GENERAL EVALUATION ----- Cardiac activity present. FHR 143 bpm. movements: visualized.Presentation: breech Placenta: Placental site: posterior Amniotic fluid: MVP 7.7 cm ANATOMY ----- The following structures appear normal: Cisterna magna. Face. Nose. Lips. 4-chamber view. Stomach. Kidneys. Bladder. The following structures could not be adequately visualized: Neck. NON STRESS TEST ----- NST interpretation: reactive, Variability: moderate. Baseline FHR 125 bpm.Accelerations: Present. Decelerations: Not present IMPRESSION ----- Findings Comment Estimated weight is appropriate for gestational age Reassuring modified biophysical profile abnormalities are not identified morphologyexamination was performed at other facility. A limited morphologyexamination was performed today. GROWTH OVERVIEW ----- Exam date GA BPD (mm) HC (mm) AC (mm) FL(mm) HL (mm) EFW (g) 04/20/2025 37w 2d 89.0 31% 347.3 89% 328.1 49%71.4 32% 3,085 50% Luiza [facility] ORDERABLES Final Result * (BROTH-ENRICHED) GROUP B STREP DETECTION (04/14/2025 5:05 PM GAS CONTROLLER) SOURCE *VAGINAL/REC HETAL [facility] GROUP B STREP BY PCR NOT DETECTED NOT DETECTED [facility] Comment: Note per CDC guidelines optimal recovery is achieved by swabbing both the lower vagina and rectum (through the anal sphincter). Test Performed at: [facility] [id number] [place] [address] Jd Bradley MD Genital (Vaginal/rectal) 04/14/2025 5:05 PM GAS CONTROLLER 04/15/2025 2:53 AM GAS CONTROLLER Luiza Vitale CNM MICROBIOLOGY - GENERAL ORDER KAYLAN Final Result [facility] [address] [phone] [facility] [address] [place] [address] * GLUCOSE TOLERANCE 1 HR GESTATIONAL (03/03/2025 1:40 PM CDT) GLUCOSE 1 HR OBSTETRIC 123 <135 mg/dL [facility] Comment: FASTING:NO FASTING: NO Test Performed at: [facility] [address] [place] [address] Jd Bradley MD Blood 03/03/2025 1:40 PM CDT 03/03/2025 1:40 PM CDT Laura MORAN CHEMISTRY ORDERABLES F inal Result [facility] [address] [phone] [facility] [address] [place] [address] from Last 3 Months Insurance [employer] [id number] RX [employer] RX Member Subscriber Plan / Payer (Ef fective 2025-Present) Name:Nicki Emanuel Relation to Subscriber:Self Name:Nicki Emanuel Swapna Payer ID:Not on file Group ID:[id number] Type:RX Commercial Address: [address] Advance Directives For more information, please contact: [phone] * Full Code (Latest Code Status on File) Date Activated Date Inactivated Comments 05/08/2025 1:50 PM 05/10/2025 2:36 PM * Full Code Date Activated Date Inactivated Comments 05/08/2025 7:15 AM 05/08/2025 1:50 PM * Full Code Date Activated Date Inactivated Comments 04/22/2025 5:37 AM 04/22/2025 10:07 AM
--- OUTSIDE RECORDS SUMMARY | 2025-05-14 18:31 | XMS_ITS | Encounter Summary ---
Author Organization [facility] Address [address] [place] [address] Care Team Providers Care Manager Food Beverage Name Role Phone Unavailable Primary Care Provider Unavailabl e Encounter Details Date Type Department Care Team (Late st Contact Info) Description 05/12/2025 External Device Data STL ABSTRACTION Provider, Abstract NO ADDRESS ON FILE Social History Tobacco Use Types Packs/Day Years [...] worry about transportation for future doctor visits, pick up and delivery driver medication, etc.? No 2024 Housing Stability Answer [...] st Contact Info) Description 05/18/2025 1:20 PM VALUE ADVISOR Office Visit [facility] [address] [place] [address] Siena Nair, [facility] [address] [place] [address] 05/25/2025 5:00 PM VALUE ADVISOR Telephone [facility] [address] [place] [address] Laura [facility] [address] [place] [address] 06/18/2025 3:20 PM VALUE ADVISOR Office Visit [facility] [address] [place] [address] Luiza Martinez [facility] [address] [place] [address] documented as of this encounter Visit Diagnoses Not on filedocumented in this encounter
--- OUTSIDE RECORDS SUMMARY | 2025-05-14 18:31 | XMS_ITS | Encounter Summary ---
Author Organization [facility] Address [address] [place] [address] Care Team Providers Care Grit Removal Operator Name Role Phone Unavailable Primary Care Provider [...] worry about transportation for future doctor visits, parts picker medication, etc.? No 2024 Housing Stability [...] st Contact Info) Description 05/18/2025 1:20 PM SHELL COREMAKER Office Visit [facility] [address] [place] [address] Siena Nair, [facility] [address] [place] [address] 05/25/2025 5:00 PM SHELL COREMAKER Telephone Check Up [facility] [address] [place] [address] Laura Rich [facility] [address] [place] [address] 06/18/2025 3:20 PM SHELL COREMAKER Office Visit [facility] [address] [place] [address] Luiza Martinez [facility] [address] [place] [address] documented as of this encounter Visit Diagnoses Not on filedocumented in this encounter
--- OUTSIDE RECORDS SUMMARY | 2025-05-14 18:31 | XMS_ITS | Encounter Summary ---
Author Organization [facility] Address [address] [place] [address] Care Team Providers Care Application Development Intern Name Role Phone Unavailable Primary Care Provider Unavailabl e Reason for Visit * Reason Onset Date Comments Appointment reminder 05/07/2025 Spoke with Bri and went over the info for her about her procedure, she did ask about Jewelery and toenail citizen [place] and we told her That toenail citizen [place] was ok and Jewelery needs to be removed Encounter Details Date Type Department Care Team (Late st Contact Info) Description 05/07/2025 Telephone [facility] Labor and Delivery [address] [place] [address] Sami Denton MD [address] [place] [address] [address] [place] [address] Appointment reminder (Spoke with Bri and went over the info for her about her procedure, she did ask about Jewelery and toenail citizen [place] and we told her That toenail citizen [place] was ok and Jewelery needs to be removed) Social History Tobacco Use Types Packs/Day Years [...] worry about transportation for future doctor visits, brass pickler medication, etc.? No 2024 Housing Stability Answer [...] Patient needs follow up regardin 04/22/2025 Comments Yes Sex and Gender Information Value Date Recorded Sex Assigned at Not on file Legal Sex Female 10:22 AM CDT Gender Identity Not on file Sexual Orientation Not on file documented as of this encounter Plan of Treatment Upcoming Encounters Date Type Department Care Team (Late st Contact Info) Description 05/18/2025 1:20 PM GLOBAL PROGRAM DIRECTOR Office Visit [facility] [address] [place] [address] Siena Nair, [facility] [address] [place] [address] 05/25/2025 5:00 PM GLOBAL PROGRAM DIRECTOR [facility]phone [facility] [address] [place] [address] Laura Rich APRN-[facility] [address] [place] [address] 06/18/2025 3:20 PM GLOBAL PROGRAM DIRECTOR Office Visit [facility] [address] [place] [address] Luiza Martinez [facility] [address] [place] [address] documented as of this encounter Visit Diagnoses Not on filedocumented in this encounter
--- OUTSIDE RECORDS SUMMARY | 2025-05-14 18:31 | XMS_ITS | Encounter Summary ---
Author Organization [facility] Address [address] [place] [address] Care Team Providers Care State Federal Relations Deputy Director Name Role Phone Unavailable Primary Care Provider Unavailabl e Encounter Details Date Type Department Care Team (Late st Contact Info) Description 05/14/2025 Mobile Encounter [facility] Midwifery [facility] [address] [place] [address] [facility] [address] [place] [address] Social History Tobacco Use Types Packs/Day Years [...] worry about transportation for future doctor visits, mushroom picker medication, etc.? No 2024 Housing Stability [...] on file documented as of this encounter Progress Notes * Laura Rich APRN-CNM - 05/14/2025 5:37 PM CST Bri is approximately 1 week from for breech presentation. She called stating she is having some swelling in her right leg for the last couple of days. She declines any pain orredness in that leg. She does say that she had some shortness of breath. Blood pressure is 140s over 90s. She declines chest pain. Recommended to her that she get checked out in an emergency room dueto risk of possible DVT, pre-eclampsia and even cardiomyopathy. She lives approximately 2 hours away and the closest ER is in [place] so she will go there. DEAN Roy CADENCE ANALYST documented in this encounter Plan of Treatment Upcoming Encounters Date Type Department Care Team (Late st Contact Info) Description 05/18/2025 1:20 PM EPIC CADENCE ANALYST Office Visit [facility] Mid[facility] [address] [place] [address] Siena Nair CNM [address] [place] [address] 05/25/2025 5:00 PM EPIC CADENCE ANALYST Telephone Check Up [facility] Midw[facility] [address] [place] [address] Laura Rich APRN-CNM [address] [place] [address] 06/18/2025 3:20 PM EPIC CADENCE ANALYST Office Visit [facility] [address] [place] [address] Luiza Martinez CNM [address] [place] [address] documented as of this encounter Visit Diagnoses Not on filedocumented in this encounter
--- OUTSIDE RECORDS SUMMARY | 2025-05-14 18:31 | XMS_ITS | Encounter Summary ---
Author Organization [facility] Address [address] [place] [address] Care Team Providers Care Fittings Finisher Name Role Phone Unavailable Primary Care Provider [...] worry about transportation for future doctor visits, tack picker medication, etc.? No 2024 Housing Stability [...] st Contact Info) Description 05/18/2025 1:20 PM COOK ROOM SUPERVISOR Office Visit [facility] [address] [place] [address] Siena Nair, [facility] [address] [place] [address] 05/25/2025 5:00 PM COOK ROOM SUPERVISOR [facility] [address] [place] [address] [facility] [address] [place] [address] 06/18/2025 3:20 PM COOK ROOM SUPERVISOR Office Visit [facility] [address] [place] [address] Luiza Martinez [facility] [address] [place] [address] documented as of this encounter Visit Diagnoses Not on filedocumented in this encounter
--- NOTE | 2025-05-14 20:11 | ED_ITS ---
HPI - Extremity Problem 2 General: Chief complaint: Extremity Problem,Nontraumatic Stated complaint: Thinks might have blot clot in RT Leg,swelling Time Seen by Provider: 05/14/25 18:43 Source: patient Mode of arrival: ambulatory Limitations: no limitations History of Present Illness: This is a 25-year-old female, 5 days following an uncomplicated C- section delivery, presents for evaluation for right lower extremity swelling. She reports that the swelling appeared gradually and is not associated with pain, redness, or warmth. She also notes a mild headache but denies visual changes, chest pain, shortness of breath, abdominal pain, fever, or urinary symptoms. Her was uncomplicated, with no history of hypertension or preeclampsia. She has no prior history of blood clots or renal disease. She is otherwise feeling well and is following up as scheduled with her loss control engineer. Setter Off stated that she wanted her evaluated for possible blood clot here in the ED. On arrival blood pressure 121/79 with triage. Elevated to 160 systolic at examination. MD Complaint: extremity swelling Onset (ago): day(s) Location: right and lower extremity Associated symptoms: Deny chest pain, fever(s) or rash Related Data Allergies Allergy/AdvReac Type Severity Reaction Status Date / Time No Known Allergies Allergy Verified 05/14/25 18:35 Review of Systems 2 General: Reports: 10 or more systems reviewed and unremarkable except in HPI and below Const: Denies: fever(s) or chills Card: Denies: chest pain Resp: Denies: dyspnea or productive cough GI: Denies: abdominal pain, nausea, vomiting or diarrhea : Denies: flank pain Musc: Reports: extremity swelling (RLE); Denies: neck pain, back pain, extremity pain, joint pain, joint swelling, joint redness, joint warmth, limited range of motion or muscle weakness Skin/Breast: Denies: rash Neuro: Reports: headache(s); Denies: numbness in extremities or weakness in extremities Physical Exam 2 Const: COMMON NORMALS: no acute distress, patient oriented x3 and no limitations GENERAL APPEARANCE: cooperative, comfortable and well developed ORIENTATION/CONSCIOUSNESS: Yes awake, Yes oriented to person, Yes oriented to place and Yes oriented to time HENMT: COMMON NORMALS: normocephalic, atraumatic and hearing grossly normal bilaterally HEAD & SCALP: normocephalic and atraumatic Eye: COMMON NORMALS: Equal, round and reactive pupils present, EOMs intact bilaterally and conjunctivae normal CONJUNCTIVA: Yes conjunctivae normal P UPIL: Yes Equal, round and reactive pupils present Neck/C-Spine: COMMON NORMALS: full ROM, supple and no JVD Resp: COMMON NORMALS: normal respiratory effort, No retractions, No use of accessory muscles and clear to auscultation bilaterally AUSCULTATION: clear to auscultation bilaterally Cardio: COMMON NORMALS: no JVD, regular rate, regular rhythm, No clicks present (Cardio), No murmurs present (Cardio) and No rub (Cardio) RATE: r egular rate RHYTHM: regular rhythm GI: COMMON NORMALS: Normal to inspection, nondistended, normoactive bowel sounds present, Soft to palpation and non-tender AUSCULTATION: Yes normoactive bowel sounds PALPATION: Yes Soft to palpation RECTAL EXAM: d eferred Extremity: COMMON NORMALS: full ROM and capillary refill normal NARRATIVE EXTREMITY EXAM: 1+ pitting edema right lower extremity. No warmth or redness. Distal neurovascular exam is normal. Neuro: COMMON NORMALS: patient oriented x3, moves all extremities, no focal motor deficits and no sensory deficits noted SENSORIUM/ORIENTATION: Yes oriented to person, Yes oriented to place and Yes oriented to time Skin: COMMON NORMALS: no rashes or lesions noted GENERAL SKIN EXAM: no rashes or lesions noted Course 2 Vital Signs: Vital signs: Vital Signs Temperature 98.2 F 05/14/25 18:31 Pulse Rate 84 05/14/25 23:10 Respiratory Rate 18 05/14/25 23:10 Blood Pressure 120/84 05/14/25 23:10 Pulse Oximetry 98 05/14/25 23:10 Oxygen Delivery Me thod Room Air 05/14/25 18:31 MDM - Extremity (Nontraumatic) Medical Decision Making The patient's workup included blood pressure monitoring, CBC, CMP, and urinalysis, as well as urine microalbumin/creatinine ratio. CBC and CMP were within normal limits. Urinalysis demonstrated mild proteinuria, hematuria, and leukocyte esterase, which were interpreted as physiologic changes. Urine microalbumin/creatinine ratio was mildly elevated but consistent with expected findings. Blood pressure readings normalized without intervention despite the elevated readings during physical exam. Spoke to Dr. Matos, EMBLEM DRAWER IN, stating that with no persistent severe range hypertension, neurological symptoms, or laboratory abnormalities that the findings are most consistent with expected fluid shifts rather than associations with preeclampsia. The patient was counseled and advised to continue routine follow-up with her loss control engineer, stable for discharge at this time. DVT is ruled out by ultrasound. Lab Data 05/14/25 21:33 05/14/25 21:33 Radiology Impressions Venous Duplex 05/14/25 20:32 IMPRESSION: No evidence of deep vein thrombosis. Laboratory Results WBC 9.40 10^3/uL (3.29-11.43) 05/14/25 21: RBC 3.81 10^6/uL (3.85-5.65) L 05/14/25: Hgb 11.40 g/dL (11.27-16.99) 05/14/25: Hct 35.2 % (36-47) L 05/14/25: MCV 92.4 fl (85-98) 05/14/25: MCH 29.9 pg (27-33) 05/14/25: MCHC 32.4 g/dL (30-55) 05/14/25: RDW 12.9 % (12.1-15.1) 05/14/25: Plt Count 243 10^3/cmm (157-399) 05/14/25: MPV 10.1 fL (7.4-10.4) 05/14/25: Neut % (Auto) 73.1 % 05/14/25: Lymph % (Auto) 17.9 % 05/14/25: Crane % (Auto) 6.2 % 05/14/25: Eos % (Auto) 2.0 % 05/14/25: Baso % (Auto) 0.5 % 05/14/25: Neut # (Auto) 6.87 10^3/uL (1.8-7.7) 05/14/25: Lymph # (Auto) 1.7 10^3/uL (0.8-4.8) 05/14/25: Crane # (Auto) 0.6 10^3/uL (0.2-0.9) 05/14/25 21:33 Eos # (Auto) 0.2 10^3/uL (0.0-0.8) 05/14/25 21: Baso # (Auto) 0.1 10^3/uL (0.0-0.1) 05/14/25 21: Nucleated RBC % (auto) 0 % 05/14/25 21: Nucleated RBCs # 0.0 /100WBC 05/14/25 21: Sodium 139 mmol/L (136-145) 05/14/25 21: Potassium 4.2 mmol/L (3.5-5.1) 05/14/25 21: Chloride 103 mmol/L (98-107) 05/14/25: Carbon Dioxide 24 mmol/L (22-29) 05/14/25: Anion Gap 16.2 (5-19) 05/14/25: BUN 13 mg/dL (6-20) 05/14/25 21: Creatinine 0.6 mg/dL (0.5-0.9) 05/14/25 21: GFR Calculation 119.9 mL/min (90-130) 05/14/25 21: Glucose 95 mg/dL (65-115) 05/14/25 21: Calculated Osmolality 288 mOsm/kg (285-295) 05/14/25: Calcium 9.4 mg/dL (8.5-10.5) 05/14/25: Total Bilirubin 0.2 mg/dL (0.15-1.2) 05/14/25: AST 16 U/L (0-32) 05/14/25: ALT 26 U/L (0-33) 05/14/25 21: Alkaline Phosphatase 77 U/L (35-105) 05/14/25 21: Total Protein 7.3 g/dL (6.6-8.7) 05/14/25 21: Albumin 3.7 g/dL (3.5-5.2) 05/14/25 21: Globulin 3.6 g/dL (1.3-4.6) 05/14/25 21: Urine Color Red (Yellow) A 05/14/25: Urine Appearance Cloudy (CLEAR) A 05/14/25: Urine pH 6.0 (5-7) 05/14/25 21: Ur Specific O[place]llo 1.016 (1.005-1.030) 05/14/25: Urine Protein 2+ (Negative) A 05/14/25: Urine Glucose (UA) Negative (Normal) 05/14/25: Urine Ketones Negative (Negative) 05/14/25: Urine Blood 3+ (Negative) A 05/14/25 Urine Nitrate Negative (Negative) 05/14/25: Urine Bilirubin Negative (Negative) 05/14/25: Urine Urobilinogen 1.0 mg/dL (Negative) 05/14/25: Ur Leukocyte Esterase 3+ (Negative) A 05/14/25: Urine RBC >100 /hpf (0-2) H 05/14/25: Urine WBC >100 /hpf (0-5) H 05/14/25: Ur Squamous Epith Cells 0-5 /hpf (0-5) 05/14/25: Amorphous Sediment Not Reportable 05/14/25 21: Urine Bacteria None seen /hpf (NONE) 05/14/25: Hyaline Casts 0-4 /lpf H 05/14/25 21: Ur Random Microalbumin 6 ug/dL (0-20) 05/14/25 21: Urine Creatinine 73 mg/dL (28-217) 05/14/25 21: Microalb/Creat Ratio 82 mg/dL (0-20) H 05/14/25: All radiology interpretation(s) finalized by discharge Discharge Plan Discharge Patient Disposition: Home Clinical Impression: edema Condition: Stable Discharge Orders: Discharge ED (Routine); Ordered 05/14/25 Ordered By: Tunde Hearn Patient Instructions: Patient Portal & Adrianne Instructions Activity Restrictions/Additional Instructions: Discharge Instructions: Lower Extremity Swelling and Headache Your Diagnosis You came to the emergency department with swelling in your right leg and headache 5 days after your section delivery. After thorough evaluation including ultrasound of your leg, blood work, and urine tests, we have determined that your symptoms are most likely due to normal fluid shifts that occur after childbirth, particularly after delivery. The ultrasound showed no blood clot in your leg, and your lab work was reassuring. What to Expect Swelling in the legs is common after delivery, especially after section. Your body retains extra fluid during , and it takes time for this fluid to be eliminated after delivery. This swelling typically improves over the next 1-2 weeks as your body adjusts. Blood pressure can also fluctuate in the first week after delivery due to these fluid shifts. While your EMBLEM DRAWER IN does not believe you have preeclampsia at this time, it is important to monitor your symptoms closely. Home Care Instructions To help reduce swelling: - Elevate your legs when sitting or lying down - Lie on your left side when resting - Avoid standing for long periods - Stay well hydrated - Gentle walking as tolerated Warning Signs - Seek Immediate Medical Attention If You Experience: - Severe headache that does not improve with [id number] pain medication or is different from your usual headaches - Vision changes including blurred vision, seeing spots, or temporary vision loss - Severe abdominal pain, especially in the upper right side of your abdomen - Shortness of breath or difficulty breathing - Chest pain - Sudden worsening of leg swelling, especially if one leg becomes much more swollen than the other - Seizures or convulsions - Confusion or altered mental state These symptoms could indicate serious complications including preeclampsia, which can occur even after delivery and requires immediate treatment. Blood Pressure Monitoring Monitor your blood pressure at home if possible. If you develop readings of 1 60/110 or higher, or if you have persistent readings of 140/90 or higher along with any of the warning symptoms listed above, seek medical attention promptly. Follow-Up Care - Follow up with your loss control engineer as scheduled for your routine visit - Your blood pressure should be checked within 7-10 days after discharge - If you develop any warning signs before your scheduled appointment, do not wait - seek immediate medical care Medications Continue any medications as prescribed. If you were not prescribed blood pressure medication, you do not need to start any at this time. Activity You may resume normal activities as tolerated. Avoid heavy lifting and strenuous activity as directed by your obstetric provider. Questions or Concerns If you have any questions or concerns about your symptoms, contact your loss control engineer or obstetric provider. Do not hesitate to return to the emergency department if you experience any of the warning signs listed above. Important Reminders - Most women who develop serious complications like stroke or seizures had warning symptoms for hours or days beforehand - Early recognition and treatment of hypertension can prevent serious complications - Your health and safety are our priority - when in doubt, seek medical evaluation Print Language: Romansh Coding Level of Care Code ED Side Laster Staple for Shree Simental
--- NOTE | 2025-05-14 20:32 | USR_ITS ---
PROCEDURE INFORMATION: Exam: US Duplex Right Lower Extremity Veins, Limited Exam date and time: 05/14/2025 8:55 PM Age: 25 years old Clinical indication: Edema, localized; Lower extremity, right; Additional info: Swelling unilateral TECHNIQUE: Imaging protocol: Real-time duplex ultrasound of the right extremity with 2-D cortés scale, color Doppler flow and spectral waveform analysis including responses to compression and other maneuvers (when performed) with image documentation. Limited exam was focused on the right lower extremity veins. COMPARISON: No relevant prior studies available. FINDINGS: Right deep veins: Unremarkable. The common femoral, femoral, proximal profunda femoral and popliteal veins are patent without thrombus. Normal Doppler waveforms. Normal compressibility and/or augmentation response. Superficial veins: Greater saphenous vein at the saphenofemoral junction is patent without thrombus. Soft tissues: Unremarkable. US/[place] [id number] IMPRESSION: No evidence of deep vein thrombosis.
[2025-05-14 21:36] LABS: Add Urine Microscopic? NO
[2025-05-14 21:38] LABS: Hematocrit 35.2 % (36-47); Hemoglobin 11.40 g/dL (11.27-16.99); Mean Corpuscular HGB Conc 32.4 g/dL (30-55); Mean Corpuscular Hemoglobin 29.9 pg (27-33); Mean Corpuscular Volume 92.4 fl (85-98); Nucleated Red Blood Cells % 0 %; Platelet Count 243 10^3/cmm (157-399); Red Blood Count 3.81 10^6/uL (3.85-5.65); White Blood Count 9.40 10^3/uL (3.29-11.43)
[2025-05-14 21:39] LABS: Glucose Urine UA Negative (Normal); Nitrate Urine Negative (Negative); Specific Gravity, Urine 1.016 (1.005-1.030)
[2025-05-14 21:41] LABS: Charge for UA Resulting for Rev
[2025-05-14 21:42] LABS: Universal Test for UA Present (0)
[2025-05-14 22:09] LABS: Alanine Aminotransferase 26 U/L (0-33); Albumin Level 3.7 g/dL (3.5-5.2); Alkaline Phosphatase 77 U/L (35-105); Anion Gap 16.2 (5-19); Aspartate Amino Transferase 16 U/L (0-32); Blood Urea Nitrogen 13 mg/dL (6-20); Calcium 9.4 mg/dL (8.5-10.5); Carbon Dioxide 24 mmol/L (22-29); Chloride 103 mmol/L (98-107); Globulin 3.6 g/dL (1.3-4.6); Glucose 95 mg/dL (65-115); Osmolality Calculated 288 mOsm/kg (285-295); Potassium 4.2 mmol/L (3.5-5.1); Sodium 139 mmol/L (136-145); Total Protein 7.3 g/dL (6.6-8.7)
[2025-05-14 22:16] LABS: Creatinine Urine, Random 73 mg/dL (28-217)
[2025-05-14 22:17] LABS: Microalbum Creatinine Ratio Ur 82 mg/dL (0-20)
[2025-05-14 23:10] VITALS: BP 120/84; PULSE 84; RESP 18; O2SAT 98
== END 2025-05-14 23:10 | disposition home or self-care (01) ==
PROVIDERS: Emergency Provider Physician Assistant
DX: R60.9 Edema, unspecified (principal); Z98.890 Other specified postprocedural states
CPT/HCPCS: 80053; 81003; 82044; 85025; 87086; 93971; 99284